=== PATIENT | female | born 1945 | race Caucasian/White ===

== ENCOUNTER 2018-08-27 18:05 | Inpatient (IN) | payer MEDICARE, BC ==
[2018-08-27 18:57] LABS: Basophils % (A) 0 %; Eosinophils # (A) 0.1 k/uL (0-0.7); Eosinophils % (A) 1 %; HCT 43.2 % (34.0-46.0); HGB 14.2 gm/dL (11.4-16.0); Lymphocytes # (A) 1.1 k/uL (1.0-4.8); Lymphocytes % (A) 10 %; MCH 30.3 pg (25.0-35.0); Mean Platelet Volume 7.6; Monocytes % (A) 10 %; Neutrophils # (A) 7.7 k/uL (1.3-7.7); Neutrophils % (A) 75 %; Platelet Count 283 k/uL (150-450); RBC 4.69 m/uL (3.80-5.40); RDW 12.6 % (11.5-15.5); WBC 10.2 k/uL (3.8-10.6)
[2018-08-27 19:07] LABS: ALT 20 U/L (9-52); AST 33 U/L (14-36); Alkaline Phosphatase 126 U/L (38-126); Anion Gap 9 mmol/L; Blood Urea Nitrogen 9 mg/dL (7-17); Calcium 8.7 mg/dL (8.4-10.2); Carbon Dioxide 28 mmol/L (22-30); Chloride 96 mmol/L (98-107); Glucose 118 mg/dL (74-99); Potassium 3.7 mmol/L (3.5-5.1); Sodium 133 mmol/L (137-145); Total Bilirubin 0.9 mg/dL (0.2-1.3); Total Protein 5.9 g/dL (6.3-8.2)
[2018-08-27 19:11] LABS: INR 0.9 (<1.2); Partial Thromboplastin Time 26.9 sec (22.0-30.0)
[2018-08-27 19:17] LABS: Creatine Kinase 58 U/L (30-135)
[2018-08-27 19:31] LABS: Creatine Kinase MB 1.1 ng/mL (0.0-2.4); Troponin I <0.012 ng/mL (0.000-0.034)
--- NOTE | 2018-08-27 20:19 | XR ---
EXAMINATION TYPE: XR chest 2V DATE OF EXAM: 08/27/2018 COMPARISON: NONE HISTORY: Tachycardia TECHNIQUE: Frontal and lateral views of the chest are obtained. FINDINGS: There is pulmonary hyperinflation and flattening of the diaphragm. Heart size is normal. T here is patchy infiltrate in the mid and lower lung fish. There is coarsening of the interstitial m arkings. Bones are osteopenic. IMPRESSION: COPD and pulmonary fibrosis. Bilateral patchy lower lobe pneumonia. Small pleural effusi ons. No definite heart failure.
[2018-08-27] MEDS ORDERED: SODIUM CHLORIDE 0.9% 500 ML 500 ML IV STA (22:13)
[2018-08-27] MEDS ORDERED: IPRATROPIUM-ALBUTEROL 3 ML NEB INHALATION STA (22:13)
[2018-08-27] MEDS ORDERED: hydrALAZINE HCL 20 MG/ML 1 ML VIAL IVP STA (22:13)
--- NOTE | 2018-08-27 22:15 | ED ---
SOB HPI - General Chief Complaint: Recheck/Abnormal Lab/Rx Stated Complaint: HIGH BP, LOW O2 Time Seen by Provider: 08/27/18 22:13 Source: patient, family, RN notes reviewed, old records reviewed Mode of arrival: wheelchair Limitations: no limitations - History of Present Illness Initial Comments: This is a 72-year-old female the ER for evaluation. This patient presents for evaluation regards to shortness of breath cough and congestion. Also elevated blood pressure. Patient presented to urgent care was transferred ER for evaluation secondary to low oxygen levels elevated heart rate and elevated blood pressure. Patient states she has not been feeling well. Denies sick contacts denies recent hospitalizations. Patient does admit to recent diagnosis of COPD. MD Complaint: shortness of breath, cough, pain with inspiration -: days(s) Severity: mild Severity scale (1-10): 3 Quality: aching Consistency: constant Improves With: oxygen, rest, bronchodilators Worsens With: exertion Known History Of: COPD Context: recent URI Associated Symptoms: fever, cough - Related Data Home Medications Medication Instructions Recorded Confirmed Cholecalciferol [Vitamin D3] 1,000 unit PO DAILY 08/27/18 08/27/18 Levalbuterol Tartrate [Xopenex Hfa 1 - 2 puff INHALATION RT-QID PRN 08/27/1810/14 Inhaler] Naproxen Sodium [Aleve] 220 mg PO BID PRN 08/27/18 08/27/18 Vitamin B Complex 1 cap PO DAILY 08/27/18 08/27/18 Allergies Allergy/AdvReac Type Severity Reaction Status Date / Time iodine Allergy Anaphylaxis Verified 08/27/18 23:15 Penicillins Allergy Anaphylaxis Verified 08/27/18 23:15 Review of Systems ROS Statement: Those systems with pertinent positive or pertinent negative responses have been documented in the HPI. ROS Other: All systems not noted in ROS Statement are negative. Past Medical History Past Medical History: COPD, Thyroid Disorder Additional Past Medical History / Comment(s): colitis History of Any Multi-Drug Resistant Organisms: None Reported Past Surgical History: Cholecystectomy, Hysterectomy Additional Past Surgical History / Comment(s): throidectomy Smoking Status: Former smoker Past Alcohol Use History: None Reported Past Drug Use History: None Reported - Past Family History Father Family Medical History: No Reported History Mother Family Medical History: Hypertension General Exam Limitations: no limitations General appearance: alert, anxious, cachectic Head exam: Present: atraumatic, normocephalic, normal inspection Eye exam: Present: normal appearance, PERRL, EOMI. Absent: scleral icterus, conjunctival injection, periorbital swelling ENT exam: Present: normal exam, mucous membranes moist Neck exam: Present: normal inspection. Absent: tenderness, meningismus, lymphadenopathy Respiratory exam: Present: normal lung sounds bilaterally. Absent: respiratory distress, wheezes, rales, rhonchi, stridor Cardiovascular Exam: Present: normal rhythm, tachycardia, normal heart sounds. Absent: systolic murmur, diastolic murmur, rubs, gallop, clicks GI/Abdominal exam: Present: soft, normal bowel sounds. Absent: distended, tenderness, guarding, rebound, rigid Extremities exam: Present: normal inspection, full ROM, normal capillary refill. Absent: tenderness, pedal edema, joint swelling, calf tenderness Back exam: Present: normal inspection Neurological exam: Present: alert, oriented X3, CN II-XII intact Psychiatric exam: Present: normal affect, normal mood Skin exam: Present: warm, dry, intact, normal color. Absent: rash Course Vital Signs 08/27/18 08/27/18 08/27/18 18:24 23:00 23:07 Temperature 98.6 F Pulse Rate 121 H 120 H Respiratory 18 20 Rate Blood Pressure 184/104 O2 Sat by Pulse 95 Oximetry 08/27/18 08/27/18 08/27/18 23:20 23:28 23:30 Temperature Pulse Rate 124 H 126 H 130 H Respiratory 23 16 Rate Blood Pressure 177/99 177/99 O2 Sat by Pulse 100 98 Oximetry 08/27/18 08/27/18 08/27/18 23:40 23:50 23:59 Temperature Pulse Rate 133 H 135 H 132 H Respiratory 30 H 22 30 H Rate Blood Pressure 177/99 177/99 O2 Sat by Pulse 95 99 100 Oximetry 08/28/18 08/28/18 08/28/18 00:00 00:10 00:20 Temperature Pulse Rate 135 H 135 H 135 H Respiratory 24 19 18 Rate Blood Pressure 166/92 166/92 166/92 O2 Sat by Pulse 92 L 94 L 96 Oximetry 08/28/18 08/28/18 08/28/18 00:30 00:37 00:40 Temperature Pulse Rate 131 H 134 H 133 H Respiratory 20 18 20 Rate Blood Pressure 172/89 172/89 172/89 O2 Sat by Pulse 97 98 98 Oximetry 08/28/18 08/28/18 08/28/18 00:50 01:00 01:10 Temperature 98.0 F Pulse Rate 133 H 133 H 131 H Respiratory 18 20 17 Rate Blood Pressure 171/93 171/93 162/83 O2 Sat by Pulse 98 99 98 Oximetry - Reevaluation(s) Reevaluation #1: 08/27/18 23:17 Medical record is reviewed Reevaluation #2: 08/27/18 23:17 Patient given breathing treatment, symptom management here in the emergency room as well as blood pressure control Medical Decision Making - Medical Decision Making 72 female the ER for evaluation of shortness of breath. New-onset of COPD, patient also has pneumonia will admit for breathing treatments and antibiotics. - Lab Data Result diagrams: 08/28/18 04:16 08/28/18 04:16 Lab Results 08/27/18 08/27/18 08/27/18 Range/Units 18:28 18:28 18:28 WBC 10.2 (3.8-10.6) k/uL RBC 4.69 (3.80-5.40) m/uL Hgb 14.2 (11.4-16.0) gm/dL Hct 43.2 (34.0-46.0) % MCV 92.0 (80.0-100.0) fL MCH 30.3 (25.0-35.0) pg MCHC 33.0 (31.0-37.0) g/dL RDW 12.6 (11.5-15.5) % Plt Count 283 (150-450) k/uL Neutrophils % 75 % Lymphocytes % 10 % Monocytes % 10 % Eosinophils % 1 % Basophils % 0 % Neutrophils # 7.7 (1.3-7.7) k/uL Lymphocytes # 1.1 (1.0-4.8) k/uL Monocytes # 1.0 (0-1.0) k/uL Eosinophils # 0.1 (0-0.7) k/uL Basophils # 0.0 (0-0.2) k/uL PT (9.0-12.0) sec INR (<1.2) APTT (22.0-30.0) sec Sodium 133 L (137-145) mmol/L Potassium 3.7 (3.5-5.1) mmol/L Chloride 96 L (98-107) mmol/L Carbon Dioxide 28 (22-30) mmol/L Anion Gap 9 mmol/L BUN 9 (7-17) mg/dL Creatinine 0.41 L (0.52-1.04) mg/dL Est GFR (CKD-EPI)AfAm >90 (>60 ml/min/1.73 sqM) Est GFR (CKD-EPI)NonAf >90 (>60 ml/min/1.73 sqM) Glucose 118 H (74-99) mg/dL Calcium 8.7 (8.4-10.2) mg/dL Total Bilirubin 0.9 (0.2-1.3) mg/dL AST 33 (14-36) U/L ALT 20 (9-52) U/L Alkaline Phosphatase 126 (38-126) U/L Total Creatine Kinase 58 (30-135) U/L CK-MB (CK-2) 1.1 (0.0-2.4) ng/mL CK-MB (CK-2) Rel Index 1.9 Troponin I <0.012 (0.000-0.034) ng/mL Total Protein 5.9 L (6.3-8.2) g/dL Albumin 3.0 L (3.5-5.0) g/dL 08/27/18 Range/Units 18:28 WBC (3.8-10.6) k/uL RBC (3.80-5.40) m/uL Hgb (11.4-16.0) gm/dL Hct (34.0-46.0) % MCV (80.0-100.0) fL MCH (25.0-35.0) pg MCHC (31.0-37.0) g/dL RDW (11.5-15.5) % Plt Count (150-450) k/uL Neutrophils % % Lymphocytes % % Monocytes % % Eosinophils % % Basophils % % Neutrophils # (1.3-7.7) k/uL Lymphocytes # (1.0-4.8) k/uL Monocytes # (0-1.0) k/uL Eosinophils # (0-0.7) k/uL Basophils # (0-0.2) k/uL PT 10.0 (9.0-12.0) sec INR 0.9 (<1.2) APTT 26.9 (22.0-30.0) sec Sodium (137-145) mmol/L Potassium (3.5-5.1) mmol/L Chloride (98-107) mmol/L Carbon Dioxide (22-30) mmol/L Anion Gap mmol/L BUN (7-17) mg/dL Creatinine (0.52-1.04) mg/dL Est GFR (CKD-EPI)AfAm (>60 ml/min/1.73 sqM) Est GFR (CKD-EPI)NonAf (>60 ml/min/1.73 sqM) Glucose (74-99) mg/dL Calcium (8.4-10.2) mg/dL Total Bilirubin (0.2-1.3) mg/dL AST (14-36) U/L ALT (9-52) U/L Alkaline Phosphatase (38-126) U/L Total Creatine Kinase (30-135) U/L CK-MB (CK-2) (0.0-2.4) ng/mL CK-MB (CK-2) Rel Index Troponin I (0.000-0.034) ng/mL Total Protein (6.3-8.2) g/dL Albumin (3.5-5.0) g/dL - Radiology Data Radiology results: report reviewed (CXR positive for bilateral pneumonia), image reviewed Disposition Clinical Impression: Community acquired bacterial pneumonia, COPD (chronic obstructive pulmonary disease), Hypertension Disposition: ADMITTED IP TO THIS HOSP Condition: Fair Is patient prescribed a controlled substance at d/c from ED?: No
[2018-08-27] MEDS ORDERED: methylPREDNISolone SOD SUCCI 125 MG/2 ML VIAL IV STA (22:42)
[2018-08-27] MEDS ORDERED: PNEUMONIA PROTOCOL UTILIZED 1 EACH MISC PO PRN (23:26)
[2018-08-27] MEDS ORDERED: AZITHROMYCIN 500 MG in SODIUM CHLORIDE 0.9% 250 ML IVPB STA (23:26)
[2018-08-28] MEDS: LORazepam 2 MG/ML INJ IV PRN ×3 (00:13→21:15)
[2018-08-28] MEDS: SODIUM CHLORIDE 0.9% 1,000 ML IV SCH ×4 (00:17→23:05)
[2018-08-28] MEDS ORDERED: HYDROcodone/APAP 5-325MG 1 EACH TAB PO PRN (01:00)
[2018-08-28 01:37] VITALS: BMI 17.2
[2018-08-28 04:35] LABS: Basophils % (A) 0 %; Eosinophils % (A) 0 %; HCT 42.3 % (34.0-46.0); HGB 13.3 gm/dL (11.4-16.0); Lymphocytes # (A) 0.4 k/uL (1.0-4.8); Lymphocytes % (A) 4 %; MCH 29.2 pg (25.0-35.0); MCHC 31.4 g/dL (31.0-37.0); MCV 93.1 fL (80.0-100.0); Mean Platelet Volume 7.4; Monocytes # (A) 0.2 k/uL (0-1.0); Monocytes % (A) 2 %; Neutrophils # (A) 8.2 k/uL (1.3-7.7); Neutrophils % (A) 93 %; Platelet Count 262 k/uL (150-450); RBC 4.54 m/uL (3.80-5.40); RDW 12.5 % (11.5-15.5); WBC 8.8 k/uL (3.8-10.6)
[2018-08-28 04:48] LABS: Anion Gap 9 mmol/L; Blood Urea Nitrogen 9 mg/dL (7-17); Calcium 8.1 mg/dL (8.4-10.2); Carbon Dioxide 25 mmol/L (22-30); Chloride 100 mmol/L (98-107); Glucose 151 mg/dL (74-99); Potassium 3.5 mmol/L (3.5-5.1); Sodium 134 mmol/L (137-145)
[2018-08-28] MEDS: methylPREDNISolone SOD SUCCI 125 MG/2 ML VIAL IV SCH ×4 (05:24→23:04)
--- NOTE | 2018-08-28 07:52 | HP ---
HISTORY AND PHYSICAL CHIEF COMPLAINT: Shortness of breath. HISTORY OF PRESENT ILLNESS: This is a 72-year-old woman with a past medical history of multiple medical problems including COPD, history of hypertension, colitis, history of cholecystectomy, thyroidectomy being followed by Dr. Andres in the outpatient setting, had not been feeling well for the past several days. Patient has shortness of breath with cough and congestion. Patient presented to Urgent Care, subsequently transferred to the ER. Patient was found to have low oxygen. Patient also had bilateral pneumonia on the base area. The patient is also found to have severe tachycardia as well as anxiety attacks also. The patient admitted for further evaluation and treatment. There is no history of fever, rigors or chills. No history of headache, loss of consciousness or seizures. PAST MEDICAL: COPD, hypothyroidism, history of colitis, cholecystectomy, hysterectomy. MEDICATIONS: Prior to admission; 1. Vitamin B complex 1 p.o. daily. 2. Naprosyn 20 mcg p.o. daily. 3. Xopenex 1 to 2 puffs q.i.d. p.r.n. 4. Vitamin D3 one thousand daily. ALLERGIES: ntd FAMILY HISTORY: No history of heart disease or strokes in the family. SOCIAL HISTORY: Previous history of smoking. No history of current smoking or alcohol. REVIEW OF SYSTEMS: ENT: No diminished hearing or vision. CARDIOVASCULAR: As mentioned earlier. RESPIRATORY: As mentioned earlier. GI: No nausea. : No dysuria. NERVOUS SYSTEM: No numbness or weakness. ALLERGY/IMMUNOLOGY: No asthma or hayfever. MUSCULOSKELETAL: As mentioned earlier. RHEUMATOLOGY: As mentioned earlier. ENDOCRINE: No history of diabetes or hypothyroidism. CONSTITUTIONAL: Negative. DERMATOLOGY: Negative. PSYCHIATRY: As mentioned earlier. PHYSICAL EXAM: Patient is alert and oriented x3. The pulse is 135, blood pressure 160/92, respiration 24, temperature normal, pulse ox 98% on 2 L. HEENT: Conjunctivae normal. NECK: No jugular venous distension. CARDIOVASCULAR SYSTEM: S1, S2, muffled. RESPIRATORY: Breath sounds diminished in the bases, bilateral scattered rhonchi , no crackles. ABDOMEN: Soft, nontender. LEGS: No edema, no swelling. NERVOUS SYSTEM: No focal deficits. LABS: CBC within normal limits. Sodium 133. Albumin is 3, influenza negative. ASSESSMENT: 1. Chronic obstructive pulmonary disease acute exacerbation with acute bilateral pneumonia possibly gram-negative. 2. Tachycardia sinus. 3. Anxiety. 4. Hyponatremia. 5. History of hypothyroidism. 6. Colitis. 7. Cholecystis. 8. History of hysterectomy. RECOMMENDATION: In this 72-year-old woman who presented with multiple complex medical issues, will monitor the patient closely. Continue with the current management and symptomatic treatment. Will initiate broad-spectrum IV antibiotics and also consult Dr. Andres. I would also consult Cardiology for tachycardia, otherwise steroids, DVT prophylaxis. Prognosis guarded because of multiple complex medical issues. Resume the home medications. Guarded prognosis because of multiple complex medical issues. Further recommendations to follow. Also recommend a TSH evaluation also because of tachycardia. See orders for further details. MMODL / IJN: [id number] / MTDD
[2018-08-28] MEDS ORDERED: NON-FORMULARY DRUG (Vitamin B Complex [Vitamin B Complex] 1 CAP) PO SCH (09:00)
[2018-08-28] MEDS: BUDESONIDE 1 MG/2 ML NEBU INHALATION SCH ×2 (09:59→20:23)
[2018-08-28] MEDS: IPRATROPIUM-ALBUTEROL 3 ML NEB INHALATION SCH ×4 (09:59→20:23)
[2018-08-28] MEDS: ENOXAPARIN 40 MG/0.4 ML SYRINGE SQ SCH (10:15)
[2018-08-28] MEDS: PANTOPRAZOLE 40 MG TABLET PO SCH (10:16)
--- NOTE | 2018-08-28 13:49 | XR ---
EXAMINATION TYPE: XR chest 2V DATE OF EXAM: 08/28/2018 COMPARISON: 08/27/2018 TECHNIQUE: PA and lateral views submitted. HISTORY: Cough, pneumonia FINDINGS: Bilateral lower lobe consolidation and small effusion with more localized consolidation along the rig ht lung base. Prominent interstitium. Diffuse severe emphysematous changes. No pneumothorax. Apical p leural thickening. Heart size normal. Atherosclerotic change aorta. IMPRESSION: 1. Bilateral lower lobe infiltrate and small effusion. Diffuse COPD seen. Correlate to exclude underl lia vascular congestion superimposed on a background of COPD.
--- NOTE | 2018-08-28 14:10 | P.CRDCN ---
History of Present Illness History of present illness: This is a pleasant 72-year-old female past medical history COPD and hypothyroidism. She has also former smoker. She denies history of coronary artery disease, hypertension, diabetes mellitus or dyslipidemia. She has never followed with a technologist development for any reason. We have been asked to see her in consultation for tachycardia. She presented to the urgent care yesterday secondary to shortness of breath, cough and congestion. Upon arrival she was noted to have hypoxia and elevated blood pressure. She was transferred here for further evaluation. Upon arrival blood pressure was 184/104 heart rate percent on room air and afebrile. She has remained tachycardic in the 120-130 range. Her blood pressure has remained elevated since admission. She has been diagnosed with bilateral pneumonia and started on antibiotics. She continues to complain of shortness of breath, generalized weakness and fatigue, diaphoresis and palpitations. She denies chest pain, dizziness, nausea or vomiting. Currently maintained on Zithromax IV, Rocephin IV, Solu-Medrol every 6 hours. She is seen and examined laying flat in bed sleeping. She is in no acute distress. Her skin feels clammy to touch. EKG reveals sinus tachycardia with no acute ST or T wave abnormalities noted. Telemetry tracings reveal sinus tachycardia. Chest x-ray on admission reveals COPD and pulmonary fibrosis bilateral patchy lower lobe pneumonia and a small pleural effusion. Repeat this morning reveals bilateral lower lobe infiltrate and small effusion, diffuse COPD and possibility of underlying vascular congestion superimposed on COPD considered. Laboratory data reviewed, WBC 8.8, hemoglobin 13.3, platelets 262, sodium 134, potassium 3.5, creatinine 0.34, lactic acid 2. 9 repeat 1.0, troponin negative 1, TSH 3.29. She has influenza A and B-. Most recent echocardiogram obtained in 2014 reveals preserved left ventricular systolic function with ejection fraction 60-65% with mild tricuspid regurgitation. At the time of my exam: CONSTITUTIONAL: Denies fever. Denies chills. EYES: Denies blurred vision. Denies vision changes. Denies eye pain. EARS, NOSE, MOUTH & THROAT: Denies headache. Denies sore throat. Denies ear pain. CARDIOVASCULAR: Denies chest pain. Complains of shortness of breath. Denies orthopnea. Denies PND. Denies palpitations. RESPIRATORY: Complains of cough. GASTROINTESTINAL: Denies abdominal pain. Denies diarrhea. Denies constipation. Denies nausea. Denies vomiting. MUSCULOSKELETAL: Denies myalgias. INTEGUMENTARY: Denies pruitis. Denies rash. NEUROLOGIC: Denies numbness. Denies tingling. Denies weakness. PSYCHIATRIC: Denies anxiety. Denies depression. ENDOCRINE: Denies fatigue. Denies weight change. Denies polydipsia. Denies polyurina. GENITOURINARY: Denies burning, hematuria or urgency with micturation. HEMATOLOGIC: Denies history of anemia. Denies bleeding. Blood pressure 162/99 heart rate 127 afebrile maintaining oxygen saturation cannula GENERAL: This is a 72-year-old female in no apparent distress at the time of my examination. Mildly diaphoretic. HEENT: Head is atraumatic, normocephalic. Pupils are equal, round. Sclerae anicteric. Conjunctivae are clear. Mucous membranes of the mouth are moist. Neck is supple. There is no jugular venous distention. No carotid bruit is heard. LUNGS: C course rhonchi noted no rales or wheezes. No chest wall tenderness is noted on palpation or with deep breathing. HEART: Regular rate and rhythm with faint systolic ejection murmur at the base, no rubs or gallops. S1 and S2 heard. ABDOMEN: Soft, nontender. Bowel sounds are heard. No organomegaly noted. EXTREMITIES: No evidence of peripheral edema and no calf tenderness noted. VASCULAR: Radial and dorsalis pedis pulses palpated, no evidence of clubbing. NEUROLOGIC: Patient is awake, alert and oriented x3. ASSESSMENT Bilateral pneumonia Sinus tachycardia Lactic acidosis COPD Hypertension Hyponatremia PLAN Obtain 2-D echocardiogram and Doppler study to assess cardiac structure and function. Initiate the patient on losartan 25 mg daily. Tachycardia is sinus, related to an underlying cause most likely secondary to pneumonia. We will continue to follow and make recommendations accordingly. Thank you kindly for this consultation. Nurse Practitioner note has been reviewed, I agree with a documented findings and plan of care. Patient was seen and examined. Past Medical History Past Medical History: COPD, Thyroid Disorder Additional Past Medical History / Comment(s): colitis History of Any Multi-Drug Resistant Organisms: None Reported Past Surgical History: Cholecystectomy, Hysterectomy Additional Past Surgical History / Comment(s): thyroidectomy Smoking Status: Former smoker Past Alcohol Use History: None Reported Past Drug Use History: None Reported - Past Family History Father Family Medical History: No Reported History Mother Family Medical History: Hypertension Medications and Allergies Home Medications Medication Instructions Recorded Confirmed Type Cholecalciferol [Vitamin D3] 1,000 unit PO DAILY 08/27/18 08/27/18 History Levalbuterol Tartrate [Xopenex Hfa 1 - 2 puff INHALATION RT-QID PRN 08/27/1810/14 History Inhaler] Naproxen Sodium [Aleve] 220 mg PO BID PRN 08/27/18 08/27/18 History Vitamin B Complex 1 cap PO DAILY 08/27/18 08/27/18 History Allergies Allergy/AdvReac Type Severity Reaction Status Date / Time iodine Allergy Anaphylaxis Verified 08/27/18 23:15 Penicillins Allergy Anaphylaxis Verified 08/27/18 23:15 Physical Exam Vitals: Vital Signs Temp Pulse Pulse Resp BP BP Pulse Ox 08/28/18 10:15 127 H 18 08/28/18 10:10 120 H 08/28/18 09:59 116 H 08/28/18 07:00 98.5 F 127 H 18 162/99 96 08/28/18 02:03 98.6 F 132 H 15 160/85 94 L 08/28/18 01:10 98.0 F 131 H 17 162/83 98 08/28/18 01:00 133 H 20 171/93 99 08/28/18 00:50 133 H 18 171/93 98 08/28/18 00:40 133 H 20 172/89 98 08/28/18 00:37 134 H 18 172/89 98 08/28/18 00:30 131 H 20 172/89 97 08/28/18 00:20 135 H 18 166/92 96 08/28/18 00:10 135 H 19 166/92 94 L 08/28/18 00:00 135 H 24 166/92 92 L 08/27/18 23:59 132 H 30 H 100 08/27/18 23:50 135 H 22 177/99 99 08/27/18 23:40 133 H 30 H 177/99 95 08/27/18 23:30 130 H 16 177/99 98 08/27/18 23:28 126 H 08/27/18 23:20 124 H 23 177/99 100 08/27/18 23:07 120 H 08/27/18 23:00 20 08/27/18 18:24 98.6 F 121 H 18 184/104 95 Intake and Output 08/27/18 08/28/18 08/28/18 22:59 06:59 14:59 Other: Weight 45.359 kg 45.359 kg Results 08/28/18 04:16 08/28/18 04:16 Cardiac Enzymes 08/27/18 08/27/18 Range/Units 18:28 18:28 AST 33 (14-36) U/L CK-MB (CK-2) 1.1 (0.0-2.4) ng/mL Troponin I <0.012 (0.000-0.034) ng/mL Coagulation 08/27/18 Range/Units 18:28 PT 10.0 (9.0-12.0) sec APTT 26.9 (22.0-30.0) sec CBC 08/27/18 08/28/18 Range/Units 18:28 04:16 WBC 10.2 8.8 (3.8-10.6) k/uL RBC 4.69 4.54 (3.80-5.40) m/uL Hgb 14.2 13.3 (11.4-16.0) gm/dL Hct 43.2 42.3 (34.0-46.0) % Plt Count 283 262 (150-450) k/uL Comprehensive Metabolic Panel 08/27/18 08/28/18 Range/Units 18:28 04:16 Sodium 133 L 134 L (137-145) mmol/L Potassium 3.7 3.5 (3.5-5.1) mmol/L Chloride 96 L 100 (98-107) mmol/L Carbon Dioxide 28 25 (22-30) mmol/L BUN 9 9 (7-17) mg/dL Creatinine 0.41 L 0.34 L (0.52-1.04) mg/dL Glucose 118 H 151 H (74-99) mg/dL Calcium 8.7 8.1 L (8.4-10.2) mg/dL AST 33 (14-36) U/L ALT 20 (9-52) U/L Alkaline Phosphatase 126 (38-126) U/L Total Protein 5.9 L (6.3-8.2) g/dL Albumin 3.0 L (3.5-5.0) g/dL Current Medications Generic Name Dose Route Start Last Admin Trade Name Freq PRN Reason Stop Dose Admin Hydrocodone Bitart/Acetaminophen 1 each 08/28/18 01:00 [place] 5-325 PO Q6HR PRN Pain Albuterol/Ipratropium 3 ml 08/28/18 08:00 08/28/18 13:21 Duoneb 0.5 Mg-3 Mg/3 Ml Soln INHALATION Not Given RT-QID PRISCILLA Azithromycin 500 mg 08/28/18 23:28 Zithromax PO Q24H PRISCILLA Budesonide 1 mg 08/28/18 08:00 08/28/18 09:59 Pulmicort INHALATION 1 mg RT-BID PRISCILLA Administration Enoxaparin Sodium 40 mg 08/28/18 09:00 08/28/18 10:15 Lovenox SQ 40 mg DAILY PRISCILLA Administration Ceftriaxone Sodium 1,000 mg/ 50 mls @ 100 mls/hr 08/28/18 23:28 Sodium Chloride IVPB Q24H PRISCILLA Sodium Chloride 1,000 mls @ 100 mls/hr 08/27/18 23:30 08/28/18 10:16 Saline 0.9% IV 100 mls/hr .Q10H PRISCILLA Administration Lorazepam 0.5 mg 08/28/18 00:00 08/28/18 00:13 Ativan IV 08/30/18 13:00 0.5 mg Q8HR PRN Administration Anxiety Methylprednisolone Sodium Succinate 60 mg 08/28/18 06:00 08/28/18 12:20 Solu-Medrol IV 60 mg Q6HR PRISCILLA Administration Miscellaneous Information 1 each 08/27/18 23:26 Pneumonia Protocol Utilized PO ONCE PRN Per Protocol Naproxen 250 mg 08/28/18 00:59 Naprosyn PO BID PRN Pain Pantoprazole Sodium 40 mg 08/28/18 07:30 08/28/18 10:16 Protonix PO Not Given AC-[id number] PRISCILLA Intake and Output 08/27/18 08/28/18 08/28/18 22:59 06:59 14:59 Other: Weight 45.359 kg 45.359 kg 08/28/18 04:16 08/28/18 04:16
--- NOTE | 2018-08-28 14:30 | P.CNPUL ---
History of Present Illness Consult date: 08/28/18 Requesting physician: Po Monroy Reason for consult: dyspnea, cough, COPD, pneumonia, pleural effusion, abnormal CXR/CT Chief complaint: Cough, congestion, shortness of breath, weakness History of present illness: This is a 72-year-old white female patient recently diagnosed with COPD, presented to the emergency department on 08/27/2018 at 1800 for evaluation of worsening shortness of breath, cough, chest congestion, elevated blood pressure. Patient presented to the urgent care and transferred to the emergency department in view of hypoxemia, tachycardia and hypertension. Patient had a recent upper respiratory infection. Chest x-ray showed COPD, coarsening of the interstitial markings, bilateral patchy lower lobe pneumonia, small pleural effusions. Lab work was negative for any leukocytosis, WBC was 10.2, hemoglobin is 14.2, sodium was 133, potassium is 3.7, chloride was 96, bun was 9, creatinine was 0.41, asthma lactic acid was 2.9, improved with fluid boluses, down to 1, troponin was negative 1, influenza was negative. Follow- up chest x-ray today shows bilateral lower lobe infiltrate and small effusion, prominent interstitium, suggesting fluid overload. Patient has been afebrile, but diaphoretic, she is tachycardic, with a heart rate up to 120 BPM, pressure is 162/99, pulse ox on 3 L per nasal cannula is 96%, she is lethargic, easily arousable, fatigued and weak. She was started on a combination of Rocephin and Zithromax, belies bronchodilators, IV steroids. Echo with Doppler has been ordered, cardiology is following. Of note patient's FEV1 on 01/14/2018 was 0.45 L, or 22% of predicted, and low DLCO of 25% predicted, consistent with stage IV COPD, emphysema. Patient did have a 6 minute walk test in the office, noted to be hypoxemic, with a pulse ox of 86% at ambulation, she qualified for home oxygen, but has been reluctant to use it. She was also reluctant to use since inhalers and nebulized treatments, currently just on Xopenex HFA 45 mcg 2 puffs every 6 hours as needed. Does not have a primary care provider, was actually referred to Dr. Andres by the urgent care clinic where she would go with symptoms of recurrent cough, shortness of breath and wheezing. Review of Systems All systems: negative Constitutional: Denies chills, Denies fever Eyes: denies blurred vision, denies pain Ears, nose, mouth and throat: Denies headache, Denies sore throat Cardiovascular: Denies chest pain, Denies shortness of breath Respiratory: Reports cough, Reports cough with sputum, Reports dyspnea, Reports respiratory infections, Reports wheezing Gastrointestinal: Denies abdominal pain, Denies diarrhea, Denies nausea, Denies vomiting Genitourinary: Denies dysuria, Denies hematuria Musculoskeletal: Denies myalgias Integumentary: Denies pruritus, Denies rash Neurological: Denies numbness, Denies weakness Psychiatric: Denies anxiety, Denies depression Endocrine: Denies fatigue, Denies weight change Past Medical History Past Medical History: COPD, Thyroid Disorder Additional Past Medical History / Comment(s): colitis History of Any Multi-Drug Resistant Organisms: None Reported Past Surgical History: Cholecystectomy, Hysterectomy Additional Past Surgical History / Comment(s): thyroidectomy Smoking Status: Former smoker Past Alcohol Use History: None Reported Past Drug Use History: None Reported - Past Family History Father Family Medical History: No Reported History Mother Family Medical History: Hypertension Medications and Allergies Home Medications Medication Instructions Recorded Confirmed Type Cholecalciferol [Vitamin D3] 1,000 unit PO DAILY 08/27/18 08/27/18 History Levalbuterol Tartrate [Xopenex Hfa 1 - 2 puff INHALATION RT-QID PRN 08/27/1810/14 History Inhaler] Naproxen Sodium [Aleve] 220 mg PO BID PRN 08/27/18 08/27/18 History Vitamin B Complex 1 cap PO DAILY 08/27/18 08/27/18 History Allergies Allergy/AdvReac Type Severity Reaction Status Date / Time iodine Allergy Anaphylaxis Verified 08/27/18 23:15 Penicillins Allergy Anaphylaxis Verified 08/27/18 23:15 Physical Exam Vitals: Vital Signs Temp Pulse Pulse Resp BP BP Pulse Ox 08/28/18 10:15 127 H 18 08/28/18 10:10 120 H 08/28/18 09:59 116 H 08/28/18 07:00 98.5 F 127 H 18 162/99 96 08/28/18 02:03 98.6 F 132 H 15 160/85 94 L 08/28/18 01:10 98.0 F 131 H 17 162/83 98 08/28/18 01:00 133 H 20 171/93 99 08/28/18 00:50 133 H 18 171/93 98 08/28/18 00:40 133 H 20 172/89 98 08/28/18 00:37 134 H 18 172/89 98 08/28/18 00:30 131 H 20 172/89 97 08/28/18 00:20 135 H 18 166/92 96 08/28/18 00:10 135 H 19 166/92 94 L 08/28/18 00:00 135 H 24 166/92 92 L 08/27/18 23:59 132 H 30 H 100 08/27/18 23:50 135 H 22 177/99 99 08/27/18 23:40 133 H 30 H 177/99 95 08/27/18 23:30 130 H 16 177/99 98 08/27/18 23:28 126 H 08/27/18 23:20 124 H 23 177/99 100 08/27/18 23:07 120 H 08/27/18 23:00 20 08/27/18 18:24 98.6 F 121 H 18 184/104 95 Intake and Output 08/27/18 08/28/18 08/28/18 22:59 06:59 14:59 Other: Weight 45.359 kg 45.359 kg GENERAL EXAM: Somnolent, but easily arousable, 72-year-old frail looking elderly female, 2 L per nasal cannula, mildly short of breath, has a congested nonproductive cough, diaphoretic HEAD: Normocephalic/atraumatic. EYES: Normal reaction of pupils, equal size. Conjunctiva pink, sclera white. NOSE: Clear with pink turbinates. THROAT: No erythema or exudates. NECK: No masses, no JVD, no thyroid enlargement, no adenopathy. CHEST: No chest wall deformity. Symmetrical expansion. LUNGS: Diffuse rhonchi, rales, wheezes CVS: Regular rate and rhythm, normal S1 and S2, no gallops, no murmurs, no rubs. Tachycardic, with a rate up to 127 BPM ABDOMEN: Soft, nontender. No hepatosplenomegaly, normal bowel sounds, no guarding or rigidity. EXTREMITIES: No clubbing, no edema, no cyanosis, 2+ pulses and upper and lower extremities. MUSCULOSKELETAL: Muscle strength and tone normal. SPINE: No scoliosis or deformity SKIN: No rashes CENTRAL NERVOUS SYSTEM: Somnolent and oriented -3. No focal deficits, tone is normal in all 4 extremities. Results - Laboratory Findings CBC and BMP: 08/28/18 04:16 08/28/18 04:16 PT/INR, D-dimer PT 10.0 sec (9.0-12.0) 08/27/18 18:28 INR 0.9 (<1.2) 08/27/18 18:28 Abnormal lab findings: Abnormal Labs 08/27/18 08/28/18 08/28/18 18:28 00:20 04:16 Neutrophils # 8.2 H Lymphocytes # 0.4 L Sodium 133 L Chloride 96 L Creatinine 0.41 L Glucose 118 H Plasma Lactic Acid Krishan 2.9 H* Calcium Total Protein 5.9 L Albumin 3.0 L 08/28/18 04:16 Neutrophils # Lymphocytes # Sodium 134 L Chloride Creatinine 0.34 L Glucose 151 H Plasma Lactic Acid Krishan Calcium 8.1 L Total Protein Albumin - Diagnostic Findings Chest x-ray: report reviewed, image reviewed Assessment and Plan Plan: Assessment: #1. Acute on chronic respiratory failure secondary to bibasilar infiltrates small effusions, likely related to community-acquired pneumonia #2. Lactic acidosis, improved with IV boluses #3. Mild hyponatremia, improving #4. Acute exacerbation of COPD #5. Stage IV COPD,pulmonary emphysema, chronic hypoxemic respiratory failure, underlying FEV1 of 0.45 L or 22% of predicted, with diffusion capacity of 25% of predicted. Patient is reluctant to wear home O2, although she qualifies for it. ALso reluctant to use any inhalers or nebulized treatments #6. Hypothyroidism #7. Former smoker #8. History of peripheral arterial occlusive disease #9. Chronic exertional dyspnea, and cough #10. Tachycardia Plan: Continue antibiotic coverage, send a sputum culture, continue with IV Solu- Medrol, nebulized bronchodilators, Pulmicort. Chest x-rays have been reviewed with Dr. Ferro, and showed bibasilar infiltrates and small effusions, interstitial prominence suggesting fluid overload, and bibasilar pneumonia. GI and DVT prophylaxis. Colace pending, cardiology consult is pending. Obtain to closely follow I performed a history & physical examination of the patient and discussed their management with my nurse practitioner, Daisy Sadler. I reviewed the nurse practitioner's note and agree with the documented findings and plan of care. Lung sounds are positive for diffuse rhonchi and rales. The findings and the impression was discussed with the patient. I attest to the documentation by the nurse practitioner. Time with Patient: Greater than 30
[2018-08-28] MEDS: LOSARTAN 25 MG TAB PO SCH (16:47)
[2018-08-28 17:13] LABS: Glucose,Whole Blood 143 mg/dL (75-99)
[2018-08-28] MEDS: INSULIN ASPART 100 UNIT/ML 1 ML 10 ML VIAL SQ SCH ×2 (17:39→21:12)
[2018-08-28 20:13] LABS: Glucose,Whole Blood 178 mg/dL (75-99)
[2018-08-28] MEDS: AZITHROMYCIN 500 MG TAB PO SCH (23:04)
--- NOTE | 2018-08-29 00:16 | PN ---
PROGRESS NOTE DATE OF SERVICE: 09/24/2018. HISTORY: This 72-year-old woman was admitted with significant shortness of breath and COPD exacerbation also had cardiac arrhythmia, sinus tachycardia as well. The patient is being closely monitored. Lactic acid is elevated to 2.9. Influenza is negative. Cardiology saw the patient and is monitoring closely. Recent echocardiogram showed preserved ejection fraction. Bilateral pneumonia was suspected. Dr. Andres is following the patient closely and closely monitoring at this time. REVIEW OF SYSTEM: CARDIOVASCULAR: As mentioned. GI: As mentioned. : As mentioned. CURRENT MEDICATIONS: Reviewed, include: 1. [place] 5 mg daily. 2. DuoNeb q.i.d. 3. Zithromax 5 mg daily. 4. Pulmicort. 5. Rocephin 1 g daily. 6. Lovenox. 8. Ativan. 9. Cozaar. 10.Solu-Medrol. 11.Naprosyn. 12.Protonix. EXAM: Patient is alert, oriented x3. Pulse is 116, blood pressure 136/73, respirations 18, temperature 98.1, pulse ox 97% on room air. HEENT: Conjunctivae normal. NECK: No JVD. CARDIOVASCULAR: S1 and S2 muffled. LUNGS: Breath sounds diminished at the bases. Scattered rhonchi and crackles. ABDOMEN: Soft, nontender. EXTREMITIES: No edema, no swelling. NERVOUS SYSTEM: No focal deficits. LABS: CBC within normal. Sodium 134, glucose 134. ASSESSMENT: 1. Chronic obstructive pulmonary disease acute exacerbation with acute bibasilar pneumonia, possibly gram-negative, possibly community-acquired with early sepsis present on admission. 2. Elevated lactic acid. 3. Sinus tachycardia. 4. Anxiety. 5. Hyponatremia. 6. History hypothyroidism. 7. History of colitis. 8. History cholecystitis. 9. History of hysterectomy. RECOMMENDATIONS: Continue current management and symptomatic treatment. Cultures are negative so far. I would recommend continue the broad-spectrum IV antibiotics. Closely follow with Dr. Andres. Continue with steroids. Continue the rest of the medications. Guarded prognosis because of multiple complex medical issues. Further recommendations to follow. Continue Ativan for anxiety. MMODL / IJN: [id number] / MTDD
[2018-08-29 04:30] LABS: Hemoglobin A1C 5.4 % (4.0-6.0)
[2018-08-29] MEDS: methylPREDNISolone SOD SUCCI 125 MG/2 ML VIAL IV SCH ×3 (05:40→17:37)
[2018-08-29 07:11] LABS: Glucose,Whole Blood 157 mg/dL (75-99)
[2018-08-29] MEDS: INSULIN ASPART 100 UNIT/ML 1 ML 10 ML VIAL SQ SCH ×4 (07:42→20:43)
[2018-08-29] MEDS: PANTOPRAZOLE 40 MG TABLET PO SCH (07:42)
[2018-08-29] MEDS: LOSARTAN 25 MG TAB PO SCH (07:42)
[2018-08-29] MEDS: ENOXAPARIN 40 MG/0.4 ML SYRINGE SQ SCH (07:43)
[2018-08-29 08:22] LABS: Basophils # (A) 0.1 k/uL (0-0.2); Basophils % (A) 0 %; Eosinophils # (A) 0.1 k/uL (0-0.7); Eosinophils % (A) 0 %; HCT 38.1 % (34.0-46.0); HGB 12.4 gm/dL (11.4-16.0); Lymphocytes # (A) 0.7 k/uL (1.0-4.8); Lymphocytes % (A) 4 %; MCH 30.8 pg (25.0-35.0); MCHC 32.5 g/dL (31.0-37.0); MCV 94.7 fL (80.0-100.0); Mean Platelet Volume 8.6; Monocytes # (A) 0.5 k/uL (0-1.0); Monocytes % (A) 3 %; Neutrophils # (A) 17.5 k/uL (1.3-7.7); Neutrophils % (A) 92 %; Platelet Count 306 k/uL (150-450); RBC 4.03 m/uL (3.80-5.40)
[2018-08-29] MEDS: BUDESONIDE 1 MG/2 ML NEBU INHALATION SCH ×2 (08:34→20:18)
[2018-08-29] MEDS: IPRATROPIUM-ALBUTEROL 3 ML NEB INHALATION SCH ×4 (08:34→20:18)
[2018-08-29 08:37] LABS: Anion Gap 6 mmol/L; Blood Urea Nitrogen 13 mg/dL (7-17); Calcium 8.7 mg/dL (8.4-10.2); Carbon Dioxide 26 mmol/L (22-30); Chloride 106 mmol/L (98-107); Glucose 146 mg/dL (74-99); Potassium 3.9 mmol/L (3.5-5.1); Sodium 138 mmol/L (137-145)
--- NOTE | 2018-08-29 11:51 | ECHOF ---
Referral Reason:sob MEASUREMENTS -------- HEIGHT: 162.6 cm WEIGHT: 45.4 kg BP: RVIDd: 2.3 cm (< 3.3) IVSd: 0.7 cm (0.6 - 1.1) LVIDd: 3.7 cm (3.9 - 5.3) LVPWd: 0.8 cm (0.6 - 1.1) IVSs: 1.0 cm LVIDs: 2.3 cm LVPWs: 1.1 cm LAESV Index (A-L): 8.32 ml/m MV E [place]: 0.82 m/s MV DecT: 257 ms MV A [place]: 1.41 m/s MV E/A Ratio: 0.58 RAP: 15.00 mmHg RVSP: 48.25 mmHg FINDINGS -------- Resting tachycardia (HR>100bpm). This was a technically adequate study. The left ventricular size is normal. Left ventricular wall thickness is normal. Overall left vent ricular systolic function is normal with, an EF between 55 - 60 %. The right ventricle is normal in size and function. Normal LA size by volume 22+/-6 ml/m2. The right atrium is normal in size. There is mild aortic valve sclerosis. There is no evidence of aortic regurgitation. There is no e vidence of aortic stenosis. The mitral valve leaflets are mildly thickened. Moderate mitral annular calcification present. Th ere is trace to mild mitral regurgitation. Trace tricuspid regurgitation present. There is borderline pulmonary hypertension. The right vent ricular systolic pressure, as measured by Doppler, is 48.25mmHg. The pulmonic valve was not well visualized. The aortic root size is normal. The inferior vena cava is dilated with poor inspiratory collapse which is consistent with estimated r ight atrial pressure of 20 mmHg. There is no pericardial effusion. CONCLUSIONS -------- 1. Resting tachycardia (HR>100bpm). 2. This was a technically adequate study. 3. The left ventricular size is normal. 4. Left ventricular wall thickness is normal. 5. Overall left ventricular systolic function is normal with, an EF between 55 - 60 %. 6. Normal LA size by volume 22+/-6 ml/m2. 7. There is mild aortic valve sclerosis. 8. The mitral valve leaflets are mildly thickened. 9. Moderate mitral annular calcification present. 10. There is trace to mild mitral regurgitation. 11. Trace tricuspid regurgitation present. 12. There is borderline pulmonary hypertension. 13. The right ventricular systolic pressure, as measured by Doppler, is 48.25mmHg. 14. The pulmonic valve was not well visualized. 15. The aortic root size is normal. 16. The inferior vena cava is dilated with poor inspiratory collapse which is consistent with estimat ed right atrial pressure of 20 mmHg. 17. There is no pericardial effusion. PROBATION SUPERVISOR: Jaylan Solares RDCS
[2018-08-29 12:00] LABS: Glucose,Whole Blood 132 mg/dL (75-99)
--- NOTE | 2018-08-29 16:42 | P.PN ---
Subjective Progress Note Date: 08/29/18 Principal diagnosis: Acute on chronic respiratory failure secondary to basilar infiltrate small effusions, suspect mainly acquired pneumonia. This is a 72-year-old white female patient recently diagnosed with COPD, presented to the emergency department on 08/27/2018 at 1800 for evaluation of worsening shortness of breath, cough, chest congestion, elevated blood pressure. Patient presented to the urgent care and transferred to the emergency department in view of hypoxemia, tachycardia and hypertension. Patient had a recent upper respiratory infection. Chest x-ray showed COPD, coarsening of the interstitial markings, bilateral patchy lower lobe pneumonia, small pleural effusions. Lab work was negative for any leukocytosis, WBC was 10.2, hemoglobin is 14.2, sodium was 133, potassium is 3.7, chloride was 96, bun was 9, creatinine was 0.41, asthma lactic acid was 2.9, improved with fluid boluses, down to 1, troponin was negative 1, influenza was negative. Follow- up chest x-ray today shows bilateral lower lobe infiltrate and small effusion, prominent interstitium, suggesting fluid overload. Patient has been afebrile, but diaphoretic, she is tachycardic, with a heart rate up to 120 BPM, pressure is 162/99, pulse ox on 3 L per nasal cannula is 96%, she is lethargic, easily arousable, fatigued and weak. She was started on a combination of Rocephin and Zithromax, belies bronchodilators, IV steroids. Echo with Doppler has been ordered, cardiology is following. Of note patient's FEV1 on 01/14/2018 was 0.45 L, or 22% of predicted, and low DLCO of 25% predicted, consistent with stage IV COPD, emphysema. Patient did have a 6 minute walk test in the office, noted to be hypoxemic, with a pulse ox of 86% at ambulation, she qualified for home oxygen, but has been reluctant to use it. She was also reluctant to use since inhalers and nebulized treatments, currently just on Xopenex HFA 45 mcg 2 puffs every 6 hours as needed. Does not have a primary care provider, was actually referred to Dr. Andres by the urgent care clinic where she would go with symptoms of recurrent cough, shortness of breath and wheezing. The patient is seen again today 08/29/2017 in follow-up on the regular medical floor. She is awake and alert in no acute distress. She is breathing better today as compared to yesterday. Not quite back to her baseline. She is maintaining O2 saturations in the 90s on 2 L/m per nasal cannula. She's been afebrile. Slightly tachycardic. Blood culture reveals no growth to date. Urine culture pending. White count 19.0. Hemoglobin 12.4. Creatinine 0.40. She remains on ceftriaxone and azithromycin. Objective - Vital Signs Vital signs: Vital Signs Temp 97.9 F 08/29/18 15:00 Pulse 121 H 08/29/18 15:00 Resp 16 08/29/18 15:00 BP 127/76 08/29/18 15:00 Pulse Ox 96 08/29/18 15:00 Intake & Output 08/28/18 08/29/18 08/29/18 18:59 06:59 18:59 Intake Total 700 1850 Balance 700 1850 Weight 45.359 kg Intake: Intake, IV Titration 700 1350 Amount Sodium Chloride 0.9% 1, 700 1250 000 ml @ 100 mls/hr IV . Q10H [facility] Rx#:[id number] cefTRIAXone 1,000 mg In 100 Sodium Chloride 0.9% 50 ml @ 100 mls/hr IVPB Q24H [facility] Rx#:[id number] Oral 500 Other: Voiding Method Toilet # Voids 1 2 3 - Exam GENERAL EXAM: Awake, alert, 72-year-old frail looking elderly female, 2 L per nasal cannula, mildly short of breath, has a congested nonproductive cough, diaphoretic HEAD: Normocephalic/atraumatic. EYES: Normal reaction of pupils, equal size. Conjunctiva pink, sclera white. NOSE: Clear with pink turbinates. THROAT: No erythema or exudates. NECK: No masses, no JVD, no thyroid enlargement, no adenopathy. CHEST: No chest wall deformity. Symmetrical expansion. LUNGS: Diffuse rhonchi, rales, wheezes CVS: Regular rate and rhythm, normal S1 and S2, no gallops, no murmurs, no rubs. Tachycardic, with a rate up to 127 BPM ABDOMEN: Soft, nontender. No hepatosplenomegaly, normal bowel sounds, no guarding or rigidity. EXTREMITIES: No clubbing, no edema, no cyanosis, 2+ pulses and upper and lower extremities. MUSCULOSKELETAL: Muscle strength and tone normal. SPINE: No scoliosis or deformity SKIN: No rashes CENTRAL NERVOUS SYSTEM: Somnolent and oriented -3. No focal deficits, tone is normal in all 4 extremities. - Labs CBC & Chem 7: 08/29/18 07:09 08/29/18 07:09 Labs: Abnormal Lab Results - Last 24 Hours (Table) 08/28/18 08/28/18 08/29/18 Range/Units 17:01 20:02 06:53 WBC (3.8-10.6) k/uL Neutrophils # (1.3-7.7) k/uL Lymphocytes # (1.0-4.8) k/uL Creatinine (0.52-1.04) mg/dL Glucose (74-99) mg/dL POC Glucose (mg/dL) 143 H 178 H 157 H (75-99) mg/dL 08/29/18 08/29/18 08/29/18 Range/Units 07:09 07:09 11:41 WBC 19.0 H (3.8-10.6) k/uL Neutrophils # 17.5 H (1.3-7.7) k/uL Lymphocytes # 0.7 L (1.0-4.8) k/uL Creatinine 0.40 L (0.52-1.04) mg/dL Glucose 146 H (74-99) mg/dL POC Glucose (mg/dL) 132 H (75-99) mg/dL Microbiology - Last 24 Hours (Table) 08/28/18 16:07 Urine Culture - Preliminary Urine,Voided 08/28/18 00:20 Blood Culture - Preliminary Blood No Growth after 24 hours Assessment and Plan Assessment: Assessment: #1. Acute on chronic respiratory failure secondary to bibasilar infiltrates small effusions, likely related to community-acquired pneumonia #2. Lactic acidosis, improved with IV boluses #3. Mild hyponatremia, improving #4. Acute exacerbation of COPD #5. Stage IV COPD,pulmonary emphysema, chronic hypoxemic respiratory failure, underlying FEV1 of 0.45 L or 22% of predicted, with diffusion capacity of 25% of predicted. Patient is reluctant to wear home O2, although she qualifies for it. ALso reluctant to use any inhalers or nebulized treatments #6. Hypothyroidism #7. Former smoker #8. History of peripheral arterial occlusive disease #9. Chronic exertional dyspnea, and cough #10. Tachycardia Plan: The patient was seen and evaluated by Dr. Andres. She is improved today as compared to yesterday. Not quite back to her baseline. We'll continue with current treatment plan. Increase her activity as tolerated. We'll continue to follow. I, the cosigning physician, performed a history & physical examination of the patient. Lungs sounds with crackles in the bilateral posterior bases. Maintaining good O2 saturations in the 90s on 2 L/m per nasal cannula. I discussed the assessment and plan of care with my nurse practitioner, Lyndsay Yi. I attest to the above note as dictated by her.
[2018-08-29] MEDS: LORazepam 2 MG/ML INJ IV PRN (16:44)
[2018-08-29 17:08] LABS: Glucose,Whole Blood 142 mg/dL (75-99)
[2018-08-29] MEDS: NAPROXEN 250 MG TAB PO PRN (18:53)
[2018-08-29] MEDS: SODIUM CHLORIDE 0.9% 1,000 ML IV SCH (20:29)
[2018-08-29 20:37] LABS: Glucose,Whole Blood 143 mg/dL (75-99)
--- NOTE | 2018-08-29 22:08 | PN ---
PROGRESS NOTE DATE OF SERVICE: 08/29/2018 This 72-year-old woman was admitted with COPD, acute exacerbation, as well as bibasilar pneumonia with early sepsis. She is being closely monitored. Patient had elevated lactic acid, present on admission. Patient had significant anxiety, also. A 2D echo with Doppler was done today which showed an ejection fraction around 55% to 60%; otherwise moderate mitral annular calcification and minimal valvular abnormalities. Dr. Andres is following the patient closely. Patient is on broad-spectrum IV antibiotics. Past medical history reviewed. REVIEW OF SYSTEMS: CARDIOVASCULAR SYSTEM: No angina, palpitations. RESPIRATORY SYSTEM: As mentioned earlier. GI: No nausea, vomiting. : No dysuria or retention. NERVOUS SYSTEM: No numbness, weakness. CURRENT MEDICATIONS: Reviewed. They include: 1. [place] 5 mg q.6 p.r.n. 2. DuoNeb q.i.d. and p.r.n. 3. Zithromax 500 mg daily. 4. Pulmicort 1 mg b.i.d. 5. Rocephin 1 gram daily. 6. Lovenox 40 mg subcutaneously daily. 7. Ativan 0.5 mg q.8. 8. Cozaar 25 mg p.o. daily. 9. Solu-Medrol 60 IV q.6. 10.Naprosyn 250 mg p.o. b.i.d. 11.Protonix 40 mg daily. PHYSICAL EXAMINATION: Patient is alert, oriented x3. Pulse 123, blood pressure 143/80, respiration 15, temperature 97.4, pulse ox 98% on 2 L. HEENT: Conjunctivae normal. NECK: No jugular venous distention. CARDIOVASCULAR SYSTEM: S1, S2 muffled. RESPIRATORY SYSTEM: Breath sounds diminished at the bases. A few scattered rhonchi and crackles. Expiratory wheezing also present. ABDOMEN: Soft, non-tender. LEGS: No edema. No swelling. NERVOUS SYSTEM: No focal deficit. LABS: WBC 19. Accu-Cheks noted. Cultures are pending at this time. Two-D echo noted. ASSESSMENT: 1. Chronic obstructive pulmonary disease, acute exacerbation, with acute bibasilar pneumonia, possibly gram-negative, possibly community-acquired, with early sepsis, present on admission. 2. Elevated lactic acid. 3. Sinus tachycardia. 4. Anxiety. 5. Hyponatremia. 6. History of hypothyroidism. 7. History of colitis. 8. History of cholecystectomy. 9. History of hysterectomy. RECOMMENDATIONS AND DISCUSSION: I recommend to continue current medication, continue symptomatic treatment. Continue with the bronchodilators. Continue with steroids. Continue with antibiotics. Continue with Ativan. TSH is normal. NT proBNP is elevated at 800. We will continue to monitor. The prognosis is guarded because of multiple complex medical issues. Further recommendations to follow. A repeat chest x-ray done yesterday which was personally reviewed by me showed evidence of pleural effusion and some increased bronchovascular congestion. I would recommend stopping the IV fluids and administer a small dose of Lasix. Further recommendations to follow. MMODL / IJN: [id number] /
[2018-08-30] MEDS: methylPREDNISolone SOD SUCCI 125 MG/2 ML VIAL IV SCH ×5 (00:35→23:58)
[2018-08-30] MEDS: AZITHROMYCIN 500 MG TAB PO SCH ×2 (00:35→23:58)
[2018-08-30 07:43] LABS: Glucose,Whole Blood 120 mg/dL (75-99)
[2018-08-30] MEDS ORDERED: FUROSEMIDE 10 MG/ML 2 ML VIAL IV ONE (08:00)
[2018-08-30] MEDS: IPRATROPIUM-ALBUTEROL 3 ML NEB INHALATION SCH ×4 (09:08→21:11)
[2018-08-30] MEDS: BUDESONIDE 1 MG/2 ML NEBU INHALATION SCH ×2 (09:08→21:10)
[2018-08-30 09:29] LABS: Basophils % (A) 0 %; Eosinophils # (A) 0.1 k/uL (0-0.7); Eosinophils % (A) 0 %; HCT 41.8 % (34.0-46.0); HGB 13.4 gm/dL (11.4-16.0); Lymphocytes # (A) 0.6 k/uL (1.0-4.8); Lymphocytes % (A) 2 %; MCH 30.4 pg (25.0-35.0); MCV 94.9 fL (80.0-100.0); Mean Platelet Volume 8.1; Monocytes # (A) 0.5 k/uL (0-1.0); Monocytes % (A) 2 %; Neutrophils % (A) 95 %; Platelet Count 366 k/uL (150-450); WBC 27.3 k/uL (3.8-10.6)
[2018-08-30 09:48] LABS: Anion Gap 9 mmol/L; Blood Urea Nitrogen 19 mg/dL (7-17); Calcium 9.2 mg/dL (8.4-10.2); Carbon Dioxide 25 mmol/L (22-30); Chloride 105 mmol/L (98-107); Glucose 178 mg/dL (74-99); Potassium 4.4 mmol/L (3.5-5.1); Sodium 139 mmol/L (137-145)
[2018-08-30] MEDS: INSULIN ASPART 100 UNIT/ML 1 ML 10 ML VIAL SQ SCH ×4 (10:32→20:55)
[2018-08-30] MEDS: PANTOPRAZOLE 40 MG TABLET PO SCH (10:41)
[2018-08-30] MEDS: NAPROXEN 250 MG TAB PO PRN ×2 (10:41→20:54)
[2018-08-30] MEDS: LOSARTAN 25 MG TAB PO SCH (10:42)
[2018-08-30] MEDS: ENOXAPARIN 40 MG/0.4 ML SYRINGE SQ SCH (10:42)
[2018-08-30 12:09] LABS: Glucose,Whole Blood 154 mg/dL (75-99)
--- NOTE | 2018-08-30 13:54 | P.PN ---
Subjective Progress Note Date: 08/30/18 Principal diagnosis: Acute on chronic respiratory failure secondary to basilar infiltrate small effusions, suspect mainly acquired pneumonia. This is a 72-year-old white female patient recently diagnosed with COPD, presented to the emergency department on 08/27/2018 at 1800 for evaluation of worsening shortness of breath, cough, chest congestion, elevated blood pressure. Patient presented to the urgent care and transferred to the emergency department in view of hypoxemia, tachycardia and hypertension. Patient had a recent upper respiratory infection. Chest x-ray showed COPD, coarsening of the interstitial markings, bilateral patchy lower lobe pneumonia, small pleural effusions. Lab work was negative for any leukocytosis, WBC was 10.2, hemoglobin is 14.2, sodium was 133, potassium is 3.7, chloride was 96, bun was 9, creatinine was 0.41, asthma lactic acid was 2.9, improved with fluid boluses, down to 1, troponin was negative 1, influenza was negative. Follow- up chest x-ray today shows bilateral lower lobe infiltrate and small effusion, prominent interstitium, suggesting fluid overload. Patient has been afebrile, but diaphoretic, she is tachycardic, with a heart rate up to 120 BPM, pressure is 162/99, pulse ox on 3 L per nasal cannula is 96%, she is lethargic, easily arousable, fatigued and weak. She was started on a combination of Rocephin and Zithromax, belies bronchodilators, IV steroids. Echo with Doppler has been ordered, cardiology is following. Of note patient's FEV1 on 01/14/2018 was 0.45 L, or 22% of predicted, and low DLCO of 25% predicted, consistent with stage IV COPD, emphysema. Patient did have a 6 minute walk test in the office, noted to be hypoxemic, with a pulse ox of 86% at ambulation, she qualified for home oxygen, but has been reluctant to use it. She was also reluctant to use since inhalers and nebulized treatments, currently just on Xopenex HFA 45 mcg 2 puffs every 6 hours as needed. Does not have a primary care provider, was actually referred to Dr. Andres by the urgent care clinic where she would go with symptoms of recurrent cough, shortness of breath and wheezing. The patient is seen again today 08/29/2018 in follow-up on the regular medical floor. She is awake and alert in no acute distress. She is breathing better today as compared to yesterday. Not quite back to her baseline. She is maintaining O2 saturations in the 90s on 2 L/m per nasal cannula. She's been afebrile. Slightly tachycardic. Blood culture reveals no growth to date. Urine culture pending. White count 19.0. Hemoglobin 12.4. Creatinine 0.40. She remains on ceftriaxone and azithromycin. Patient is seen today 08/30/2018 in follow-up on the regular medical floor. She is currently resting comfortably in bed. She remains quite weak and fatigued. Still dyspneic on minimal exertion. Maintaining O2 saturations in the mid 90s on 2 L/m per nasal cannula. She remains afebrile. Tachycardic. Blood and urine cultures reveal no growth. White count 27.3. Hemoglobin 13.4. Creatinine 0.47. Objective - Vital Signs Vital signs: Vital Signs Temp 97.7 F 08/30/18 10:44 Pulse 118 H 08/30/18 12:08 Resp 16 08/30/18 10:44 BP 157/82 08/30/18 10:44 Pulse Ox 95 08/30/18 10:44 Intake & Output 08/29/18 08/30/18 08/30/18 18:59 06:59 18:59 Intake Total 1000 Balance 1000 Weight 45.359 kg Intake: Intake, IV Titration 300 Amount Sodium Chloride 0.9% 1, 300 000 ml @ 100 mls/hr IV . Q10H [facility] Rx#:[id number] Oral 700 Other: Voiding Method Toilet Diaper # Voids 3 1 - Exam GENERAL EXAM: Awake, alert, 72-year-old frail looking elderly female, 2 L per nasal cannula. HEAD: Normocephalic/atraumatic. EYES: Normal reaction of pupils, equal size. Conjunctiva pink, sclera white. NOSE: Clear with pink turbinates. THROAT: No erythema or exudates. NECK: No masses, no JVD, no thyroid enlargement, no adenopathy. CHEST: No chest wall deformity. Symmetrical expansion. LUNGS: Diffuse rhonchi, rales, wheezes CVS: Regular rate and rhythm, normal S1 and S2, no gallops, no murmurs, no rubs. Tachycardic, with a rate up to 127 BPM ABDOMEN: Soft, nontender. No hepatosplenomegaly, normal bowel sounds, no guarding or rigidity. EXTREMITIES: No clubbing, no edema, no cyanosis, 2+ pulses and upper and lower extremities. MUSCULOSKELETAL: Muscle strength and tone normal. SPINE: No scoliosis or deformity SKIN: No rashes CENTRAL NERVOUS SYSTEM: Somnolent and oriented -3. No focal deficits, tone is normal in all 4 extremities. - Labs CBC & Chem 7: 08/30/18 08:37 08/30/18 08:37 Labs: Abnormal Lab Results - Last 24 Hours (Table) 08/29/18 08/29/18 08/30/18 Range/Units 16:56 20:24 07:16 WBC (3.8-10.6) k/uL Neutrophils # (1.3-7.7) k/uL Lymphocytes # (1.0-4.8) k/uL BUN (7-17) mg/dL Creatinine (0.52-1.04) mg/dL Glucose (74-99) mg/dL POC Glucose (mg/dL) 142 H 143 H 120 H (75-99) mg/dL 08/30/18 08/30/18 08/30/18 Range/Units 08:37 08:37 11:46 WBC 27.3 H (3.8-10.6) k/uL Neutrophils # 26.0 H (1.3-7.7) k/uL Lymphocytes # 0.6 L (1.0-4.8) k/uL BUN 19 H (7-17) mg/dL Creatinine 0.47 L (0.52-1.04) mg/dL Glucose 178 H (74-99) mg/dL POC Glucose (mg/dL) 154 H (75-99) mg/dL Microbiology - Last 24 Hours (Table) 08/28/18 16:07 Urine Culture - Final Urine,Voided 08/28/18 00:20 Blood Culture - Preliminary Blood No Growth after 48 hours Assessment and Plan Assessment: Assessment: #1. Acute on chronic respiratory failure secondary to bibasilar infiltrates small effusions, likely related to community-acquired pneumonia #2. Lactic acidosis, improved with IV boluses #3. Mild hyponatremia, improving #4. Acute exacerbation of COPD #5. Stage IV COPD,pulmonary emphysema, chronic hypoxemic respiratory failure, underlying FEV1 of 0.45 L or 22% of predicted, with diffusion capacity of 25% of predicted. Patient is reluctant to wear home O2, although she qualifies for it. ALso reluctant to use any inhalers or nebulized treatments #6. Hypothyroidism #7. Former smoker #8. History of peripheral arterial occlusive disease #9. Chronic exertional dyspnea, and cough #10. Tachycardia Plan: The patient was seen and evaluated by Dr. Andres. Not quite back to her baseline. We'll continue with current treatment plan. Repeat a chest x-ray in the a.m. Increase her activity as tolerated. We'll continue to follow. I, the cosigning physician, performed a history & physical examination of the patient. Lungs sounds with crackles in the bilateral posterior bases. Maintaining good O2 saturations in the 90s on 2 L/m per nasal cannula. I discussed the assessment and plan of care with my nurse practitioner, Lyndsay Yi. I attest to the above note as dictated by her.
[2018-08-30 17:16] LABS: Glucose,Whole Blood 125 mg/dL (75-99)
[2018-08-30 19:43] LABS: Glucose,Whole Blood 167 mg/dL (75-99)
[2018-08-31] MEDS: methylPREDNISolone SOD SUCCI 125 MG/2 ML VIAL IV SCH ×3 (05:31→18:26)
[2018-08-31 07:13] LABS: Glucose,Whole Blood 116 mg/dL (75-99)
--- NOTE | 2018-08-31 07:21 | XR ---
EXAMINATION TYPE: XR chest 1V portable DATE OF EXAM: 08/31/2018 HISTORY: Pneumonia. REFERENCE: Previous study dated 08/28/2018. FINDINGS: The lungs are overinflated. The heart is not enlarged. There is bibasilar infiltrates. Ther e are small, bilateral effusions. IMPRESSION: 1. COPD. 2. WORSENING BIBASILAR INFILTRATES. 3. SMALL, BILATERAL EFFUSIONS.
--- NOTE | 2018-08-31 08:19 | PN ---
PROGRESS NOTE DATE OF SERVICE: 08/30/2018 This 72-year-old woman who was admitted with COPD exacerbation as well as bibasilar pneumonia is being closely monitored. No chest pain. No palpitations. No fever. The patient is complaining of weakness. EXAM: Alert and oriented x3, pulse 123, blood pressure 133/70, respiration 16, temperature 98 degrees, pulse ox 97% on 2 L. HEENT: Conjunctivae normal. Oral mucosa moist. NECK: No jugular venous distention. No lymph node enlargement. CARDIOVASCULAR: S1, S2. RESPIRATORY: Diminished breath sounds muffled at the bases. A few scattered rhonchi and crackles. ABDOMEN: Soft, nontender. LEGS: No swelling. NERVOUS SYSTEM: No focal deficits. LABS: WBC is 7.3, sodium 139, potassium 4.4. ASSESSMENT: 1. Chronic obstructive pulmonary disease exacerbation with acute bibasilar pneumonia possibly gram-negative, possibly community-acquired with early sepsis present on admission. 2. Elevated lactic acid. 3. Sinus tachycardia. 4. Anxiety. 5. Hyponatremia. 6. Weakness and gait dysfunction. 7. Hypothyroidism. 8. History of colitis. 9. History of cholecystectomy. 10.History of hysterectomy. 11.Mild to moderate protein calorie malnutrition with BMI of 17.2. RECOMMENDATIONS AND DISCUSSION: Recommend to continue current medical management. Continue bronchodilators. Closely follow with Pulmonary. Otherwise, I will taper the steroids. Further recommendations to follow. MMODL / IJN: [id number] /
[2018-08-31] MEDS: BUDESONIDE 1 MG/2 ML NEBU INHALATION SCH ×2 (08:55→21:28)
[2018-08-31] MEDS: IPRATROPIUM-ALBUTEROL 3 ML NEB INHALATION SCH ×4 (08:55→21:28)
[2018-08-31] MEDS: INSULIN ASPART 100 UNIT/ML 1 ML 10 ML VIAL SQ SCH ×4 (10:20→22:31)
[2018-08-31] MEDS: ENOXAPARIN 40 MG/0.4 ML SYRINGE SQ SCH (10:25)
[2018-08-31] MEDS: PANTOPRAZOLE 40 MG TABLET PO SCH (10:26)
[2018-08-31] MEDS: MULTIVITAMINS, THERA 1 EACH TAB PO SCH (10:27)
[2018-08-31] MEDS: THIAMINE 100 MG TAB PO SCH (10:27)
[2018-08-31] MEDS: LOSARTAN 25 MG TAB PO SCH (10:27)
[2018-08-31] MEDS: FOLIC ACID 1 MG TAB PO SCH (10:27)
[2018-08-31 11:04] LABS: Basophils % (A) 0 %; Eosinophils # (A) 0.1 k/uL (0-0.7); Eosinophils % (A) 0 %; HCT 42.5 % (34.0-46.0); HGB 13.9 gm/dL (11.4-16.0); Lymphocytes # (A) 0.5 k/uL (1.0-4.8); Lymphocytes % (A) 2 %; MCH 30.7 pg (25.0-35.0); MCHC 32.7 g/dL (31.0-37.0); Mean Platelet Volume 7.9; Monocytes # (A) 0.5 k/uL (0-1.0); Monocytes % (A) 2 %; Neutrophils # (A) 20.7 k/uL (1.3-7.7); Neutrophils % (A) 95 %; Platelet Count 378 k/uL (150-450); RBC 4.52 m/uL (3.80-5.40); WBC 21.9 k/uL (3.8-10.6)
[2018-08-31 11:13] LABS: Anion Gap 7 mmol/L; Blood Urea Nitrogen 16 mg/dL (7-17); Carbon Dioxide 28 mmol/L (22-30); Chloride 101 mmol/L (98-107); Glucose 166 mg/dL (74-99); Potassium 3.9 mmol/L (3.5-5.1); Sodium 136 mmol/L (137-145)
[2018-08-31 11:39] LABS: Glucose,Whole Blood 143 mg/dL (75-99)
--- NOTE | 2018-08-31 16:45 | P.PN ---
Subjective Progress Note Date: 08/31/18 Principal diagnosis: Acute on chronic hypoxic respiratory failure secondary to COPD, exacerbation and community-acquired pneumonia. This is a 72-year-old white female patient recently diagnosed with COPD, presented to the emergency department on 08/27/2018 at 1800 for evaluation of worsening shortness of breath, cough, chest congestion, elevated blood pressure. Patient presented to the urgent care and transferred to the emergency department in view of hypoxemia, tachycardia and hypertension. Patient had a recent upper respiratory infection. Chest x-ray showed COPD, coarsening of the interstitial markings, bilateral patchy lower lobe pneumonia, small pleural effusions. Lab work was negative for any leukocytosis, WBC was 10.2, hemoglobin is 14.2, sodium was 133, potassium is 3.7, chloride was 96, bun was 9, creatinine was 0.41, asthma lactic acid was 2.9, improved with fluid boluses, down to 1, troponin was negative 1, influenza was negative. Follow- up chest x-ray today shows bilateral lower lobe infiltrate and small effusion, prominent interstitium, suggesting fluid overload. Patient has been afebrile, but diaphoretic, she is tachycardic, with a heart rate up to 120 BPM, pressure is 162/99, pulse ox on 3 L per nasal cannula is 96%, she is lethargic, easily arousable, fatigued and weak. She was started on a combination of Rocephin and Zithromax, belies bronchodilators, IV steroids. Echo with Doppler has been ordered, cardiology is following. Of note patient's FEV1 on 01/14/2018 was 0.45 L, or 22% of predicted, and low DLCO of 25% predicted, consistent with stage IV COPD, emphysema. Patient did have a 6 minute walk test in the office, noted to be hypoxemic, with a pulse ox of 86% at ambulation, she qualified for home oxygen, but has been reluctant to use it. She was also reluctant to use since inhalers and nebulized treatments, currently just on Xopenex HFA 45 mcg 2 puffs every 6 hours as needed. Does not have a primary care provider, was actually referred to Dr. Andres by the urgent care clinic where she would go with symptoms of recurrent cough, shortness of breath and wheezing. The patient is seen again today 08/29/2018 in follow-up on the regular medical floor. She is awake and alert in no acute distress. She is breathing better today as compared to yesterday. Not quite back to her baseline. She is maintaining O2 saturations in the 90s on 2 L/m per nasal cannula. She's been afebrile. Slightly tachycardic. Blood culture reveals no growth to date. Urine culture pending. White count 19.0. Hemoglobin 12.4. Creatinine 0.40. She remains on ceftriaxone and azithromycin. Patient is seen today 08/30/2018 in follow-up on the regular medical floor. She is currently resting comfortably in bed. She remains quite weak and fatigued. Still dyspneic on minimal exertion. Maintaining O2 saturations in the mid 90s on 2 L/m per nasal cannula. She remains afebrile. Tachycardic. Blood and urine cultures reveal no growth. White count 27.3. Hemoglobin 13.4. Creatinine 0.47. Reevaluated today on 08/31/2018, remains on the medical floor, patient remains short of breath, continues to cough and wheeze, remained generally weak, and fatigued. Chest x-ray is showing probably slight worsening of her infiltrates bilaterally, and now I am noticing small bilateral pleural effusions. Hence I recommended a trial of diuresis, and a follow-up chest x-ray in a.m. Clearly the patient is not quite ready for discharge planning at this point. She may even eventually require bronchoscopy. Her WBC count is showing right is 21.9, it was 10.2 on admission, again chest x-ray is worse. Electrolytes and renal profile are normal. And I will broaden the spectrum of antibiotics today. Objective - Vital Signs Vital signs: Vital Signs Temp 98.5 F 08/31/18 14:14 Pulse 92 08/31/18 16:35 Resp 18 08/31/18 07:00 BP 157/84 08/31/18 14:14 Pulse Ox 95 08/31/18 14:14 Intake & Output 08/30/18 08/31/18 08/31/18 18:59 06:59 18:59 Intake Total 240 740 480 Balance 240 740 480 Intake: Intake, IV Titration 50 Amount cefTRIAXone 1,000 mg In 50 Sodium Chloride 0.9% 50 ml @ 100 mls/hr IVPB Q24H [facility] Rx#:[id number] Oral 240 690 480 Other: Voiding Method Toilet Diaper # Voids 2 1 # Bowel Movements 1 - Exam GENERAL EXAM: Awake, alert, 72-year-old frail looking elderly female, 2 L per nasal cannula. HEAD: Normocephalic/atraumatic. EYES: Normal reaction of pupils, equal size. Conjunctiva pink, sclera white. NOSE: Clear with pink turbinates. THROAT: No erythema or exudates. NECK: No masses, no JVD, no thyroid enlargement, no adenopathy. CHEST: No chest wall deformity. Symmetrical expansion. LUNGS: Diffuse rhonchi, rales, wheezes CVS: Regular rate and rhythm, normal S1 and S2, no gallops, no murmurs, no rubs. Tachycardic, with a rate up to 127 BPM ABDOMEN: Soft, nontender. No hepatosplenomegaly, normal bowel sounds, no guarding or rigidity. EXTREMITIES: No clubbing, no edema, no cyanosis, 2+ pulses and upper and lower extremities. MUSCULOSKELETAL: Muscle strength and tone normal. SPINE: No scoliosis or deformity SKIN: No rashes CENTRAL NERVOUS SYSTEM: Somnolent and oriented -3. No focal deficits, tone is normal in all 4 extremities. - Labs CBC & Chem 7: 08/31/18 10:13 08/31/18 10:13 Labs: Abnormal Lab Results - Last 24 Hours (Table) 08/30/18 08/30/18 08/31/18 Range/Units 17:05 19:38 07:11 WBC (3.8-10.6) k/uL Neutrophils # (1.3-7.7) k/uL Lymphocytes # (1.0-4.8) k/uL Sodium (137-145) mmol/L Glucose (74-99) mg/dL POC Glucose (mg/dL) 125 H 167 H 116 H (75-99) mg/dL 08/31/18 08/31/18 08/31/18 Range/Units 10:13 10:13 11:28 WBC 21.9 H (3.8-10.6) k/uL Neutrophils # 20.7 H (1.3-7.7) k/uL Lymphocytes # 0.5 L (1.0-4.8) k/uL Sodium 136 L (137-145) mmol/L Glucose 166 H (74-99) mg/dL POC Glucose (mg/dL) 143 H (75-99) mg/dL Microbiology - Last 24 Hours (Table) 08/28/18 00:20 Blood Culture - Preliminary Blood No Growth after 72 hours Assessment and Plan Assessment: #1. Acute on chronic respiratory failure secondary to bibasilar infiltrates small effusions, likely related to community-acquired pneumonia #2. Lactic acidosis, improved with IV boluses #3. Mild hyponatremia, improving #4. Acute exacerbation of COPD #5. Stage IV COPD,pulmonary emphysema, chronic hypoxemic respiratory failure, underlying FEV1 of 0.45 L or 22% of predicted, with diffusion capacity of 25% of predicted. Patient is reluctant to wear home O2, although she qualifies for it. ALso reluctant to use any inhalers or nebulized treatments #6. Hypothyroidism #7. Former smoker #8. History of peripheral arterial occlusive disease #9. Chronic exertional dyspnea, and cough #10. Tachycardia Recommendation: Still concerned that the patient is not showing much improvement , hence I will recommend a trial of diuresis, repeat chest x-ray in a.m., and considering her leukocytosis, patient may have to be bronchoscoped if she doesn' t improve much in the next couple of days. Patient remains on Rocephin and Zithromax, I have requested sputum to be sent for cultures, Patient is ALLERGIC to penicillin. I will go ahead and switch Zithromax to Levaquin. Continue Rocephin and again may have to consider bronchoscopy on this patient depending on the follow-up chest x-ray in a.m., and depending on the sputum cultures which I have requested. Time with Patient: Less than 30
[2018-08-31] MEDS: FUROSEMIDE 20 MG TAB PO SCH (16:58)
[2018-08-31 17:03] LABS: Glucose,Whole Blood 117 mg/dL (75-99)
[2018-08-31] MEDS: CEFEPIME 2 GM in SODIUM CHLORIDE 0.9% 50 ML IVPB SCH (18:22)
[2018-08-31] MEDS: LEVOFLOXACIN 750MG-D5W PMX 750 MG in DEXTROSE/WATER 1 150ML.BAG IVPB SCH (19:04)
[2018-08-31 19:53] LABS: Glucose,Whole Blood 159 mg/dL (75-99)
--- NOTE | 2018-08-31 20:28 | CONS ---
CONSULTATION DATE OF SERVICE: 08/31/2018. REASON FOR CONSULTATION: Pneumonia, no improvement. HISTORY OF PRESENT ILLNESS: The patient is a 72-year-old female who presented to the [facility] ER on 08/27/2018 with chief complaints of increasing shortness of breath and cough along with congestion. Her symptoms had been going on for a few days before she presented to the hospital. The patient denies having any URI symptoms. The patient cough is moderate in intensity and is productive of some haro sputum initially, which she did mention is getting more clear now with no hemoptysis. Denies any chest pain. No nausea, vomiting. No choking on food. No abdominal pain or any diarrhea. The patient was evaluated by the ER physician. On arrival to the ER, the patient did not have any high-grade fever. The patient did have a normal white count of 10.2, however, her white count now showing upward trend, was up to 19,000 on 08/29, 27,000 yesterday and is 21.9 1000 today. The patient has been treated with Rocephin with Levaquin added today. The patient has been on IV Solu-Medrol as well. The patient did have blood culture that has been negative. No sputum collected infection. Infectious Disease was consulted today for worsening leukocytosis and concern for possible worsening pneumonia and a chest x-ray done this morning shows worsening bibasilar infiltrate. REVIEW OF SYSTEMS: Positive for weakness. Denies high-grade fever. EYES: No complaint. ENT: No complaint. Respiratory as per HPI. Cardiovascular: No complaint. GENITOURINARY: No complaint. GASTROINTESTINAL: No complaint. MUSCULOSKELETAL: No complaint. INTEGUMENTARY: No complaint. PSYCHOLOGICAL: No complaint. ENDOCRINE: No complaint. NEUROLOGIC no complaint. PAST MEDICAL HISTORY: COPD, hypothyroidism, history of colitis. PAST SURGICAL HISTORY: Cholecystectomy, hysterectomy, partial thyroidectomy. SOCIAL HISTORY: Remote history of smoking. No drinking or drug use. FAMILY HISTORY: Mother with history of hypertension. ALLERGIES: PENICILLIN. However, tolerated cephalosporins without any problem. ALSO ALLERGIC TO IODINE AND PEANUTS. MEDICATIONS: The patient is currently on: 1. Lasix. 2. NovoLog. 3. Levaquin. 4. Cozaar. 5. Solu-Medrol. 6. Theragran. 7. Naproxen. 8. Protonix. PHYSICAL EXAMINATION: Blood pressure 157/84 with a pulse of 79, temperature 98.5. She is 95% on 2 L nasal cannula. General description is an elderly female up in the bed in no distress. No tachypnea or accessory muscles of respiration use. HEENT: Shows no pallor or scleral icterus. Oral mucous membranes dry. No pharyngeal erythema or thrush. NECK: Trachea central. No thyromegaly. LUNGS: Unlabored breathing. Some coarse crackles at bases bilaterally. No wheeze. CARDIOVASCULAR: Heart S1, S2. Regular rate and rhythm. ABDOMEN: Soft, no tenderness. No guarding. EXTREMITIES: No edema of the feet. SKIN EXAMINATION: No rash or mass palpable. NEUROLOGICAL: Patient is awake, alert, oriented x3. Mood and affect normal. LABS: Hemoglobin 13.1, hematocrit 1.9, BUN of 16 and creatinine 0.5. Electrolytes have been normal. Blood culture negative. Sputum collected today. DIAGNOSTIC IMPRESSION AND PLAN: 1. Patient admitted to the hospital with increasing shortness of breath. She also has a cough productive of some haro sputum, likely representing a component of pneumonia with question of possible community acquired. However, the patient also seemed to have responded very well to the antibiotic regime of Rocephin and Zithromax with Levaquin added yesterday. Some of the component could be related to the fluid overload for which the patient was started on Lasix. 2. The patient did have a history of PENICILLIN allergy with anaphylaxis, however, had tolerated Rocephin without any problem. PLAN: 1. Discontinue Rocephin. 2. We will add cefepime 2 g q.12h. Continue Levaquin. 3. Sputum for Gram stain culture and sensitivity. 4. We will follow up on clinical condition and culture to further adjust medication if needed. Thank you for this consultation. We will follow this patient with you. MMODL / IJN: [id number] /
[2018-08-31] MEDS: NAPROXEN 250 MG TAB PO PRN (21:11)
[2018-09-01] MEDS: methylPREDNISolone SOD SUCCI 125 MG/2 ML VIAL IV SCH ×5 (00:01→23:14)
[2018-09-01] MEDS: CEFEPIME 2 GM in SODIUM CHLORIDE 0.9% 50 ML IVPB SCH ×3 (05:23→18:30)
--- NOTE | 2018-09-01 05:25 | PN ---
PROGRESS NOTE DATE OF SERVICE: 08/31/2018 This 72-year-old woman was admitted with COPD exacerbation acute exacerbation, bibasilar pneumonia, is being closely monitored. No chest pain. No palpitations. No fever. The chest x-ray showed significant pneumonia as well. Infectious Disease has been consulted. The patient has got multiple drug allergies. PHYSICAL EXAMINATION: On exam, alert and oriented x3. Pulse is 121, blood pressure 144/80, respiration 18, temperature 98.1, pulse ox 96% on room air. HEENT: Conjunctivae normal. NECK: No jugular venous distention. CARDIOVASCULAR: S1, S2 muffled. RESPIRATORY: Breath sounds diminished at the bases. A few scattered rhonchi and crackles. ABDOMEN: Soft, nontender. LEGS: No edema, no swelling. NERVOUS SYSTEM: No focal deficits. LABS: WBC 21.9. Accu-Cheks noted. ASSESSMENT: 1. Chronic obstructive pulmonary disease acute exacerbation, acute bibasilar pneumonia possibly gram-negative, possible community-acquired with early sepsis present on admission with slow improvement. 2. Elevated lactic acid. 3. Sinus tachycardia. 4. Anxiety. 5. Hyponatremia. 6. Weakness and gait dysfunction. 7. Hypothyroidism. 8. History of colitis. 9. History of cholecystectomy. 10.History of hysterectomy. 11.Mild to moderate protein calorie malnutrition with BMI of 17.2. RECOMMENDATIONS AND DISCUSSION: Continue to continue the current medications. Continue symptomatic treatment. Chest x- ray showed some worsening. Recommend ID to evaluate the patient. Will follow the patient closely with Pulmonology. Change antibiotic to cefepime per ID. Guarded prognosis because of multiple complex medical issues. Further recommendations to follow. MMODL / IJN: [id number] /
[2018-09-01 07:31] LABS: Glucose,Whole Blood 104 mg/dL (75-99)
[2018-09-01] MEDS: INSULIN ASPART 100 UNIT/ML 1 ML 10 ML VIAL SQ SCH ×4 (07:35→22:35)
[2018-09-01 07:57] LABS: Basophils % (A) 0 %; Eosinophils % (A) 0 %; HCT 43.4 % (34.0-46.0); HGB 13.2 gm/dL (11.4-16.0); Lymphocytes # (A) 0.5 k/uL (1.0-4.8); Lymphocytes % (A) 3 %; MCH 28.7 pg (25.0-35.0); MCHC 30.4 g/dL (31.0-37.0); MCV 94.4 fL (80.0-100.0); Mean Platelet Volume 6.9; Monocytes # (A) 0.4 k/uL (0-1.0); Monocytes % (A) 2 %; Neutrophils # (A) 17.1 k/uL (1.3-7.7); Neutrophils % (A) 94 %; Platelet Count 402 k/uL (150-450); WBC 18.1 k/uL (3.8-10.6)
[2018-09-01 08:15] LABS: Anion Gap 5 mmol/L; Blood Urea Nitrogen 14 mg/dL (7-17); Calcium 8.7 mg/dL (8.4-10.2); Carbon Dioxide 30 mmol/L (22-30); Chloride 102 mmol/L (98-107); Glucose 105 mg/dL (74-99); Potassium 3.9 mmol/L (3.5-5.1); Sodium 137 mmol/L (137-145)
--- NOTE | 2018-09-01 08:15 | XR ---
EXAMINATION TYPE: XR chest 1V portable DATE OF EXAM: 09/01/2018 COMPARISON: Prior chest x-ray 08/31/2018 HISTORY: Pneumonia TECHNIQUE: Single frontal view of the chest is obtained. FINDINGS: Findings are similar to prior exam. No evident pneumothorax. There are prominent lung volu mes. Heart is small. There is blunting of the costophrenic angles, hemidiaphragm is obscured on the l eft. Pulmonary vascularity and azul not significantly changed. Patient is rotated. There are overlyin g cardiac leads. Aorta is dense. IMPRESSION: Findings are similar to prior exam. Correlate to exclude congestive heart failure in a p atient with pre-existing COPD. Pneumonia not excluded.
[2018-09-01] MEDS: IPRATROPIUM-ALBUTEROL 3 ML NEB INHALATION SCH ×4 (08:24→21:08)
[2018-09-01] MEDS: BUDESONIDE 1 MG/2 ML NEBU INHALATION SCH ×2 (08:24→21:08)
[2018-09-01] MEDS: ENOXAPARIN 40 MG/0.4 ML SYRINGE SQ SCH (09:10)
[2018-09-01] MEDS: LOSARTAN 25 MG TAB PO SCH (09:11)
[2018-09-01] MEDS: FUROSEMIDE 20 MG TAB PO SCH ×2 (09:11→16:37)
[2018-09-01] MEDS: PANTOPRAZOLE 40 MG TABLET PO SCH (09:11)
[2018-09-01 12:05] LABS: Glucose,Whole Blood 128 mg/dL (75-99)
[2018-09-01] MEDS: MULTIVITAMINS, THERA 1 EACH TAB PO SCH (12:30)
[2018-09-01] MEDS: THIAMINE 100 MG TAB PO SCH (12:30)
[2018-09-01] MEDS: FOLIC ACID 1 MG TAB PO SCH (12:30)
--- NOTE | 2018-09-01 16:13 | PN ---
PROGRESS NOTE This is a 72-year-old female with a history of acute on chronic respiratory failure secondary to community-acquired pneumonia. She has lactic acidemia, improved with IV fluid administration, mild hyponatremia, COPD exacerbation, severe stage IV COPD with an FEV1 that is 22% predicted, hypothyroidism, previous heavy tobacco use, peripheral artery occlusive disease, and tachycardia. The patient is improved. She is sitting up in bed. She is eating her lunch. The patient is much less short of breath. She still has a cough, chest congestion. Producing some phlegm. Not quite ready for discharge yet. Current vital signs are reviewed. Her temperature is 98.3. Heart rate is 90, respiratory rate 15, blood pressure 160/91, mean 114. Room air saturation 90%, 2 L saturation 93%. Appears in no acute distress. Sitting up bedside. Eating her lunch. HEENT examination is grossly unremarkable. Mucous membranes are moist. Neck is supple. Full range of motion. No adenopathy or thyromegaly. Neck veins are flat. Cardiovascular examination reveals distant heart sounds. S1, S2 normal. No distinct murmur. Lungs reveal coarse inspiratory and expiratory rhonchi and wheezes. Breath sounds are diminished. There is prolongation on forced maneuver. The patient wheezes and coughs on forced maneuver. Abdomen is soft. Bowel sounds are heard. Extremities are intact. No cyanosis, clubbing, or edema. Skin without rash. Neurologic examination is brief but nonfocal. The patient's chest x-ray today shows prominent lung volumes. Heart size is small. There is blunting of the costophrenic angles. The diaphragms bilaterally obscured. LAB DATA: Reviewed. White count 18.1, hemoglobin 13.2, hematocrit 43.4, platelet count is 402,000. Sodium, potassium chloride CO2 all normal. Anion gap 5, BUN and creatinine were 14 and 0.43. Microbiologic studies including blood, urine and sputum are all negative. MEDICATIONS ARE: Reviewed. She is on appropriate medications including Pulmicort, cefepime, Lovenox, folic acid, Lasix, Lopeno, insulin, DuoNeb, Levaquin, losartan, Solu-Medrol, multivitamins, Naprosyn, Protonix, and thiamine. ASSESSMENT: 1. Acute on chronic acute on chronic hypoxemic respiratory failure secondary to bilateral community-acquired pneumonia. 2. Chronic obstructive pulmonary disease exacerbation. 3. Lactic acidosis, improved with IV hydration. 4. Mild hyponatremia. 5. Chronic obstructive pulmonary disease exacerbation in a patient with stage IV chronic obstructive pulmonary disease, with an FEV1 that is 22% predicted. 6. Hypothyroidism. 7. Previous heavy tobacco use. 8. Peripheral artery disease. 9. Chronic tachycardia. PLAN: The patient is doing a bit better. Chest x-ray still shows some abnormalities. We will continue to follow. Microbiology is negative. Labs, x-rays and medications are all reviewed. Prognosis is guarded. We will continue to follow. MMODL / IJN: [id number] /
[2018-09-01 16:33] LABS: Glucose,Whole Blood 137 mg/dL (75-99)
[2018-09-01] MEDS: LEVOFLOXACIN 750MG-D5W PMX 750 MG in DEXTROSE/WATER 1 150ML.BAG IVPB SCH (16:37)
--- NOTE | 2018-09-01 18:55 | PN ---
PROGRESS NOTE for voice. DATE OF SERVICE: 09/01/2018 This 72 -year-old woman was admitted with COPD exacerbation as well as bibasilar pneumonia is being closely monitored. No chest pain. No palpitations. No fever. EXAM: Alert and oriented x3. Pulse is 131, blood pressure 140/58, respiration 17, temperature 97.2, pulse ox 98% on room air. HEENT: Conjunctivae normal. Neck is no jugular venous distention. CARDIOVASCULAR: S1, S2 muffled. RESPIRATION: Breath sounds diminished in the bases. Bilateral scattered rhonchi and crackles. Abdomen is soft, nontender. LEGS: Are no edema, no swelling. Central nervous system: No focal deficits. LABS: WBC 18.1, hemoglobin 13.2. ASSESSMENT: 1. Chronic obstructive pulmonary disease acute exacerbation with acute bibasilar pneumonia possibly gram-negative, possibly community-acquired with early sepsis present on admission with slow improvement. 2. Elevated lactic acid. 3. Sinus tachycardia. 4. Anxiety. 5. Hyponatremia. 6. Weakness and gait dysfunction. 7. Hypothyroidism. 8. History of colitis. 9. History of cholecystectomy. 10.History of hysterectomy. 11.Mild to moderate protein calorie malnutrition, BMI of 17.2. RECOMMENDATIONS AND DISCUSSION: I recommend to continue current medications, management and symptomatic treatment. Continue with broad-spectrum IV antibiotics. Closely follow. Continue with steroids. The patient is on Cefepime as well. Further recommendations to follow. MMODL / IJN: [id number] /
[2018-09-01 20:05] LABS: Glucose,Whole Blood 112 mg/dL (75-99)
[2018-09-01] MEDS: NAPROXEN 250 MG TAB PO PRN (23:14)
--- NOTE | 2018-09-01 23:32 | PN ---
PROGRESS NOTE DATE OF SERVICE: 09/01/2018 REASON FOR FOLLOWUP: Pneumonia. INTERVAL HISTORY: The patient is currently afebrile. She is breathing more comfortably. She continues to have a cough and is bringing up more sputum. No hemoptysis. No chest pain. No abdominal pain. No diarrhea. PHYSICAL EXAMINATION: Blood pressure 165/89 with a pulse of 90, temperature 97.9. She is 93% on room air. General description is an elderly female up in the bed in no distress. RESPIRATORY SYSTEM: Unlabored breathing with coarse breath sounds in the bases. No wheeze. HEART: S1, S2. Regular rate and rhythm. ABDOMEN: Soft. No tenderness. LABS: White count down to 18.1 with a BUN of 14, creatinine 0.43. Sputum culture is currently pending. DIAGNOSTIC IMPRESSION AND PLAN: Patient with bilateral pneumonia. Patient apparently did not have a good response to initial antibiotics Rocephin and Zithromax. Antibiotic has been switched over to cefepime and Levaquin; to continue while waiting for the sputum culture to finalize. White count has shown a downward trend. Continue with supportive care. MMODL / IJN: [id number] /
[2018-09-02] MEDS: CEFEPIME 2 GM in SODIUM CHLORIDE 0.9% 50 ML IVPB SCH ×2 (05:12→18:54)
[2018-09-02] MEDS: methylPREDNISolone SOD SUCCI 125 MG/2 ML VIAL IV SCH ×3 (05:12→18:10)
[2018-09-02 06:59] LABS: Glucose,Whole Blood 125 mg/dL (75-99)
[2018-09-02] MEDS: INSULIN ASPART 100 UNIT/ML 1 ML 10 ML VIAL SQ SCH ×4 (07:50→21:00)
[2018-09-02] MEDS: ENOXAPARIN 40 MG/0.4 ML SYRINGE SQ SCH (09:12)
[2018-09-02] MEDS: FUROSEMIDE 20 MG TAB PO SCH ×2 (09:12→16:45)
[2018-09-02] MEDS: PANTOPRAZOLE 40 MG TABLET PO SCH (09:12)
[2018-09-02] MEDS: LOSARTAN 25 MG TAB PO SCH (09:12)
[2018-09-02 09:27] LABS: Basophils % (A) 0 %; Eosinophils # (A) 0.1 k/uL (0-0.7); Eosinophils % (A) 1 %; HCT 41.2 % (34.0-46.0); HGB 13.6 gm/dL (11.4-16.0); Lymphocytes # (A) 0.5 k/uL (1.0-4.8); Lymphocytes % (A) 3 %; MCH 30.7 pg (25.0-35.0); MCV 92.9 fL (80.0-100.0); Mean Platelet Volume 7.2; Monocytes # (A) 0.4 k/uL (0-1.0); Monocytes % (A) 2 %; Neutrophils # (A) 14.8 k/uL (1.3-7.7); Neutrophils % (A) 94 %; Platelet Count 392 k/uL (150-450); RBC 4.43 m/uL (3.80-5.40); WBC 15.8 k/uL (3.8-10.6)
[2018-09-02 09:39] LABS: Anion Gap 5 mmol/L; Blood Urea Nitrogen 17 mg/dL (7-17); Calcium 8.8 mg/dL (8.4-10.2); Carbon Dioxide 32 mmol/L (22-30); Chloride 99 mmol/L (98-107); Glucose 140 mg/dL (74-99); Potassium 3.5 mmol/L (3.5-5.1); Sodium 136 mmol/L (137-145)
[2018-09-02] MEDS: IPRATROPIUM-ALBUTEROL 3 ML NEB INHALATION SCH ×4 (09:41→20:08)
[2018-09-02] MEDS: BUDESONIDE 1 MG/2 ML NEBU INHALATION SCH ×2 (09:41→20:08)
[2018-09-02 11:53] LABS: Glucose,Whole Blood 137 mg/dL (75-99)
[2018-09-02] MEDS ORDERED: METOPROLOL TARTRATE 25 MG TAB PO SCH (12:00)
[2018-09-02] MEDS: THIAMINE 100 MG TAB PO SCH (12:33)
[2018-09-02] MEDS: FOLIC ACID 1 MG TAB PO SCH (12:33)
[2018-09-02] MEDS: MULTIVITAMINS, THERA 1 EACH TAB PO SCH (12:33)
--- NOTE | 2018-09-02 16:31 | P.PN ---
Subjective Progress Note Date: 09/02/18 Principal diagnosis: Acute on chronic respiratory failure secondary to basilar infiltrate small effusions, suspect mainly acquired pneumonia. This is a 72-year-old white female patient recently diagnosed with COPD, presented to the emergency department on 08/27/2018 at 1800 for evaluation of worsening shortness of breath, cough, chest congestion, elevated blood pressure. Patient presented to the urgent care and transferred to the emergency department in view of hypoxemia, tachycardia and hypertension. Patient had a recent upper respiratory infection. Chest x-ray showed COPD, coarsening of the interstitial markings, bilateral patchy lower lobe pneumonia, small pleural effusions. Lab work was negative for any leukocytosis, WBC was 10.2, hemoglobin is 14.2, sodium was 133, potassium is 3.7, chloride was 96, bun was 9, creatinine was 0.41, asthma lactic acid was 2.9, improved with fluid boluses, down to 1, troponin was negative 1, influenza was negative. Follow- up chest x-ray today shows bilateral lower lobe infiltrate and small effusion, prominent interstitium, suggesting fluid overload. Patient has been afebrile, but diaphoretic, she is tachycardic, with a heart rate up to 120 BPM, pressure is 162/99, pulse ox on 3 L per nasal cannula is 96%, she is lethargic, easily arousable, fatigued and weak. She was started on a combination of Rocephin and Zithromax, belies bronchodilators, IV steroids. Echo with Doppler has been ordered, cardiology is following. Of note patient's FEV1 on 01/14/2018 was 0.45 L, or 22% of predicted, and low DLCO of 25% predicted, consistent with stage IV COPD, emphysema. Patient did have a 6 minute walk test in the office, noted to be hypoxemic, with a pulse ox of 86% at ambulation, she qualified for home oxygen, but has been reluctant to use it. She was also reluctant to use since inhalers and nebulized treatments, currently just on Xopenex HFA 45 mcg 2 puffs every 6 hours as needed. Does not have a primary care provider, was actually referred to Dr. Andres by the urgent care clinic where she would go with symptoms of recurrent cough, shortness of breath and wheezing. The patient is seen today 09/02/2018 in follow-up on the regular medical floor. She is awake and alert in no acute distress. She is currently resting quite comfortably in bed. She is improved today as compared to yesterday but still not back to her baseline. She is currently afebrile. Hemodynamically stable. Maintaining O2 saturations in the 90s on room air. White count 15.8. Hemoglobin 13.6. Creatinine 0.47. She is continued on DuoNeb inhalations, Pulmicort inhalations, IV Solu-Medrol. She was having some issues with increased anxiety and tremors secondary to performance which had been discontinued. She remains on cefepime and Levaquin. Objective - Vital Signs Vital signs: Vital Signs Temp 98.4 F 09/02/18 14:38 Pulse 92 09/02/18 15:46 Resp 16 09/02/18 15:46 BP 139/77 09/02/18 14:38 Pulse Ox 93 L 09/02/18 14:38 Intake & Output 09/01/18 09/02/18 09/02/18 18:59 06:59 18:59 Intake Total 50 Balance 50 Weight 45.359 kg Intake: Intake, IV Titration 50 Amount Cefepime 2 gm In Sodium 50 Chloride 0.9% 50 ml @ 100 mls/hr IVPB Q12H ON LICENSE OF [facility] Rx# :[id number] Other: Voiding Method Toilet # Voids 2 2 3 - Exam GENERAL EXAM: Awake, alert, 72-year-old frail looking elderly female, currently on room air. HEAD: Normocephalic/atraumatic. EYES: Normal reaction of pupils, equal size. Conjunctiva pink, sclera white. NOSE: Clear with pink turbinates. THROAT: No erythema or exudates. NECK: No masses, no JVD, no thyroid enlargement, no adenopathy. CHEST: No chest wall deformity. Symmetrical expansion. LUNGS: Diffuse rhonchi, rales, wheezes CVS: Regular rate and rhythm, normal S1 and S2, no gallops, no murmurs, no rubs. ABDOMEN: Soft, nontender. No hepatosplenomegaly, normal bowel sounds, no guarding or rigidity. EXTREMITIES: No clubbing, no edema, no cyanosis, 2+ pulses and upper and lower extremities. MUSCULOSKELETAL: Muscle strength and tone normal. SPINE: No scoliosis or deformity SKIN: No rashes CENTRAL NERVOUS SYSTEM: Somnolent and oriented -3. No focal deficits, tone is normal in all 4 extremities. - Labs CBC & Chem 7: 09/02/18 08:53 09/02/18 08:53 Labs: Abnormal Lab Results - Last 24 Hours (Table) 09/01/18 09/01/18 09/02/18 Range/Units 16:31 20:04 06:58 WBC (3.8-10.6) k/uL Neutrophils # (1.3-7.7) k/uL Lymphocytes # (1.0-4.8) k/uL Sodium (137-145) mmol/L Carbon Dioxide (22-30) mmol/L Creatinine (0.52-1.04) mg/dL Glucose (74-99) mg/dL POC Glucose (mg/dL) 137 H 112 H 125 H (75-99) mg/dL 09/02/18 09/02/18 09/02/18 Range/Units 08:53 08:53 11:51 WBC 15.8 H (3.8-10.6) k/uL Neutrophils # 14.8 H (1.3-7.7) k/uL Lymphocytes # 0.5 L (1.0-4.8) k/uL Sodium 136 L (137-145) mmol/L Carbon Dioxide 32 H (22-30) mmol/L Creatinine 0.47 L (0.52-1.04) mg/dL Glucose 140 H (74-99) mg/dL POC Glucose (mg/dL) 137 H (75-99) mg/dL Microbiology - Last 24 Hours (Table) 08/31/18 14:00 Gram Stain - Preliminary Sputum Sputum Culture - Preliminary Deborah albicans Gram Neg Bacilli 08/28/18 00:20 Blood Culture - Preliminary Blood No Growth after 120 hours 08/31/18 19:00 Urine Culture - Final Urine,Clean Catch 08/31/18 14:07 Blood Culture - Preliminary Blood No Growth after 24 hours Assessment and Plan Assessment: Assessment: #1. Acute on chronic respiratory failure secondary to bibasilar infiltrates small effusions, likely related to community-acquired pneumonia improved and on room air. #2. Lactic acidosis, improved with IV boluses #3. Mild hyponatremia, improving #4. Acute exacerbation of COPD #5. Stage IV COPD,pulmonary emphysema, chronic hypoxemic respiratory failure, underlying FEV1 of 0.45 L or 22% of predicted, with diffusion capacity of 25% of predicted. Patient is reluctant to wear home O2, although she qualifies for it. ALso reluctant to use any inhalers or nebulized treatments #6. Hypothyroidism #7. Former smoker #8. History of peripheral arterial occlusive disease #9. Chronic exertional dyspnea, and cough #10. Tachycardia Plan: The patient was seen and evaluated by Dr. Carmen. Improved, but not quite back to her baseline. We'll continue with current treatment plan. She does improve daily, we'll hold off on any bronchoscopy for now. Increase her activity as tolerated. We'll continue to follow. I, the cosigning physician, performed a history & physical examination of the patient. Lungs sounds with crackles in the bilateral posterior bases. Maintaining good O2 saturations in the 90s on room air. I discussed the assessment and plan of care with my nurse practitioner, Lyndsay Yi. I attest to the above note as dictated by her.
[2018-09-02] MEDS: LEVOFLOXACIN 750MG-D5W PMX 750 MG in DEXTROSE/WATER 1 150ML.BAG IVPB SCH (16:45)
--- NOTE | 2018-09-02 16:54 | P.PN ---
Subjective Progress Note Date: 09/02/18 Progress note being dictated for Dr. Olvera. Interval history: This a 72-year-old female admitted with bilateral pneumonia and multiple other medical issues. Maintained on cefepime and Levaquin as per infectious disease. Final sputum culture pending. Heart rate with minimal exertion just up into the 130s, sinus tachycardia. Afebrile. Continues on nebulized bronchodilators, IV steroids. Maintaining O2 sats in the low 90s on room air Objective - Vital Signs Vital signs: Vital Signs Temp 98.4 F 09/02/18 14:38 Pulse 92 09/02/18 15:46 Resp 16 09/02/18 15:46 BP 139/77 09/02/18 14:38 Pulse Ox 93 L 09/02/18 14:38 Intake & Output 09/01/18 09/02/18 09/02/18 18:59 06:59 18:59 Intake Total 50 Balance 50 Weight 45.359 kg Intake: Intake, IV Titration 50 Amount Cefepime 2 gm In Sodium 50 Chloride 0.9% 50 ml @ 100 mls/hr IVPB Q12H [facility] Rx# :[id number] Other: Voiding Method Toilet # Voids 2 2 3 - Exam PHYSICAL EXAM: VITAL SIGNS: As above GENERAL: Sitting up in bed, no acute distress HEENT: Conjunctivae normal. eyes normal. Oral mucosa moist NECK: No JVD. No thyroid enlargement. No LNs CARDIOVASCULAR: S1, S2 muffled. Tachycardic at times, No murmur RESPIRATION: Respiratory effort mildly increased Breath sounds coarse, diminished in the bases. Scattered rhonchi,crackles, fine expiratory wheezes. ABDOMEN: Soft, nontender . No guarding. no masses palpable. Bowel sounds heard. LEGS: No edema. no swelling PSYCHIATRY: Alert and oriented -3, mood and affect normal. NERVOUS SYSTEM: Cranial N 2-12 grossly normal. Moves all 4 limbs. Diffuse weakness No focal deficits. Skin: no rash Microbiology 08/31/18 14:07 Blood Blood Culture - Preliminary No Growth after 48 hours 08/31/18 14:00 Sputum Gram Stain - Preliminary 08/31/18 14:00 Sputum Sputum Culture - Preliminary Deborah albicans Gram Neg Bacilli 08/28/18 00:20 Blood Blood Culture - Preliminary No Growth after 120 hours 08/31/18 19:00 Urine,Clean Catch Urine Culture - Final 08/28/18 16:07 Urine,Voided Urine Culture - Final - Labs CBC & Chem 7: 09/02/18 08:53 09/02/18 08:53 Labs: Abnormal Lab Results - Last 24 Hours (Table) 09/01/18 09/02/18 09/02/18 Range/Units 20:04 06:58 08:53 WBC 15.8 H (3.8-10.6) k/uL Neutrophils # 14.8 H (1.3-7.7) k/uL Lymphocytes # 0.5 L (1.0-4.8) k/uL Sodium (137-145) mmol/L Carbon Dioxide (22-30) mmol/L Creatinine (0.52-1.04) mg/dL Glucose (74-99) mg/dL POC Glucose (mg/dL) 112 H 125 H (75-99) mg/dL 09/02/18 09/02/18 Range/Units 08:53 11:51 WBC (3.8-10.6) k/uL Neutrophils # (1.3-7.7) k/uL Lymphocytes # (1.0-4.8) k/uL Sodium 136 L (137-145) mmol/L Carbon Dioxide 32 H (22-30) mmol/L Creatinine 0.47 L (0.52-1.04) mg/dL Glucose 140 H (74-99) mg/dL POC Glucose (mg/dL) 137 H (75-99) mg/dL Microbiology - Last 24 Hours (Table) 08/31/18 14:00 Gram Stain - Preliminary Sputum Sputum Culture - Preliminary Deborah albicans Gram Neg Bacilli 08/28/18 00:20 Blood Culture - Preliminary Blood No Growth after 120 hours 08/31/18 19:00 Urine Culture - Final Urine,Clean Catch 08/31/18 14:07 Blood Culture - Preliminary Blood No Growth after 24 hours Assessment and Plan Assessment: -Acute on chronic respiratory failure secondary to both acute COPD exacerbation and bilateral pneumonia. -Acute bibasilar pneumonia, possibly gram-negative, possibly community-acquired with early sepsis, present on admission with slow improvement -Lactic acidosis, improved with IV fluid hydration/boluses -Advanced COPD, stage IV, emphysema -Chronic hypoxic respiratory failure -Sinus tachycardia -Anxiety -Weakness and gait dysfunction -Matter moderate protein calorie malnutrition, BMI 17.2 -History of nicotine dependence -Hypothyroidism Plan: Continue on current medication regime ,monitoring and symptomatic treatment. Maintain nebulized bronchodilators, steroids, antibiotics. No bronchoscopy recommended at this time per pulmonary.Follow closely with both pulmonary and infectious disease. Slowly improving. The impression and plan of care has been dictated as directed. : I performed a history and examination of this patient, discussed the same with the dictator. I agree with the dictator's note ,documented as a scribe. Any additional findings or plans will be noted.
[2018-09-02 16:56] LABS: Glucose,Whole Blood 121 mg/dL (75-99)
[2018-09-02 20:47] LABS: Glucose,Whole Blood 123 mg/dL (75-99)
[2018-09-03] MEDS ORDERED: methylPREDNISolone SOD SUCCI 125 MG/2 ML VIAL ONE (00:36)
--- NOTE | 2018-09-03 03:13 | PN ---
PROGRESS NOTE DATE OF SERVICE: 09/02/2018. REASON FOR FOLLOW UP: Gram-negative pneumonia. INTERVAL HISTORY: The patient is afebrile. She is breathing more comfortably. Cough has decreased in intensity and is less productive. No chest pain. No abdominal pain. No diarrhea. PHYSICAL EXAMINATION: Blood pressure 169/84, pulse of 92, temperature 97.7. She is 95% on room air. General description is an elderly female up in the bed in no distress. Respiratory system: Unlabored breathing. Some decreased breath sounds in the bases. No wheeze. Heart S1, S2. Regular rate and rhythm. Abdomen soft, no tenderness. LABS: White count down to 15.8. Sputum showing a gram-negative bacilli. DIAGNOSTIC IMPRESSION AND PLAN: Patient with gram-negative pneumonia in a patient who did not respond to initial antibiotic therapy. Her white count responded to the cefepime and Levaquin and the sputum showed gram-negative will wait for the final ID of this gram-negative to determine discharge antibiotics. Continue supportive care. MMODL / IJN: [id number] /
[2018-09-03] MEDS: CEFEPIME 2 GM in SODIUM CHLORIDE 0.9% 50 ML IVPB SCH ×2 (06:09→17:02)
[2018-09-03] MEDS: methylPREDNISolone SOD SUCCI 125 MG/2 ML VIAL IV SCH ×4 (06:10→12:08)
[2018-09-03 07:18] LABS: Glucose,Whole Blood 144 mg/dL (75-99)
[2018-09-03] MEDS: INSULIN ASPART 100 UNIT/ML 1 ML 10 ML VIAL SQ SCH ×4 (08:09→22:40)
[2018-09-03] MEDS: IPRATROPIUM-ALBUTEROL 3 ML NEB INHALATION SCH ×4 (09:10→21:10)
[2018-09-03] MEDS: BUDESONIDE 1 MG/2 ML NEBU INHALATION SCH (09:10)
[2018-09-03] MEDS: PANTOPRAZOLE 40 MG TABLET PO SCH (09:26)
[2018-09-03] MEDS: ENOXAPARIN 40 MG/0.4 ML SYRINGE SQ SCH (09:26)
[2018-09-03] MEDS: LOSARTAN 25 MG TAB PO SCH (09:27)
[2018-09-03] MEDS: FUROSEMIDE 20 MG TAB PO SCH ×2 (09:27→17:03)
[2018-09-03 11:40] LABS: Glucose,Whole Blood 117 mg/dL (75-99)
[2018-09-03] MEDS: MULTIVITAMINS, THERA 1 EACH TAB PO SCH (12:08)
[2018-09-03] MEDS: FOLIC ACID 1 MG TAB PO SCH (12:08)
[2018-09-03] MEDS: THIAMINE 100 MG TAB PO SCH (12:08)
--- NOTE | 2018-09-03 15:13 | PN ---
PROGRESS NOTE This is a 72-year-old female with a history of multiple medical problems including acute on chronic respiratory failure secondary to bilateral pneumonia, community - acquired, lactic acidosis, hyponatremia, COPD exacerbation, stage IV COPD with an FEV1 at is 22% of predicted, hypothyroidism, previous heavy tobacco use, peripheral artery disease, and tachycardia. The patient seems to be doing better. Clinically, she has improved. She has got less chest congestion. We did order a flutter valve for her. The patient hopefully can be discharged soon. She is somewhat frail. She will follow up with her street light wirer, my partner, Dr. Andres. Her medications and labs are all reviewed. Again, she is feeling much improved. Current vital signs show temperature 98.3 heart rate 80, respiratory rate 16, blood pressure 151/86, mean 107, room-air saturation is 92-93 percent. Appears no acute distress. HEENT examination is grossly unremarkable. Mucous membranes are moist. No O2 noted. Neck is supple. Full range of motion. No adenopathy or thyromegaly. Neck veins are flat. Cardiovascular examination reveals regular rhythm and rate. Heart rate about 80 beats per minute. It is regular. S1, S2 normal. No murmur. Lungs reveal a few scattered coarse rhonchi. Breath sounds are diminished throughout. Some mild expiratory wheezes. Breath sounds are improved. No crackles. Breath sounds are equal bilaterally. Abdomen is soft. Bowel sounds are heard. Extremities are intact. No cyanosis, clubbing, or edema. Skin without rash. Neurologic examination is brief but nonfocal. LABS: Reviewed. Nothing new to report from today. Most recent chest x-ray was done on the and shows diffuse bilateral infiltrates. There is some underlying COPD changes as well. Medications are reviewed. She is on appropriate medications including Maxipime and Levaquin. She is also on updrafts. She also remains on Pulmicort and Solu- Medrol. The sputum sampling was positive for Pseudomonas fluorescens. It is sensitive to both Levaquin and the cefepime. ASSESSMENT: 1. Acute on chronic hypoxemic respiratory failure secondary to bilateral pneumonia, secondary to Pseudomonas fluorescens. 2. Lactic acidosis, likely related to underlying sepsis, improved. 3. Mild hyponatremia. 4. Chronic obstructive pulmonary disease exacerbation. 5. Stage IV/end-stage chronic obstructive pulmonary disease with an FEV1 that is 22% of predicted. 6. History of hypothyroidism. 7. Previous history of heavy tobacco use. 8. History of peripheral artery disease. 9. Chronic tachycardia. PLAN: The patient is on appropriate medications. Levaquin and cefepime is effective against Pseudomonas fluorescens. Will DC the Pulmicort and put the patient on Symbicort. The patient is currently on Solu-Medrol. That will be discontinued in favor of prednisone. She will continue on antibiotics. Additional recommendations and suggestions are forthcoming. Prognosis is guarded. She will need to follow with Dr. Andres post discharge. MMODL / IJN: [id number] / SOFIA
--- NOTE | 2018-09-03 16:55 | PN ---
PROGRESS NOTE DATE OF SERVICE: 09/03/2018. REASON FOR FOLLOWUP: Gram-negative pneumonia. INTERVAL HISTORY: The patient is currently afebrile. She is breathing more comfortably. Her cough has decreased intensity. No chest pain. No abdominal pain. No diarrhea. PHYSICAL EXAMINATION: Blood pressure 153/93 with a pulse 113, temperature 98. She is 93% on room air. General description is an elderly female up in the bed in no distress. Respiratory system: Unlabored breathing with decreased breath sounds in the base. No wheeze. Heart S1, S2. Regular rate and rhythm. Abdomen soft, no tenderness. LABS: No new labs have been obtained today. Sputum showing Pseudomonas fluorescens, which is sensitive to cefepime as well as Levaquin. DIAGNOSTIC IMPRESSION AND PLAN: Patient with gram-negative pneumonia. The patient has shown overall improvement on cefepime and Levaquin. Plan is to finish therapy with oral Levaquin 750 daily for another 5-7 days with close outpatient followup. Continue supportive care. MMODL / IJN: [id number] /
[2018-09-03] MEDS: LEVOFLOXACIN 750 MG TAB PO SCH (17:03)
[2018-09-03 17:35] LABS: Glucose,Whole Blood 129 mg/dL (75-99)
[2018-09-03 20:22] LABS: Glucose,Whole Blood 150 mg/dL (75-99)
[2018-09-03] MEDS: SYMBICORT 160-4.5 MCG INHALER INHALATION SCH (21:10)
[2018-09-03 21:35] VITALS: RESP 16
[2018-09-04] MEDS: CEFEPIME 2 GM in SODIUM CHLORIDE 0.9% 50 ML IVPB SCH (05:52)
[2018-09-04 07:17] LABS: Glucose,Whole Blood 101 mg/dL (75-99)
[2018-09-04] MEDS: INSULIN ASPART 100 UNIT/ML 1 ML 10 ML VIAL SQ SCH ×2 (07:41→14:06)
[2018-09-04] MEDS: LOSARTAN 25 MG TAB PO SCH (08:41)
[2018-09-04] MEDS: THIAMINE 100 MG TAB PO SCH (08:41)
[2018-09-04] MEDS: PANTOPRAZOLE 40 MG TABLET PO SCH (08:41)
[2018-09-04] MEDS: MULTIVITAMINS, THERA 1 EACH TAB PO SCH (08:41)
[2018-09-04] MEDS: ENOXAPARIN 40 MG/0.4 ML SYRINGE SQ SCH (08:42)
[2018-09-04] MEDS: FUROSEMIDE 20 MG TAB PO SCH (08:42)
[2018-09-04] MEDS: FOLIC ACID 1 MG TAB PO SCH (08:42)
[2018-09-04 08:55] VITALS: TEMP 98
[2018-09-04] MEDS ORDERED: predniSONE 20 MG TAB PO SCH (09:00)
[2018-09-04] MEDS: IPRATROPIUM-ALBUTEROL 3 ML NEB INHALATION SCH ×3 (09:24→16:45)
[2018-09-04] MEDS: SYMBICORT 160-4.5 MCG INHALER INHALATION SCH (09:24)
[2018-09-04 12:06] LABS: Glucose,Whole Blood 90 mg/dL (75-99)
--- NOTE | 2018-09-04 14:47 | P.PN ---
Subjective Progress Note Date: 09/04/18 Principal diagnosis: Acute on chronic respiratory failure secondary to basilar infiltrate, small effusions, suspect community-acquired pneumonia This is a 72-year-old white female patient recently diagnosed with COPD, presented to the emergency department on 08/27/2018 at 1800 for evaluation of worsening shortness of breath, cough, chest congestion, elevated blood pressure. Patient presented to the urgent care and transferred to the emergency department in view of hypoxemia, tachycardia and hypertension. Patient had a recent upper respiratory infection. Chest x-ray showed COPD, coarsening of the interstitial markings, bilateral patchy lower lobe pneumonia, small pleural effusions. Lab work was negative for any leukocytosis, WBC was 10.2, hemoglobin is 14.2, sodium was 133, potassium is 3.7, chloride was 96, bun was 9, creatinine was 0.41, asthma lactic acid was 2.9, improved with fluid boluses, down to 1, troponin was negative 1, influenza was negative. Follow- up chest x-ray today shows bilateral lower lobe infiltrate and small effusion, prominent interstitium, suggesting fluid overload. Patient has been afebrile, but diaphoretic, she is tachycardic, with a heart rate up to 120 BPM, pressure is 162/99, pulse ox on 3 L per nasal cannula is 96%, she is lethargic, easily arousable, fatigued and weak. She was started on a combination of Rocephin and Zithromax, belies bronchodilators, IV steroids. Echo with Doppler has been ordered, cardiology is following. Of note patient's FEV1 on 01/14/2018 was 0.45 L, or 22% of predicted, and low DLCO of 25% predicted, consistent with stage IV COPD, emphysema. Patient did have a 6 minute walk test in the office, noted to be hypoxemic, with a pulse ox of 86% at ambulation, she qualified for home oxygen, but has been reluctant to use it. She was also reluctant to use since inhalers and nebulized treatments, currently just on Xopenex HFA 45 mcg 2 puffs every 6 hours as needed. Does not have a primary care provider, was actually referred to Dr. Andres by the urgent care clinic where she would go with symptoms of recurrent cough, shortness of breath and wheezing. The patient is seen today 09/02/2018 in follow-up on the regular medical floor. She is awake and alert in no acute distress. She is currently resting quite comfortably in bed. She is improved today as compared to yesterday but still not back to her baseline. She is currently afebrile. Hemodynamically stable. Maintaining O2 saturations in the 90s on room air. White count 15.8. Hemoglobin 13.6. Creatinine 0.47. She is continued on DuoNeb inhalations, Pulmicort inhalations, IV Solu-Medrol. She was having some issues with increased anxiety and tremors secondary to performance which had been discontinued. She remains on cefepime and Levaquin. On 09/04/2018 patient seen again in follow-up on medical surgical floor, she continues to improve, sitting up in the bed in no acute distress, breathing easier, she has been afebrile, hemodynamically stable, room air pulse ox is 93% , patient did desat to 86 during home oxygen assessment, will likely require home oxygen. Sputum culture was positive for pseudomonas fluorescence, crit abiotic coverage includes cefepime and Levaquin, as the organism is susceptible to both of the antibiotics. Urine and blood cultures are negative, lung sounds are less congested, less wheezy, are essentially clear on today's exam. Pulmonary perspective patient is stable for discharge home today Objective - Vital Signs Vital signs: Vital Signs Temp 98.0 F 09/04/18 08:01 Pulse 100 09/04/18 12:44 Resp 16 09/04/18 08:01 BP 162/91 09/04/18 08:01 Pulse Ox 86 L 09/04/18 13:47 Intake & Output 09/03/18 09/04/18 09/04/18 18:59 06:59 18:59 Intake Total 250 865 Balance 250 865 Intake: Oral 250 865 Other: Voiding Method Toilet # Voids 4 1 3 - Exam GENERAL EXAM: Awake, alert, 72-year-old frail looking elderly female, currently on room air. HEAD: Normocephalic/atraumatic. EYES: Normal reaction of pupils, equal size. Conjunctiva pink, sclera white. NOSE: Clear with pink turbinates. THROAT: No erythema or exudates. NECK: No masses, no JVD, no thyroid enlargement, no adenopathy. CHEST: No chest wall deformity. Symmetrical expansion. LUNGS: Clear, diminished at the bases, no rhonchi no wheezing noted on today's exam CVS: Regular rate and rhythm, normal S1 and S2, no gallops, no murmurs, no rubs. ABDOMEN: Soft, nontender. No hepatosplenomegaly, normal bowel sounds, no guarding or rigidity. EXTREMITIES: No clubbing, no edema, no cyanosis, 2+ pulses and upper and lower extremities. MUSCULOSKELETAL: Muscle strength and tone normal. SPINE: No scoliosis or deformity SKIN: No rashes CENTRAL NERVOUS SYSTEM: Somnolent and oriented -3. No focal deficits, tone is normal in all 4 extremities. - Labs CBC & Chem 7: 09/02/18 08:53 09/02/18 08:53 Labs: Abnormal Lab Results - Last 24 Hours (Table) 09/03/18 09/03/18 09/04/18 Range/Units 17:09 20:11 07:01 POC Glucose (mg/dL) 129 H 150 H 101 H (75-99) mg/dL Microbiology - Last 24 Hours (Table) 08/31/18 14:07 Blood Culture - Preliminary Blood No Growth after 72 hours 08/31/18 14:00 Gram Stain - Final Sputum Sputum Culture - Final Deborah albicans Pseudomonas fluorescens/putida Assessment and Plan Plan: Assessment: #1. Acute on chronic respiratory failure secondary to bibasilar infiltrates small effusions, likely related to community-acquired pneumonia #2. Lactic acidosis, improved with IV boluses #3. Mild hyponatremia, improving #4. Acute exacerbation of COPD #5. Stage IV COPD,pulmonary emphysema, chronic hypoxemic respiratory failure, underlying FEV1 of 0.45 L or 22% of predicted, with diffusion capacity of 25% of predicted. Patient is reluctant to wear home O2, although she qualifies for it. ALso reluctant to use any inhalers or nebulized treatments #6. Hypothyroidism #7. Former smoker #8. History of peripheral arterial occlusive disease #9. Chronic exertional dyspnea, and cough #10. Tachycardia Plan: Patient is improving, she is stable. Reading easier, she will likely need home oxygen set up. No fever or chills, antibiotics per ID service recommendations, from pulmonary perspective patient is stable for discharge home today, follow up with Dr. Ferro in the office in one week. I performed a history & physical examination of the patient and discussed their management with my nurse practitioner, Daisy Sadler. I reviewed the nurse practitioner's note and agree with the documented findings and plan of care. Lung sounds are positive for diffuse rhonchi and rales. The findings and the impression was discussed with the patient. I attest to the documentation by the nurse practitioner. Time with Patient: Less than 30
[2018-09-04 15:27] VITALS: BP 160/88; PULSE 92
[2018-09-04] MEDS: LEVOFLOXACIN 750 MG TAB PO SCH (17:24)
--- NOTE | 2018-09-04 21:52 | PN ---
PROGRESS NOTE DATE OF SERVICE: 09/04/2018 REASON FOR FOLLOWUP: Gram-negative pneumonia. INTERVAL HISTORY: The patient was seen on rounds this afternoon. The patient was afebrile. She was breathing more comfortably on room air. The patient denied having any chest pain. Occasional cough. No abdominal pain and no diarrhea. PHYSICAL EXAMINATION: Blood pressure is 160/88 with a pulse of 92, temperature 98. She is 92% on room air. General description is an elderly female up in the bed in no distress. RESPIRATORY SYSTEM: Unlabored breathing. Clear to auscultation anteriorly. HEART: S1, S2. Regular rate and rhythm. ABDOMEN: Soft. No tenderness. LABS: No new labs have been obtained today. DIAGNOSTIC IMPRESSION AND PLAN: Patient with gram-negative pneumonia, overall improved with cefepime and Levaquin. To finish therapy, a short course of oral Levaquin with close outpatient followup. Continue with supportive care. MMODL / IJN: [id number] /
--- NOTE | 2018-09-05 17:44 | P.PN ---
Subjective Progress Note Date: 09/03/18 Progress note being dictated for Dr. Olvera. Interval history: This a 72-year-old female admitted with bilateral pneumonia and multiple other medical issues. Maintained on cefepime and Levaquin as per infectious disease. Final sputum culture pending. Heart rate with minimal exertion just up into the 130s, sinus tachycardia. Afebrile. Continues on nebulized bronchodilators, IV steroids. Maintaining O2 sats in the low 90s on room air 09/03/2018 maintained on cefepime, Levaquin. breathing improving, using flutter valve. Tachycardia improving with minimal exertion with heart rates up into the mid 120s. Sputum reporting Pseudomonas fluorescens with repeat sputum collection in progress. Currently nonproductive cough. Denies chest pain. No nausea vomiting or diarrhea. Afebrile. Objective - Vital Signs Vital signs: Vital Signs Temp 98 F 09/03/18 15:00 Pulse 100 09/03/18 16:57 Resp 18 09/03/18 16:57 BP 163/93 09/03/18 15:00 Pulse Ox 91 L 09/03/18 16:49 Intake & Output 09/03/18 09/03/18 09/04/18 06:59 18:59 06:59 Intake Total 1220 250 Balance 1220 250 Intake: Intake, IV Titration 50 Amount Cefepime 2 gm In Sodium 50 Chloride 0.9% 50 ml @ 100 mls/hr IVPB Q12H [facility] Rx# :[id number] Oral 1170 250 Other: Voiding Method Toilet # Voids 1 4 - Exam PHYSICAL EXAM: VITAL SIGNS: As above GENERAL: Frail appearing ,Sitting up in bed, no acute distress HEENT: Conjunctivae normal. eyes normal. Oral mucosa moist NECK: No JVD. No thyroid enlargement. No LNs CARDIOVASCULAR: S1, S2 muffled. Tachycardic, No murmur RESPIRATION: Respiratory effort mildly increased Breath sounds coarse, diminished in the bases. Scattered rhonchi,crackles, fine expiratory wheezes. ABDOMEN: Soft, nontender . No guarding. no masses palpable. Bowel sounds heard. LEGS: No edema. no swelling PSYCHIATRY: Alert and oriented -3, mood and affect normal. NERVOUS SYSTEM: Cranial N 2-12 grossly normal. Moves all 4 limbs. Diffuse weakness No focal deficits. Skin: no rash - Labs CBC & Chem 7: 09/02/18 08:53 09/02/18 08:53 Labs: Abnormal Lab Results - Last 24 Hours (Table) 09/03/18 09/03/18 09/03/18 Range/Units 07:16 11:38 17:09 POC Glucose (mg/dL) 144 H 117 H 129 H (75-99) mg/dL 09/03/18 Range/Units 20:11 POC Glucose (mg/dL) 150 H (75-99) mg/dL Microbiology - Last 24 Hours (Table) 08/31/18 14:07 Blood Culture - Preliminary Blood No Growth after 72 hours 08/31/18 14:00 Gram Stain - Final Sputum Sputum Culture - Final Deborah albicans Pseudomonas fluorescens/putida 08/28/18 00:20 Blood Culture - Final Blood No Growth after 144 hours Assessment and Plan Assessment: -Acute on chronic respiratory failure secondary to both acute COPD exacerbation and bilateral pneumonia. -Acute bibasilar pneumonia, gram-negative, possibly community-acquired with early sepsis, present on admission, slowly improving -Lactic acidosis, improved with IV fluid hydration/boluses -Advanced COPD, stage IV, emphysema -Chronic hypoxic respiratory failure -Sinus tachycardia -Anxiety -Weakness and gait dysfunction -Matter moderate protein calorie malnutrition, BMI 17.2 -History of nicotine dependence -Hypothyroidism Plan: Continue on current medication regime ,monitoring and symptomatic treatment. Tachycardia affiliated with possibly IV steroids as per pulmonary ; converted to oral prednisone. Maintain nebulized bronchodilators, oral steroids , antibiotics. Discharge planning in progress for tomorrow pending pulmonary and infectious disease clearance. The impression and plan of care has been dictated as directed. : I performed a history and examination of this patient, discussed the same with the dictator. I agree with the dictator's note ,documented as a scribe. Any additional findings or plans will be noted.
--- NOTE | 2018-09-05 17:53 | P.DS ---
Providers Date of admission: 08/27/18 23:26 Expected date of discharge: 09/05/18 Attending physician: Po Olvera Consults: 08/27/18 23:26 Consult Physician Routine Consulting Provider: Jenise Andres Consult Reason/Comments: pna Do you want consulting provider notified?: Yes 08/28/18 00:45 Consult Physician Routine Consulting Provider: Amna Gao Consult Reason/Comments: increased heart rate Do you want consulting provider notified?: Yes 08/31/18 13:31 Consult Physician Routine Consulting Provider: Michelle Valero Consult Reason/Comments: pneumonia worsening PEN allergy Do you want consulting provider notified?: Yes Primary care physician: Jenise Andres Hospital Course: Final Diagnoses: -Acute on chronic respiratory failure secondary to both acute COPD exacerbation and bilateral pneumonia. -Acute bibasilar pneumonia, gram-negative, possibly community-acquired with early sepsis, present on admission, slowly improving -Lactic acidosis, improved with IV fluid hydration/boluses -Advanced COPD, stage IV, emphysema -Chronic hypoxic respiratory failure -Sinus tachycardia -Anxiety -Weakness and gait dysfunction -Matter moderate protein calorie malnutrition, BMI 17.2 -History of nicotine dependence -Hypothyroidism Hospital course:This a 72-year-old female admitted with bilateral pneumonia and multiple other medical issues. Maintained on cefepime and Levaquin as per infectious disease. Final sputum culture pending. Heart rate with minimal exertion just up into the 130s, sinus tachycardia. Afebrile. Continues on nebulized bronchodilators, IV steroids. Maintaining O2 sats in the low 90s on room air 09/03/2018 maintained on cefepime, Levaquin. breathing improving, using flutter valve. Tachycardia improving with minimal exertion with heart rates up into the mid 120s. Sputum reporting Pseudomonas fluorescens with repeat sputum collection in progress. Currently nonproductive cough. Denies chest pain. No nausea vomiting or diarrhea. Afebrile. Significant clinical improvement. Cleared by both pulmonary and infectious disease. Patient will require home oxygen being arranged by rn case manager hospice. Patient is being discharged home in a stable condition with guarded prognosis. EXAM: GENERAL: Alert and oriented 3, no acute distress. CARDIOVASCULAR: S1, S2 muffled. Tachycardic, No murmur. RESPIRATION: Respiratory effort mildly increased Breath sounds coarse, diminished in the bases. ABDOMEN: Soft, nontender . No guarding. no masses palpable. Bowel sounds heard. NERVOUS SYSTEM: No focal deficits. Microbiology 08/31/18 14:07 Blood Blood Culture - Preliminary No Growth after 120 hours 09/04/18 09:30 Sputum Gram Stain - Preliminary 09/04/18 09:30 Sputum Sputum Culture - Preliminary Deborah albicans 08/31/18 14:00 Sputum Gram Stain - Final 08/31/18 14:00 Sputum Sputum Culture - Final Deborah albicans Pseudomonas fluorescens/putida 08/28/18 00:20 Blood Blood Culture - Final No Growth after 144 hours 08/31/18 19:00 Urine,Clean Catch Urine Culture - Final 08/28/18 16:07 Urine,Voided Urine Culture - Final The impression and plan of care has been dictated as directed. : I performed a history and examination of this patient, discussed the same with the dictator. I agree with the dictator's note ,documented as a scribe. Any additional findings or plans will be noted. Time taken: 35 minutes Patient Condition at Discharge: Stable Plan - Discharge Summary Discharge Rx Participant: No New Discharge Prescriptions: New Levofloxacin [Levaquin] 750 mg PO DAILY #6 tab Budesonide-Formot 160-4.5 Mcg [Symbicort 160-4.5 Mcg Inhaler] 2 puff INHALATION RT-BID #1 inhaler Furosemide [Lasix] 20 mg PO BID@0900,1600 #60 tab Losartan [Cozaar] 50 mg PO DAILY #30 tab predniSONE 10 mg PO DAILY #30 tab Ranitidine HCl [Zantac] 150 mg PO BID #30 tab Thiamine [Vitamin B-1] 100 mg PO DAILY@1200 #30 tab Continue Naproxen Sodium [Aleve] 220 mg PO BID PRN PRN Reason: Pain Levalbuterol Tartrate [Xopenex Hfa Inhaler] 1 - 2 puff INHALATION RT-QID PRN PRN Reason: Shortness Of Breath Cholecalciferol [Vitamin D3] 1,000 unit PO DAILY Vitamin B Complex 1 cap PO DAILY Discharge Medication List Cholecalciferol [Vitamin D3] 1,000 unit PO DAILY 08/27/18 [History] Levalbuterol Tartrate [Xopenex Hfa Inhaler] 1 - 2 puff INHALATION RT-QID PRN 10/14 [History] Naproxen Sodium [Aleve] 220 mg PO BID PRN 08/27/18 [History] Vitamin B Complex 1 cap PO DAILY 08/27/18 [History] Budesonide-Formot 160-4.5 Mcg [Symbicort 160-4.5 Mcg Inhaler] 2 puff INHALATION RT-BID #1 inhaler 09/04/18 [Rx] Furosemide [Lasix] 20 mg PO BID@0900,1600 #60 tab 09/04/18 [Rx] Levofloxacin [Levaquin] 750 mg PO DAILY #6 tab 09/04/18 [Rx] Losartan [Cozaar] 50 mg PO DAILY #30 tab 09/04/18 [Rx] Ranitidine HCl [Zantac] 150 mg PO BID #30 tab 09/04/18 [Rx] Thiamine [Vitamin B-1] 100 mg PO DAILY@1200 #30 tab 09/04/18 [Rx] predniSONE 10 mg PO DAILY #30 tab 09/04/18 [Rx] Follow up Appointment(s)/Referral(s): Jenise Andres MD [Primary Care Provider] - 1-2 days (Office closed, please call and make appointment) [facility] [NON-STAFF] - As Needed (oxygen ) [facility], [NON-STAFF] - As Needed Michelle Valero MD [STAFF PHYSICIAN] - 09/15/18 10:45 am Patient Instructions/Handouts: COPD (Chronic Obstructive Pulmonary Disease) (DC ), Bacterial Pneumonia (DC) Activity/Diet/Wound Care/Special Instructions: Call [facility] to arrange housekeeping: #[phone] Discharge Disposition: HOME WITH HOME HEALTH SERVICES
== END 2018-09-04 18:03 | disposition home health service (06) | DRG 871 ==
LOC: EC 18:05 → 4SSUR 23:26
PROVIDERS: ADMIT Hospitalist; ATTEND Hospitalist
DX: A41.9 Sepsis, unspecified organism (principal); J15.6 Pneumonia due to other Gram-negative bacteria; J96.21 Acute and chronic respiratory failure with hypoxia; R64 Cachexia; Z68.1 Body mass index [BMI] 19.9 or less, adult; E44.0 Moderate protein-calorie malnutrition; J44.0 Chronic obstructive pulmonary disease with (acute) lower respiratory infection; J44.1 Chronic obstructive pulmonary disease with (acute) exacerbation; E87.1 Hypo-osmolality and hyponatremia; E87.2 Acidosis; J90 Pleural effusion, not elsewhere classified; J84.10 Pulmonary fibrosis, unspecified; I10 Essential (primary) hypertension; R00.0 Tachycardia, unspecified; E89.0 Postprocedural hypothyroidism; F41.1 Generalized anxiety disorder; R26.9 Unspecified abnormalities of gait and mobility; R25.1 Tremor, unspecified; R54 Age-related physical debility; Z79.899 Other long term (current) drug therapy; Z90.710 Acquired absence of both cervix and uterus; Z90.49 Acquired absence of other specified parts of digestive tract; Z87.891 Personal history of nicotine dependence; Z86.79 Personal history of other diseases of the circulatory system; Z87.19 Personal history of other diseases of the digestive system; Z82.49 Family history of ischemic heart disease and other diseases of the circulatory system; Z88.0 Allergy status to penicillin; Z88.8 Allergy status to other drugs, medicaments and biological substances
CPT/HCPCS: 36415; 71045; 71046; 80048; 80053; 82550; 82553; 83036; 83605; 83880; 84443; 84484; 85025; 85610; 85730; 87040; 87070; 87077; 87086; 87186; 87205; 87502; 93005; 93306; 94640; 94667; 96361; 96365; 96375; 99285

== ENCOUNTER 2018-10-24 11:35 | Inpatient (IN) | payer MEDICARE, BC ==
[2018-10-24] MEDS ORDERED: MORPHINE SULFATE 4 MG/ML SYRINGE IV STA (12:13)
[2018-10-24] MEDS ORDERED: SODIUM CHLORIDE 0.9% 1,000 ML IV STA (12:13)
--- NOTE | 2018-10-24 12:19 | ED ---
General Adult HPI <Paramjit Mera - Last Filed: 10/24/18 14:05> - General Source: patient, EMS, RN notes reviewed, old records reviewed Mode of arrival: EMS Limitations: no limitations <Alec Beard - Last Filed: 10/24/18 14:26> - General Chief complaint: Back Pain/Injury Stated complaint: Back pain Time Seen by Provider: 10/24/18 12:00 - History of Present Illness Initial comments: 72-year-old female patient past medical history of hypertension, COPD, colitis, thoracic and lumbar back pain presents to ED with approximately a one-month exacerbation of her thoracic back pain. Patient was recently hospitalized for pneumonia from -09/04. During this time. She exacerbated her back pain while getting out of bed. Patient states that this exacerbation improved, however approximately one week ago while getting out of the bathtub she again strained her thoracic back region. Patient reports that this pain has progressively gotten worse, yesterday and today. Patient describes as a dull pain which is left parathoracic. Patient did not take anything for this pain. Patient denies any other complaints including chest pain, shortness of breath, abdominal pain, loss of bowel or bladder control, paresthesias, lower extremity weakness. Systemic: Pt denies fatigue, fever/chills, rash. Pt denies weakness, night sweats, weight loss. Neuro: Pt denies headache, visual disturbances, syncope or pre-syncope. HEENT: Pt denies ocular discharge or irritation, otalgia, rhinorrhea, pharyngitis or notable lymphadenopathy. Cardiopulmonary: Pt denies chest pain, SOB, heart palpitations, dyspnea on exertion. Abdominal/GI: Pt denies abdominal pain, n/v/d. : Pt denies dysuria, burning w/ urination, frequency/urgency. Denies new onset urinary or bowel incontinence. MSK: Pt denies loss of strength or function in extremities. Neuro: Pt denies new onset weakness, paresthesias. (Alec Beard) - Related Data Home Medications Medication Instructions Recorded Confirmed Losartan Potassium 50 mg PO DAILY 10/24/18 10/24/18 Allergies Allergy/AdvReac Type Severity Reaction Status Date / Time iodine Allergy Anaphylaxis Verified 10/24/18 14:00 peanut Allergy Anaphylaxis Verified 10/24/18 14:00 Penicillins Allergy Anaphylaxis Verified 10/24/18 14:00 lactose AdvReac Nausea & Verified 10/24/18 14:00 Vomiting & Diarrhea Review of Systems ROS Other: All systems not noted in ROS Statement are negative. <Paramjit Mera - Last Filed: 10/24/18 14:05> ROS Other: All systems not noted in ROS Statement are negative. <Alec Beard - Last Filed: 10/24/18 14:26> ROS Statement: Those systems with pertinent positive or pertinent negative responses have been documented in the HPI. Past Medical History Past Medical History: COPD, Hypertension, Thyroid Disorder Additional Past Medical History / Comment(s): colitis, OP History of Any Multi-Drug Resistant Organisms: None Reported Past Surgical History: Cholecystectomy, Hysterectomy Additional Past Surgical History / Comment(s): throidectomy Past Psychological History: No Psychological Hx Reported Smoking Status: Former smoker Past Alcohol Use History: None Reported Past Drug Use History: None Reported - Past Family History Father Family Medical History: No Reported History Mother Family Medical History: Hypertension <Alec Beard - Last Filed: 10/24/18 14:26> General Exam <Paramjit Mera - Last Filed: 10/24/18 14:05> Limitations: no limitations <Alec Beard - Last Filed: 10/24/18 14:26> - General Exam Comments Initial Comments: Constitutional: NAD, AOX3, Pt has pleasant affect. HEENT: NC/AT, trachea midline, neck supple, no lymphadenopathy. Posterior pharynx non erythematous, without exudates. External ears appear normal, without discharge. Mucous membranes moist. Eyes PERRLA, EOM intact. There is no scleral icterus. No pallor noted. Cardiopulmonary: RRR, no murmurs, rubs or gallops, no JVD noted. Lungs CTAB in anterior and posterior fish. No peripheral edema. Abdominal exam: Abdomen soft and non-distended. Abdomen non-tender to palpation in all 4 quadrants. Bowel sounds active in LLQ. No hepatosplenomegaly. No ecchymosis Neuro: CN II-XII grossly intact. No nuchal rigidity. MSK: Thoracic and lumbar region mildly tender to palpation. No posterior calf tenderness bilaterally, homans sign negative bilaterally. Posterior tibialis and radial pulse +2 bilaterally. Sensation intact in upper and lower extremities. Full active ROM in upper and lower extremities, 5/5 stregnth. (Alec Beard) Course <Paramjit Mera - Last Filed: 10/24/18 14:05> <Alec Beard - Last Filed: 10/24/18 14:26> Vital Signs 10/24/18 10/24/18 10/24/18 11:49 12:35 13:35 Temperature 99.2 F Pulse Rate 96 85 Respiratory 20 19 Rate Blood Pressure 200/121 196/120 122/70 O2 Sat by Pulse 98 98 Oximetry - Reevaluation(s) Reevaluation #1: 10/24/18 14:06 Patient reevaluated and reexamined by myself, Dr. Mera. Patient is resting comfortably in bed. Patient complains of continued back discomfort. Patient updated on results and plan. Case was discussed in detail with Dr. Olvera, covering for hospital call, who will admit. Orthopedics will be placed on consult. (Paramjit Mera) Medical Decision Making - Lab Data Result diagrams: 10/24/18 12:55 10/24/18 12:55 <Paramjit Mera - Last Filed: 10/24/18 14:05> - Lab Data Result diagrams: 10/24/18 12:55 10/24/18 12:55 <Alec Beard - Last Filed: 10/24/18 14:26> - Medical Decision Making 72-year-old female patient past medical history of hypertension, COPD, colitis, thoracic and lumbar back pain presents to ED with approximately a one-month exacerbation of her thoracic back pain. Patient was recently hospitalized for pneumonia from -09/04. During this time. She exacerbated her back pain while getting out of bed. Patient states that this exacerbation improved, however approximately one week ago while getting out of the bathtub she again strained her thoracic back region. Patient reports that this pain has progressively gotten worse, yesterday and today. Patient describes as a dull pain which is left parathoracic. Patient did not take anything for this pain. Patient denies any other complaints including chest pain, shortness of breath, abdominal pain, loss of bowel or bladder control, paresthesias, lower extremity weakness. Pt VS initially displayed hypertension, VSS after antihypertensive administration. Physical exam revealed thoracic and lumbar spine moderately tender to palpation. Laboratory [id number] male impressive CBC, CMP , coagulation studies, troponin negative. CT of thoracic and lumbar spine without contrast revealed compression fracture L2, compression/and T12 and T11, degenerative disc disease, pulmonary nodule, cystic lesion and left adnexa. These findings were explained to patient at length. Patient to be admitted to the hospital for pain control and for orthopedic consult. After antihypertensive administration patient did develop some transient chest pain which resolved - this is likely due to transient hypotension. EKG was normal sinus rhythm, no concern for acute ischemia. Troponin was negative. Patient will have troponins trended during admission. (Alec Beard) - Lab Data Lab Results 10/24/18 10/24/18 10/24/18 Range/Units 12:20 12:55 12:55 WBC 9.5 (3.8-10.6) k/uL RBC 4.72 (3.80-5.40) m/uL Hgb 14.3 (11.4-16.0) gm/dL Hct 44.1 (34.0-46.0) % MCV 93.3 (80.0-100.0) fL MCH 30.3 (25.0-35.0) pg MCHC 32.5 (31.0-37.0) g/dL RDW 13.7 (11.5-15.5) % Plt Count 219 (150-450) k/uL Neutrophils % 65 % Lymphocytes % 24 % Monocytes % 5 % Eosinophils % 4 % Basophils % 0 % Neutrophils # 6.2 (1.3-7.7) k/uL Lymphocytes # 2.2 (1.0-4.8) k/uL Monocytes # 0.5 (0-1.0) k/uL Eosinophils # 0.4 (0-0.7) k/uL Basophils # 0.0 (0-0.2) k/uL PT (9.0-12.0) sec INR (<1.2) APTT (22.0-30.0) sec Sodium 141 (137-145) mmol/L Potassium 4.0 (3.5-5.1) mmol/L Chloride 112 H (98-107) mmol/L Carbon Dioxide 24 (22-30) mmol/L Anion Gap 5 mmol/L BUN 13 (7-17) mg/dL Creatinine 0.48 L (0.52-1.04) mg/dL Est GFR (CKD-EPI)AfAm >90 (>60 ml/min/1.73 sqM) Est GFR (CKD-EPI)NonAf >90 (>60 ml/min/1.73 sqM) Glucose 89 (74-99) mg/dL Calcium 8.7 (8.4-10.2) mg/dL Total Bilirubin 0.6 (0.2-1.3) mg/dL AST 22 (14-36) U/L ALT 24 (9-52) U/L Alkaline Phosphatase 113 (38-126) U/L Troponin I (0.000-0.034) ng/mL Total Protein 5.5 L (6.3-8.2) g/dL Albumin 3.2 L (3.5-5.0) g/dL Urine Color Colorless Urine Appearance Clear (Clear) Urine pH 7.5 (5.0-8.0) Ur Specific [place] 1.005 (1.001-1.035) Urine Protein Negative (Negative) Urine Glucose (UA) Negative (Negative) Urine Ketones Negative (Negative) Urine Blood Negative (Negative) Urine Nitrite Negative (Negative) Urine Bilirubin Negative (Negative) Urine Urobilinogen <2.0 (<2.0) mg/dL Ur Leukocyte Esterase Negative (Negative) 10/24/18 10/24/18 Range/Units 12:55 12:55 WBC (3.8-10.6) k/uL RBC (3.80-5.40) m/uL Hgb (11.4-16.0) gm/dL Hct (34.0-46.0) % MCV (80.0-100.0) fL MCH (25.0-35.0) pg MCHC (31.0-37.0) g/dL RDW (11.5-15.5) % Plt Count (150-450) k/uL Neutrophils % % Lymphocytes % % Monocytes % % Eosinophils % % Basophils % % Neutrophils # (1.3-7.7) k/uL Lymphocytes # (1.0-4.8) k/uL Monocytes # (0-1.0) k/uL Eosinophils # (0-0.7) k/uL Basophils # (0-0.2) k/uL PT 10.6 (9.0-12.0) sec INR 1.0 (<1.2) APTT 22.7 (22.0-30.0) sec Sodium (137-145) mmol/L Potassium (3.5-5.1) mmol/L Chloride (98-107) mmol/L Carbon Dioxide (22-30) mmol/L Anion Gap mmol/L BUN (7-17) mg/dL Creatinine (0.52-1.04) mg/dL Est GFR (CKD-EPI)AfAm (>60 ml/min/1.73 sqM) Est GFR (CKD-EPI)NonAf (>60 ml/min/1.73 sqM) Glucose (74-99) mg/dL Calcium (8.4-10.2) mg/dL Total Bilirubin (0.2-1.3) mg/dL AST (14-36) U/L ALT (9-52) U/L Alkaline Phosphatase (38-126) U/L Troponin I <0.012 (0.000-0.034) ng/mL Total Protein (6.3-8.2) g/dL Albumin (3.5-5.0) g/dL Urine Color Urine Appearance (Clear) Urine pH (5.0-8.0) Ur Specific [place] (1.001-1.035) Urine Protein (Negative) Urine Glucose (UA) (Negative) Urine Ketones (Negative) Urine Blood (Negative) Urine Nitrite (Negative) Urine Bilirubin (Negative) Urine Urobilinogen (<2.0) mg/dL Ur Leukocyte Esterase (Negative) Disposition <Paramjit Mera - Last Filed: 10/24/18 14:05> Is patient prescribed a controlled substance at d/c from ED?: No <Alec Beard - Last Filed: 10/24/18 14:26> Clinical Impression: Compression fracture Disposition: ADMITTED IP TO THIS [facility] Condition: Serious
[2018-10-24] MEDS ORDERED: hydrALAZINE HCL 20 MG/ML 1 ML VIAL IVP STA (12:37)
[2018-10-24] MEDS ORDERED: LABETALOL SYRINGE 5 MG/ML IVP STA (12:40)
[2018-10-24 12:43] LABS: Appearance,Urine Clear (Clear); Bilirubin,Urine Negative (Negative); Blood,Urine Negative (Negative); Color,Urine Colorless; Glucose,Urine (UA) Negative (Negative); Ketones,Urine Negative (Negative); Leukocyte Esterase,Urine Negative (Negative); Nitrite,Urine Negative (Negative); PH, Urine 7.5 (5.0-8.0); Protein,Urine Negative (Negative); Specific Gravity,Urine 1.005 (1.001-1.035); Urobilinogen,Urine <2.0 mg/dL (<2.0)
[2018-10-24 13:10] LABS: Basophils % (A) 0 %; Eosinophils # (A) 0.4 k/uL (0-0.7); Eosinophils % (A) 4 %; HCT 44.1 % (34.0-46.0); HGB 14.3 gm/dL (11.4-16.0); Lymphocytes # (A) 2.2 k/uL (1.0-4.8); Lymphocytes % (A) 24 %; MCH 30.3 pg (25.0-35.0); MCHC 32.5 g/dL (31.0-37.0); MCV 93.3 fL (80.0-100.0); Mean Platelet Volume 6.8; Monocytes # (A) 0.5 k/uL (0-1.0); Monocytes % (A) 5 %; Neutrophils # (A) 6.2 k/uL (1.3-7.7); Neutrophils % (A) 65 %; Platelet Count 219 k/uL (150-450); RBC 4.72 m/uL (3.80-5.40); RDW 13.7 % (11.5-15.5); WBC 9.5 k/uL (3.8-10.6)
[2018-10-24 13:18] LABS: ALT 24 U/L (9-52); AST 22 U/L (14-36); Albumin 3.2 g/dL (3.5-5.0); Alkaline Phosphatase 113 U/L (38-126); Anion Gap 5 mmol/L; Blood Urea Nitrogen 13 mg/dL (7-17); Calcium 8.7 mg/dL (8.4-10.2); Carbon Dioxide 24 mmol/L (22-30); Chloride 112 mmol/L (98-107); Glucose 89 mg/dL (74-99); Sodium 141 mmol/L (137-145); Total Bilirubin 0.6 mg/dL (0.2-1.3); Total Protein 5.5 g/dL (6.3-8.2)
[2018-10-24 13:22] LABS: Partial Thromboplastin Time 22.7 sec (22.0-30.0); Prothrombin Time 10.6 sec (9.0-12.0)
--- NOTE | 2018-10-24 13:25 | CT ---
EXAMINATION TYPE: CT thor lumbar spine wo con DATE OF EXAM: 10/24/2018 COMPARISON: None HISTORY: Low back pain CT DLP: 574.2 mGycm Automated exposure control for dose reduction was used. FINDINGS: Exam is markedly limited. Assessment spinal canal nondiagnostic due to artifact and resolution. There is diffuse osteopenia. There is degenerative disc disease at all levels. At L2 there is a moderate to severe compression fracture. Mild posterior retropulsion of about 5%. Mi ld effacement of thecal sac. Finding appears acute. There is a superior endplate compression fracture of T11 and T12. T11 mild compression fracture with approximate 5% retropulsion appears recent. Multilevel vertebral body hemangiomas are seen. There is multilevel facet arthropathy in a scoliotic curvature of the spine. Biapical pleural thicken ing is seen and there is emphysematous changes involving the lungs. There is a nodule within the righ t lower lobe measuring 6 mm. Calcified granuloma right upper lobe medial aspect near the lung apex. At L4-L5 there is facet arthropathy and disc protrusion with facet arthropathy result in bilateral fo raminal encroachment and canal stenosis. Paracentral disc extrusion not excluded correlate with MRI. Disc bulging and hypertrophic change of facet ligament flavum L3-L4 and L2-L3 results and suspected c anal stenosis and bilateral foraminal encroachment. Aorta of normal caliber. Previous gallbladder surgery noted. There is dense coronary artery calcifica tion. 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 IMPRESSION: 1. Moderate to severe compression fracture L2 appears acute with retropulsion measuring approximately 5%. 2. Superior endplate compression fracture T12 and T11 which appears acute at the T11 level. Retropuls ion as discussed above. 3. Multilevel degenerative disc disease with hypertrophic changes and disc bulging result in multilev el canal stenosis. MRI is recommended. #4 there is a 6 mm right lower lobe pulmonary nodule. Short-te rm follow-up CT of the chest is recommended. 4. COPD 5. Coronary artery calcification. 6. there is a cystic lesion within the left adnexal region which may be related to the ovary but othe r etiologies not excluded measures 2.1 cm. Recommend pelvic ultrasound.
[2018-10-24] MEDS ORDERED: IBUPROFEN 400 MG TAB PO PRN (14:11)
[2018-10-24] MEDS ORDERED: MORPHINE SULFATE 2 MG/ML SYRINGE IV PRN (14:11)
[2018-10-24] MEDS ORDERED: NALOXONE 0.4 MG/ML 1 ML VIAL IV PRN (14:11)
[2018-10-24] MEDS ORDERED: HYDROcodone/APAP 5-325MG 1 EACH TAB PO PRN (14:11)
[2018-10-24] MEDS: SODIUM CHLORIDE 0.9% 1,000 ML IV SCH (14:59)
--- NOTE | 2018-10-24 15:07 | ED ---
Medical Decision Making - Lab Data Result diagrams: 10/24/18 12:55 10/24/18 12:55 Lab Results 10/24/18 10/24/18 10/24/18 Range/Units 12:20 12:55 12:55 WBC 9.5 (3.8-10.6) k/uL RBC 4.72 (3.80-5.40) m/uL Hgb 14.3 (11.4-16.0) gm/dL Hct 44.1 (34.0-46.0) % MCV 93.3 (80.0-100.0) fL MCH 30.3 (25.0-35.0) pg MCHC 32.5 (31.0-37.0) g/dL RDW 13.7 (11.5-15.5) % Plt Count 219 (150-450) k/uL Neutrophils % 65 % Lymphocytes % 24 % Monocytes % 5 % Eosinophils % 4 % Basophils % 0 % Neutrophils # 6.2 (1.3-7.7) k/uL Lymphocytes # 2.2 (1.0-4.8) k/uL Monocytes # 0.5 (0-1.0) k/uL Eosinophils # 0.4 (0-0.7) k/uL Basophils # 0.0 (0-0.2) k/uL PT (9.0-12.0) sec INR (<1.2) APTT (22.0-30.0) sec Sodium 141 (137-145) mmol/L Potassium 4.0 (3.5-5.1) mmol/L Chloride 112 H (98-107) mmol/L Carbon Dioxide 24 (22-30) mmol/L Anion Gap 5 mmol/L BUN 13 (7-17) mg/dL Creatinine 0.48 L (0.52-1.04) mg/dL Est GFR (CKD-EPI)AfAm >90 (>60 ml/min/1.73 sqM) Est GFR (CKD-EPI)NonAf >90 (>60 ml/min/1.73 sqM) Glucose 89 (74-99) mg/dL Calcium 8.7 (8.4-10.2) mg/dL Total Bilirubin 0.6 (0.2-1.3) mg/dL AST 22 (14-36) U/L ALT 24 (9-52) U/L Alkaline Phosphatase 113 (38-126) U/L Troponin I (0.000-0.034) ng/mL Total Protein 5.5 L (6.3-8.2) g/dL Albumin 3.2 L (3.5-5.0) g/dL Urine Color Colorless Urine Appearance Clear (Clear) Urine pH 7.5 (5.0-8.0) Ur Specific [place] 1.005 (1.001-1.035) Urine Protein Negative (Negative) Urine Glucose (UA) Negative (Negative) Urine Ketones Negative (Negative) Urine Blood Negative (Negative) Urine Nitrite Negative (Negative) Urine Bilirubin Negative (Negative) Urine Urobilinogen <2.0 (<2.0) mg/dL Ur Leukocyte Esterase Negative (Negative) 10/24/18 10/24/18 Range/Units 12:55 12:55 WBC (3.8-10.6) k/uL RBC (3.80-5.40) m/uL Hgb (11.4-16.0) gm/dL Hct (34.0-46.0) % MCV (80.0-100.0) fL MCH (25.0-35.0) pg MCHC (31.0-37.0) g/dL RDW (11.5-15.5) % Plt Count (150-450) k/uL Neutrophils % % Lymphocytes % % Monocytes % % Eosinophils % % Basophils % % Neutrophils # (1.3-7.7) k/uL Lymphocytes # (1.0-4.8) k/uL Monocytes # (0-1.0) k/uL Eosinophils # (0-0.7) k/uL Basophils # (0-0.2) k/uL PT 10.6 (9.0-12.0) sec INR 1.0 (<1.2) APTT 22.7 (22.0-30.0) sec Sodium (137-145) mmol/L Potassium (3.5-5.1) mmol/L Chloride (98-107) mmol/L Carbon Dioxide (22-30) mmol/L Anion Gap mmol/L BUN (7-17) mg/dL Creatinine (0.52-1.04) mg/dL Est GFR (CKD-EPI)AfAm (>60 ml/min/1.73 sqM) Est GFR (CKD-EPI)NonAf (>60 ml/min/1.73 sqM) Glucose (74-99) mg/dL Calcium (8.4-10.2) mg/dL Total Bilirubin (0.2-1.3) mg/dL AST (14-36) U/L ALT (9-52) U/L Alkaline Phosphatase (38-126) U/L Troponin I <0.012 (0.000-0.034) ng/mL Total Protein (6.3-8.2) g/dL Albumin (3.5-5.0) g/dL Urine Color Urine Appearance (Clear) Urine pH (5.0-8.0) Ur Specific [place] (1.001-1.035) Urine Protein (Negative) Urine Glucose (UA) (Negative) Urine Ketones (Negative) Urine Blood (Negative) Urine Nitrite (Negative) Urine Bilirubin (Negative) Urine Urobilinogen (<2.0) mg/dL Ur Leukocyte Esterase (Negative) - EKG Data -: EKG Interpreted by Me (and dr wilcox) EKG Comments: 1) ventricular rate 88, CA interval 154, QRS 78, QT/QTc 400/44. Normal sinus rhythm, normal EKG, no concerns for acute ischemia. 2) ventricular rate 89 CA interval 164, QRS 76, QT/QTC 392/476. Normal sinus rhythm, no concerns for acute ischemia. Disposition Clinical Impression: Compression fracture Disposition: ADMITTED IP TO THIS [facility] Condition: Serious Is patient prescribed a controlled substance at d/c from ED?: No
[2018-10-24] MEDS: ONDANSETRON 4 MG/2 ML VIAL IVP PRN (15:58)
[2018-10-24] MEDS: KETOROLAC 30 MG/ML 1 ML VIAL IVP PRN ×2 (15:59→23:27)
[2018-10-24 16:17] VITALS: BMI 17.6
[2018-10-24] MEDS: PANTOPRAZOLE 40 MG TABLET PO SCH (17:31)
--- NOTE | 2018-10-24 18:16 | P.HPIM ---
History of Present Illness 72-year-old female the came in with complains of back pain and patient is unable to take care of herself at home has problems getting out of the bathtub. Patient denied any weakness in both legs patient does have some dull pain going behind the legs. Denied any paresthesias. She had a compression fracture at the L2 and T12 and T11. Patient is admitted for placement patient will definitely require placement as patient cannot take care of herself. We will order TL CO brace pain management with nonsteroidal anti-inflammatory medication patient does have history of COPD did use steroids in the past. Patient does not have any red flag signs or weakness in both legs or loss of bladder or bowel incontinence doesn't have any pneumonia at this time. Review of Systems REVIEW OF SYSTEMS: CONSTITUTIONAL: No fever, no malaise, no fatigue. HEENT: No recent visual problems or hearing problems. Denied any sore throat. CARDIOVASCULAR: No chest pain, orthopnea, PND, no palpitations, no syncope. PULMONARY: No shortness of breath, no cough, no hemoptysis. GASTROINTESTINAL: No diarrhea, no nausea, no vomiting, no abdominal pain. NEUROLOGICAL: No headaches, no weakness, no numbness. HEMATOLOGICAL: Denies any bleeding or petechiae. GENITOURINARY: Denies any burning micturition, frequency, or urgency. MUSCULOSKELETAL/RHEUMATOLOGICAL: As mentioned in HPI ENDOCRINE: Denies any polyuria or polydipsia. The rest of the 14-point review of systems is negative. Past Medical History Past Medical History: COPD, Hypertension, Thyroid Disorder Additional Past Medical History / Comment(s): colitis, OP History of Any Multi-Drug Resistant Organisms: None Reported Past Surgical History: Cholecystectomy, Hysterectomy Additional Past Surgical History / Comment(s): throidectomy Past Anesthesia/Blood Transfusion Reactions: No Reported Reaction Past Psychological History: No Psychological Hx Reported Smoking Status: Former smoker Past Alcohol Use History: None Reported Past Drug Use History: None Reported - Past Family History Father Family Medical History: No Reported History Mother Family Medical History: Hypertension Medications and Allergies Home Medications Medication Instructions Recorded Confirmed Type Losartan Potassium 50 mg PO DAILY 10/24/18 10/24/18 History Allergies Allergy/AdvReac Type Severity Reaction Status Date / Time iodine Allergy Anaphylaxis Verified 10/24/18 14:00 peanut Allergy Anaphylaxis Verified 10/24/18 14:00 Penicillins Allergy Anaphylaxis Verified 10/24/18 14:00 lactose AdvReac Nausea & Verified 10/24/18 14:00 Vomiting & Diarrhea Physical Exam Vitals: Vital Signs Temp Pulse Pulse Resp BP BP Pulse Ox 10/24/18 15:43 98 F 95 18 160/91 97 10/24/18 14:27 90 19 154/89 98 10/24/18 13:35 85 19 122/70 98 10/24/18 12:35 196/120 10/24/18 11:49 99.2 F 96 20 200/121 98 Intake and Output 10/24/18 10/24/18 10/24/18 06:59 14:59 22:59 Other: # Voids 1 Weight 45.359 kg PHYSICAL EXAMINATION: GENERAL: The patient is alert and oriented x3, not in any acute distress. Well developed, well nourished. HEENT: Pupils are round and equally reacting to light. EOMI. No scleral icterus. No conjunctival pallor. Normocephalic, atraumatic. No pharyngeal erythema. No thyromegaly. CARDIOVASCULAR: S1 and S2 present. No murmurs, rubs, or gallops. PULMONARY: Chest is clear to auscultation, no wheezing or crackles. ABDOMEN: Soft, nontender, nondistended, normoactive bowel sounds. No palpable organomegaly. MUSCULOSKELETAL: Lazo the thoracal lumbar spine area and patient the is having severe pain with moving her legs. EXTREMITIES: No cyanosis, clubbing, or pedal edema. NEUROLOGICAL: Gross neurological examination did not reveal any focal deficits. SKIN: No rashes. Results CBC & Chem 7: 10/24/18 12:55 10/24/18 12:55 Labs: Abnormal Lab Results - Last 24 Hours (Table) 10/24/18 Range/Units 12:55 Chloride 112 H (98-107) mmol/L Creatinine 0.48 L (0.52-1.04) mg/dL Total Protein 5.5 L (6.3-8.2) g/dL Albumin 3.2 L (3.5-5.0) g/dL Thrombosis Risk Factor Assmnt - Choose All That Apply Any of the Below Risk Factors Present?: Yes Each Factor Represents 1 point: Abnormal pulmonary function (COPD) Other Risk Factors: Yes Each Risk Factor Represents 2 Points: Age 61-74 years Other congenital or acquired thrombophilia - If yes, enter type in comment: No Thrombosis Risk Factor Assessment Total Risk Factor Score: 3 Thrombosis Risk Factor Assessment Level: Moderate Risk Assessment and Plan Plan: -Compression fracture at the 11, T12 and L2: Probably because of her steroid use in the past COPD TLSO brace, anti-inflammatory medications with GI prophylaxis PT and OT consultation placement to subacute rehabilitation most probably tomorrow or Saturday -COPD without any acute exacerbation -Hypertension and patient will be resumed on losartan -Patient will need pharmacologic due to prophylaxis as well as GI prophylaxis
[2018-10-24] MEDS: HEPARIN SODIUM,PORCINE 5,000 UNIT/ML 1 ML VIAL SQ SCH (20:37)
[2018-10-24] MEDS: FAMOTIDINE 20 MG TAB PO SCH (20:37)
[2018-10-24] MEDS: SYMBICORT 80-4.5 MCG INHALER INHALATION SCH (20:37)
[2018-10-25] MEDS: ACETAMINOPHEN TAB 500 MG TAB PO PRN ×2 (03:19→16:43)
[2018-10-25] MEDS: IPRATROPIUM-ALBUTEROL 3 ML NEB INHALATION PRN ×2 (08:39→12:29)
[2018-10-25] MEDS: SYMBICORT 80-4.5 MCG INHALER INHALATION SCH ×3 (08:39→20:01)
[2018-10-25] MEDS: KETOROLAC 30 MG/ML 1 ML VIAL IVP PRN ×3 (08:41→21:32)
[2018-10-25] MEDS: PANTOPRAZOLE 40 MG TABLET PO SCH ×2 (08:42→16:45)
[2018-10-25] MEDS: LOSARTAN 50 MG TAB PO SCH (08:42)
[2018-10-25] MEDS: HEPARIN SODIUM,PORCINE 5,000 UNIT/ML 1 ML VIAL SQ SCH ×2 (08:42→21:32)
[2018-10-25] MEDS: FAMOTIDINE 20 MG TAB PO SCH ×2 (08:42→21:32)
--- NOTE | 2018-10-25 13:03 | P.CNOR ---
History of Present Illness - [facility] Consult date: 10/25/18 Requesting physician: Alec Beard Consult reason: fracture (Compression fracture deformities at T11, T12, and L2) , low back pain, back pain (Thoracic) History of present illness: Patient is a very pleasant 72-year-old female who is seen and examined at bedside with her family present for further evaluation of her thoracolumbar spine. Patient was admitted to the hospital previously on 08/27/2018 and treated for pneumonia. At that time she began to experience some increased thoracic and lumbar pain while getting out of bed which was not severe. She was discharged on 09/04/2018. Since that time she feels her pain has been worsening. She presented to the emergency department yesterday, 10/24/2018 as her pain became uncontrollable. She denies any specific injuries. She has not sustained any falls. She does admit to osteoporosis. CT of the thoracic and lumbar spine was taking during her presentation is emergency department showed evidence of multiple compression fracture deformities at T11, T12, and L2. Patient denies any lower extremity weakness or radiculopathy bilaterally. She states her thoracolumbar pain is severe. She has pain with any movements of the thoracolumbar spine. Her pain is exacerbated with coughing and sneezing. Medicine is planning for the patient to remain in the hospital at least for the weekend with plans for discharge to a rehabilitation facility as patient is having difficulty getting care of herself at home. Past Medical History Past Medical History: COPD, Hypertension, Thyroid Disorder Additional Past Medical History / Comment(s): colitis, OP History of Any Multi-Drug Resistant Organisms: None Reported Past Surgical History: Cholecystectomy, Hysterectomy Additional Past Surgical History / Comment(s): throidectomy Past Anesthesia/Blood Transfusion Reactions: No Reported Reaction Past Psychological History: No Psychological Hx Reported Smoking Status: Former smoker Past Alcohol Use History: None Reported Past Drug Use History: None Reported - Past Family History Father Family Medical History: No Reported History Mother Family Medical History: Hypertension Medications and Allergies Home Medications Medication Instructions Recorded Confirmed Type Losartan Potassium 50 mg PO DAILY 10/24/18 10/24/18 History Allergies Allergy/AdvReac Type Severity Reaction Status Date / Time iodine Allergy Anaphylaxis Verified 10/24/18 14:00 peanut Allergy Anaphylaxis Verified 10/24/18 14:00 Penicillins Allergy Anaphylaxis Verified 10/24/18 14:00 lactose AdvReac Nausea & Verified 10/24/18 14:00 Vomiting & Diarrhea Physical Examination Physical exam: Patient is awake, alert, and oriented 3 Vital signs stable Good chest excursion with deep inspiration and expiration Examination of lumbar spine reveals skin is intact with no abrasions, lacerations, or bruises; no erythema, purulence or signs of infection Significant pain with palpation along the midline of the lower thoracic spine and upper lumbar spine Increased thoracolumbar pain with rolling over in bed Dorsiflexion, plantarflexion, and extensor hallucis longus positive sustained bilaterally Lower extremity strength 5/5 bilaterally except for some difficulty with hip flexion bilaterally Patellar reflex 2+ bilaterally No lower extremity hyperreflexia bilaterally Straight leg test negative bilateral lower extremities No signs or symptoms of DVT; no calf pain No pain with internal and external rotation of the hips bilaterally Neurovascularly intact Results Pertinent studies: CT of the thoracic and lumbar spine taken on 10/24/2018: T11 superior endplate compression fracture deformity with approximately 5% to 10% height loss; T12 compression fracture deformity with approximately 10% to 15% height loss; L2 significant compression fracture deformity with approximately 50% height loss; multilevel facet arthropathy; scoliotic curvature; lumbar degenerative scoliosis ; L4-5 disc protrusion and facet arthropathy resulting in bilateral neural foraminal encroachment and central canal stenosis; L2-3 and L3-4 facet hypertrophy and disc bulging with suspected central canal stenosis and bilateral foraminal encroachment; multilevel degenerative disc disease; COPD; right lower lobe pulmonary nodule recommended short-term follow-up CT of the chest - Labs Labs: Abnormal Lab Results - Last 24 Hours (Table) 10/24/18 Range/Units 12:55 Chloride 112 H (98-107) mmol/L Creatinine 0.48 L (0.52-1.04) mg/dL Total Protein 5.5 L (6.3-8.2) g/dL Albumin 3.2 L (3.5-5.0) g/dL H & H 10/24/18 Range/Units 12:55 Hgb 14.3 (11.4-16.0) gm/dL Hct 44.1 (34.0-46.0) % Coagulation 10/24/18 Range/Units 12:55 INR 1.0 (<1.2) Result Diagrams: 10/24/18 12:55 10/24/18 12:55 Assessment and Plan Assessment: Assessment: L2 acute compression fracture deformity T12 acute compression fracture deformity T11 acute compression fracture deformity Thoracic and lumbar back pain Osteoporosis Lumbar degenerative disc disease Lumbar facet arthropathy Lumbar central canal stenosis Lumbar degenerative disc disease COPD Right lower lobe pulmonary nodule Hypertension (1) Nontraumatic compression fracture of T12 vertebra Current Visit: Yes Status: Acute Code(s): M48.54XA - COLLAPSED VERTEBRA, NEC , THORACIC REGION, INIT SNOMED Code(s): 042666002 (2) Nontraumatic compression fracture of T11 vertebra Current Visit: Yes Status: Acute Code(s): M48.54XA - COLLAPSED VERTEBRA, NEC , THORACIC REGION, INIT SNOMED Code(s): 145176870 (3) Nontraumatic compression fracture of L2 vertebra Current Visit: Yes Status: Acute Code(s): M48.56XA - COLLAPSED VERTEBRA, NEC , LUMBAR REGION, INIT SNOMED Code(s): 931813712 (4) Osteoporosis Current Visit: Yes Status: Acute Code(s): M81.0 - AGE-RELATED OSTEOPOROSIS W /O CURRENT PATHOLOGICAL FRACTURE SNOMED Code(s): 00896404 (5) Thoracolumbar back pain Current Visit: Yes Status: Acute Code(s): M54.5 - LOW BACK PAIN; M54.6 - PAIN IN THORACIC SPINE SNOMED Code(s): 888026614 (6) Lumbar degenerative disc disease Current Visit: Yes Status: Acute Code(s): M51.36 - OTHER INTERVERTEBRAL DISC DEGENERATION, LUMBAR REGION SNOMED Code(s): 92674281 (7) Lumbar facet arthropathy Current Visit: Yes Status: Acute Code(s): M47.816 - SPONDYLOSIS W/O MYELOPATHY OR RADICULOPATHY, LUMBAR REGION SNOMED Code(s): 711036175 (8) Lumbar stenosis Current Visit: Yes Status: Acute Code(s): M48.061 - SPINAL STENOSIS, LUMBAR REGION WITHOUT NEUROGENIC LUDMILA SNOMED Code(s): 36846634 (9) Right lower lobe pulmonary nodule Current Visit: Yes Status: Acute Code(s): R91.1 - SOLITARY PULMONARY NODULE SNOMED Code(s): 722891076 (10) COPD (chronic obstructive pulmonary disease) Current Visit: No Status: Acute Code(s): J44.9 - CHRONIC OBSTRUCTIVE PULMONARY DISEASE, UNSPECIFIED SNOMED Code(s): 70476683 (11) Hypertension Current Visit: No Status: Acute Code(s): I10 - ESSENTIAL (PRIMARY) HYPERTENSION SNOMED Code(s): 59361334 Plan: Plan: 1. After reviewing imaging, physical examination of the patient, and further discussion with the patient, we'll currently plan to continue with conservative treatment in regards to her multiple compression fracture deformities at T11, T12, and L2. A prescription has been written, signed, and provided to case management for a Spinomed TLSO brace. This brace will plan to be delivered today by [employer]. Once this brace has been delivered and fitted appropriately, brace should be worn while sitting upright at greater than 45, during ambulation, and during increased activities. Brace does not have to worn while lying in bed or while bathing. Once this brace has been delivered and fitted appropriately, patient will be clear for discharge from orthopedic spine standpoint. Following discharge patient may follow-up with Esau Delacruz PA-C or Dr. Andrea Valero at [facility] in approximately 2-3 weeks for further evaluation. 2. Patient will continue to be seen and examined by medicine for her other medical diagnoses including COPD and right lower lobe pulmonary nodule; patient may continue with medicine as prescribed for pain control including Toradol and Tylenol Time with Patient: Greater than 30 (Including obtaining history, physical examination, reviewing of imaging, and dictation.)
--- NOTE | 2018-10-25 14:04 | XR ---
EXAMINATION TYPE: XR chest 1V portable DATE OF EXAM: 10/25/2018 CLINICAL HISTORY: Extended care facility placement. TECHNIQUE: Single AP portable semiupright view of the chest is obtained. COMPARISON: Chest x-ray from September 01, 2018 FINDINGS: There is chronic parenchymal change with interval resolution of bibasilar opacities. There is no new suspicious focal airspace opacity, pleural effusion, or pneumothorax seen bilaterally on c urrent study. Osseous structures are demineralized. Underlying scoliosis is redemonstrated. Cardiac s ilhouette size is stable and within normal limits with atherosclerotic change in the thoracic aorta. Cholecystectomy clips are noted. IMPRESSION: Chronic parenchymal changes without acute pulmonary process on current study.
[2018-10-25] MEDS: SODIUM CHLORIDE 0.9% 1,000 ML IV SCH (14:58)
--- NOTE | 2018-10-25 16:02 | P.PN ---
Subjective Patient is admitted for compression fracture. Patient will be discharged to subacute rehabilitation when the patient is still complaining of pain patient will have TLSO brace today. Can you pain management. Constitutional: Denied any fatigue denied any fever. Cardio vascular: denied any chest pain, palpitations Gastrointestinal denied any nausea vomiting Pulmonary: Denied any shortness of breath cough Neurologic denied any new focal deficits All inpatient medications were reviewed and appropriate changes in these medications as dictated in the interval history and assessment and plan. Objective - Vital Signs Vital signs: Vital Signs Temp 97.9 F 10/25/18 11:55 Pulse 81 10/25/18 12:44 Resp 16 10/25/18 11:55 BP 168/91 10/25/18 11:55 Pulse Ox 96 10/25/18 11:55 Intake & Output 10/24/18 10/25/18 10/25/18 18:59 06:59 18:59 Intake Total 1260 160 Balance 1260 160 Weight 45.359 kg 45.359 kg Intake: Intake, IV Titration 240 160 Amount Sodium Chloride 0.9% 1, 240 160 000 ml @ 20 mls/hr IV . Q24H [facility] Rx#:[id number] Oral 1020 Other: Voiding Method Bedpan # Voids 1 3 1 - Exam PHYSICAL EXAMINATION: GENERAL: The patient is alert and oriented x3, not in any acute distress. Well developed, well nourished. HEENT: Pupils are round and equally reacting to light. EOMI. No scleral icterus. No conjunctival pallor. Normocephalic, atraumatic. No pharyngeal erythema. No thyromegaly. CARDIOVASCULAR: S1 and S2 present. No murmurs, rubs, or gallops. PULMONARY: Chest is clear to auscultation, no wheezing or crackles. ABDOMEN: Soft, nontender, nondistended, normoactive bowel sounds. No palpable organomegaly. MUSCULOSKELETAL: Lazo the thoracal lumbar spine area and patient the is having severe pain with moving her legs. EXTREMITIES: No cyanosis, clubbing, or pedal edema. NEUROLOGICAL: Gross neurological examination did not reveal any focal deficits. SKIN: No rashes. - Labs CBC & Chem 7: 10/24/18 12:55 10/24/18 12:55 Assessment and Plan Plan: -Compression fracture at the 11, T12 and L2: Probably because of her steroid use in the past COPD TLSO brace, anti-inflammatory medications with GI prophylaxis PT and OT consultation placement to subacute rehabilitation most probably Saturday -COPD without any acute exacerbation -Hypertension and patient will be resumed on losartan -Patient will need pharmacologic due to prophylaxis as well as GI prophylaxis
[2018-10-26] MEDS: KETOROLAC 30 MG/ML 1 ML VIAL IVP PRN ×2 (04:19→11:38)
[2018-10-26] MEDS: ACETAMINOPHEN TAB 500 MG TAB PO PRN (05:06)
[2018-10-26] MEDS: HEPARIN SODIUM,PORCINE 5,000 UNIT/ML 1 ML VIAL SQ SCH ×2 (07:57→20:45)
[2018-10-26] MEDS: PANTOPRAZOLE 40 MG TABLET PO SCH ×2 (07:58→17:16)
[2018-10-26] MEDS: LOSARTAN 50 MG TAB PO SCH (07:58)
[2018-10-26] MEDS: FAMOTIDINE 20 MG TAB PO SCH ×2 (07:58→20:45)
[2018-10-26] MEDS: ONDANSETRON 4 MG/2 ML VIAL IVP PRN ×2 (08:06→14:17)
[2018-10-26] MEDS: IPRATROPIUM-ALBUTEROL 3 ML NEB INHALATION PRN (08:54)
[2018-10-26] MEDS: SYMBICORT 80-4.5 MCG INHALER INHALATION SCH ×3 (08:56→19:46)
[2018-10-26] MEDS ORDERED: LOSARTAN 50 MG TAB PO STA (12:31)
[2018-10-26] MEDS: HYDROcodone/APAP 5-325MG 1 EACH TAB PO PRN ×2 (12:42→20:46)
--- NOTE | 2018-10-26 13:29 | P.PN ---
Subjective Patient is admitted for compression fracture. Patient will be discharged to subacute rehabilitation when the patient is still complaining of pain patient will have TLSO brace today. Can you pain management. 10/26/2018 Patient is still complaining of significant pain in the back patient's Toradol will be increased to 30 mg every 6 hourly, we'll also start her on [place] and send him for constipation from [place] Constitutional: Denied any fatigue denied any fever. Cardio vascular: denied any chest pain, palpitations Gastrointestinal denied any nausea vomiting Pulmonary: Denied any shortness of breath cough Neurologic denied any new focal deficits All inpatient medications were reviewed and appropriate changes in these medications as dictated in the interval history and assessment and plan. Objective - Vital Signs Vital signs: Vital Signs Temp 98.2 F 10/26/18 11:32 Pulse 69 10/26/18 11:32 Resp 18 10/26/18 11:32 BP 167/101 10/26/18 11:32 Pulse Ox 98 10/26/18 11:32 Intake & Output 10/25/18 10/26/18 10/26/18 18:59 06:59 18:59 Intake Total 160 1320 Balance 160 1320 Weight 45.359 kg Intake: Intake, IV Titration 160 240 Amount Sodium Chloride 0.9% 1, 160 240 000 ml @ 20 mls/hr IV . Q24H [facility] Rx#:[id number] Oral 1080 Other: Voiding Method Bedpan # Voids 1 3 - Exam PHYSICAL EXAMINATION: GENERAL: The patient is alert and oriented x3, not in any acute distress. Well developed, well nourished. HEENT: Pupils are round and equally reacting to light. EOMI. No scleral icterus. No conjunctival pallor. Normocephalic, atraumatic. No pharyngeal erythema. No thyromegaly. CARDIOVASCULAR: S1 and S2 present. No murmurs, rubs, or gallops. PULMONARY: Chest is clear to auscultation, no wheezing or crackles. ABDOMEN: Soft, nontender, nondistended, normoactive bowel sounds. No palpable organomegaly. MUSCULOSKELETAL: Lazo the thoracal lumbar spine area and patient the is having severe pain with moving her legs. EXTREMITIES: No cyanosis, clubbing, or pedal edema. NEUROLOGICAL: Gross neurological examination did not reveal any focal deficits. SKIN: No rashes. - Labs CBC & Chem 7: 10/24/18 12:55 10/24/18 12:55 Assessment and Plan Plan: -Compression fracture at the 11, T12 and L2: Probably because of her steroid use in the past COPD TLSO brace, anti-inflammatory medications with GI prophylaxis PT and OT consultation placement to subacute rehabilitation most probably Saturday -COPD without any acute exacerbation -Hypertension and patient will be resumed on losartan, blood pressure continues to be high increase the dose of losartan. Increase in blood pressure partly from pain -Patient will need pharmacologic due to prophylaxis as well as GI prophylaxis
[2018-10-26] MEDS: SODIUM CHLORIDE 0.9% 1,000 ML IV SCH (14:18)
--- NOTE | 2018-10-26 16:25 | P.PN ---
Progress Note - Text Progress Note Date: 10/26/18 Patient is a very pleasant 72-year-old female who is seen and examined at bedside for follow-up evaluation of her thoracolumbar spine. Patient was admitted to the hospital previously on 08/27/2018 and treated for pneumonia. At that time she began to experience some increased thoracic and lumbar pain while getting out of bed which was not severe. She was discharged on 2018. Since that time she feels her pain has been worsening. She presented to the emergency department on 10/24/2018 as her pain became uncontrollable. She denies any specific injuries. She has not sustained any falls. She does admit to osteoporosis. CT of the thoracic and lumbar spine was taken during her presentation to the emergency department and showed evidence of multiple compression fracture deformities at T11, T12, and L2. Patient denies any lower extremity weakness or radiculopathy bilaterally. She has not had any improvement of her symptoms since being seen and examined yeserday. She continues to state her thoracolumbar pain is severe. She has pain with any movements of the thoracolumbar spine. Her pain is exacerbated with coughing and sneezing. Medicine is planning for the patient to remain in the hospital at least for the weekend with plans for discharge to a rehabilitation facility as patient is having difficulty getting care of herself at home. Since being seen and examined yesterday a Spinomed TLSO brace has been delivered and fitted appropriately. She was able to transfer to a bedside chair yesterday. Physical exam: Patient is awake, alert, and oriented 3 Vital signs stable Good chest excursion with deep inspiration and expiration Examination of lumbar spine reveals skin is intact with no abrasions, lacerations, or bruises; no erythema, purulence or signs of infection Significant pain with palpation along the midline of the lower thoracic spine and upper lumbar spine; Pain is more significant at the lumbar spine today Increased thoracolumbar pain with rolling over in bed Dorsiflexion, plantarflexion, and extensor hallucis longus positive sustained bilaterally Lower extremity strength 5/5 bilaterally except for some difficulty with hip flexion bilaterally Patellar reflex 2+ bilaterally No lower extremity hyperreflexia bilaterally Straight leg test negative bilateral lower extremities No signs or symptoms of DVT; no calf pain No pain with internal and external rotation of the hips bilaterally Neurovascularly intact Pertinent studies: CT of the thoracic and lumbar spine taken on 10/24/2018: T11 superior endplate compression fracture deformity with approximately 5% to 10% height loss; T12 compression fracture deformity with approximately 10% to 15% height loss; L2 significant compression fracture deformity with approximately 50% height loss; multilevel facet arthropathy; scoliotic curvature; lumbar degenerative scoliosis ; L4-5 disc protrusion and facet arthropathy resulting in bilateral neural foraminal encroachment and central canal stenosis; L2-3 and L3-4 facet hypertrophy and disc bulging with suspected central canal stenosis and bilateral foraminal encroachment; multilevel degenerative disc disease; COPD; right lower lobe pulmonary nodule recommended short-term follow-up CT of the chest Assessment: L2 acute compression fracture deformity T12 acute compression fracture deformity T11 acute compression fracture deformity Thoracic and lumbar back pain Osteoporosis Lumbar degenerative disc disease Lumbar facet arthropathy Lumbar central canal stenosis Lumbar degenerative disc disease COPD Right lower lobe pulmonary nodule Hypertension Plan: 1. After reviewing imaging, physical examination of the patient, and further discussion with the patient, we will currently plan to continue with conservative treatment as previously discussed in regards to her multiple compression fracture deformities at T11, T12, and L2. A prescription has been written, signed, and provided to case management for a Spinomed TLSO brace. This brace was delivered yesterday by [employer] and fitted appropriately. We discussed this brace should be worn while sitting upright at greater than 45, during ambulation, and during increased activities. Brace does not have to worn while lying in bed or while bathing. Patient is now clear for discharge from an orthopedic spine standpoint. Following discharge patient may follow-up with Esau Delacruz PA-C or Dr. Andrea Valero at [facility] in approximately 2-3 weeks for further evaluation. 2. Patient will continue to be seen and examined by medicine for her other medical diagnoses including COPD and right lower lobe pulmonary nodule; patient may continue with medicine as prescribed for pain control including Toradol and Tylenol
[2018-10-26] MEDS ORDERED: KETOROLAC 30 MG/ML 1 ML VIAL IVP PRN (17:07)
[2018-10-26] MEDS ORDERED: ALPRAZolam 0.25 MG TAB PO ONE (17:10)
[2018-10-26] MEDS ORDERED: hydrALAZINE HCL 20 MG/ML 1 ML VIAL IVP PRN (17:10)
[2018-10-26 20:54] VITALS: RESP 16
[2018-10-27 06:27] VITALS: BP 127/75; PULSE 86; TEMP 98.4
[2018-10-27] MEDS: HYDROcodone/APAP 5-325MG 1 EACH TAB PO PRN ×3 (07:25→16:44)
[2018-10-27] MEDS: PANTOPRAZOLE 40 MG TABLET PO SCH (07:25)
[2018-10-27] MEDS: FAMOTIDINE 20 MG TAB PO SCH (07:25)
[2018-10-27] MEDS: HEPARIN SODIUM,PORCINE 5,000 UNIT/ML 1 ML VIAL SQ SCH (07:26)
[2018-10-27] MEDS ORDERED: SENNOSIDES 8.6 MG TAB PO SCH (09:00)
[2018-10-27] MEDS ORDERED: LOSARTAN 50 MG TAB PO SCH (09:00)
[2018-10-27] MEDS: SYMBICORT 80-4.5 MCG INHALER INHALATION SCH (09:20)
[2018-10-27] MEDS: ONDANSETRON 4 MG/2 ML VIAL IVP PRN (09:38)
--- NOTE | 2018-10-27 09:46 | P.DS ---
Providers Date of admission: 10/24/18 14:07 Expected date of discharge: 10/27/18 Attending physician: Tino Olvera Consults: 10/24/18 14:11 Consult Physician Stat Consulting Provider: Leatha Valero Consult Reason/Comments: Thoracic and Lumbar Compression fracture Do you want consulting provider notified?: Yes Primary care physician: Stated None Hospital Course: Final Diagnoses: -Compression fracture at the 11, T12 and L2: Probably r/t steroid use in the past for COPD. -COPD without any acute exacerbation -Hypertension Hospital course:Patient is admitted for compression fracture. Patient will be discharged to subacute rehabilitation when the patient is still complaining of pain patient will have TLSO brace today. Can you pain management. 10/26/2018 Patient is still complaining of significant pain in the back patient's Toradol will be increased to 30 mg every 6 hourly, we'll also start her on [place] and send him for constipation from [place]. Maintained on [place] in addition to anti-inflammatory medications, GI prophylaxis , TLSO brace. Significant clinical improvement. Patient has been cleared by orthopedics to discharge. Patient is being discharged to subacute rehab in a stable condition with guarded prognosis. EXAMINATION: GENERAL: The patient is alert and oriented x3, not in any acute distress. CARDIOVASCULAR: S1 and S2 present. No murmurs, rubs, or gallops. PULMONARY: Chest is clear to auscultation, no wheezing or crackles. ABDOMEN: Soft, nontender, nondistended, normoactive bowel sounds. No palpable organomegaly. NEUROLOGICAL: Gross neurological examination did not reveal any focal deficits. The impression and plan of care has been dictated as directed. : I performed a history and examination of this patient, discussed the same with the dictator. I agree with the dictator's note ,documented as a scribe. Any additional findings or plans will be noted. Time taken: 35 minutes Patient Condition at Discharge: Stable Plan - Discharge Summary New Discharge Prescriptions: New Acetaminophen Tab [Tylenol] 1,000 mg PO Q6HR PRN tab PRN Reason: Fever and/ or mild Pain Budesonide/Formoterol Fumarate [Symbicort 80-4.5 Mcg Inhaler] 2 puff INHALATION BID #1 inhaler Famotidine [Pepcid] 20 mg PO BID tab HYDROcodone/APAP 5-325MG [[place] 5-325] 1 each PO Q4HR PRN #18 tab PRN Reason: Pain Ibuprofen [Motrin] 600 mg PO Q6HR PRN #24 tab PRN Reason: Pain Ipratropium-Albuterol Nebulize [Duoneb 0.5 mg-3 mg/3 ml Soln] 3 ml INHALATION RT-QID PRN ampul.neb PRN Reason: Shortness Of Breath Or Wheezing Losartan [Cozaar] 100 mg PO DAILY tab Pantoprazole [Protonix] 40 mg PO AC-BID tablet.dr Maier [Senokot] 8.6 mg PO DAILY tab Discontinued Losartan Potassium 50 mg PO DAILY Discharge Medication List Acetaminophen Tab [Tylenol] 1,000 mg PO Q6HR PRN tab 10/27/18 [Rx] Budesonide/Formoterol Fumarate [Symbicort 80-4.5 Mcg Inhaler] 2 puff INHALATION BID #1 inhaler 10/27/18 [Rx] Famotidine [Pepcid] 20 mg PO BID tab 10/27/18 [Rx] HYDROcodone/APAP 5-325MG [[place] 5-325] 1 each PO Q4HR PRN #18 tab 10/27/18 [Rx] Ibuprofen [Motrin] 600 mg PO Q6HR PRN #24 tab 10/27/18 [Rx] Ipratropium-Albuterol Nebulize [Duoneb 0.5 mg-3 mg/3 ml Soln] 3 ml INHALATION RT -QID PRN ampul.neb 10/27/18 [Rx] Losartan [Cozaar] 100 mg PO DAILY tab 10/27/18 [Rx] Pantoprazole [Protonix] 40 mg PO AC-BID tablet. 10/27/18 [Rx] Livier [Senokot] 8.6 mg PO DAILY tab 10/27/18 [Rx] Follow up Appointment(s)/Referral(s): Esau Delacruz PAC [PHYSICIAN TESTER REGULATOR] - 2 Weeks (Patient may follow-up with Esau Delacruz PA-C or Dr. Andrea Valero at [facility] in 2-3 weeks following discharge. ) Mikhail Dee MD [REFERRING] - 1 Week (at subacute rehab) Activity/Diet/Wound Care/Special Instructions: Farzad Stern 1. Patient may wear Spinomed TLSO brace for comfort and support while sitting upright at greater than 45, while working with therapy, and while ambulating; patient does not have to wear the brace while lying in bed or bathing 2. Patient should avoid excessive bending, twisting, and lifting; no lifting greater than 10 pounds CBC, BMP in 3 days
[2018-10-27] MEDS ORDERED: ALPRAZolam 0.25 MG TAB PO STA (16:26)
== END 2018-10-27 16:45 | DRG 543 ==
LOC: EC 11:35 → 3NMEDONC 14:07
PROVIDERS: ADMIT Internal Medicine; ATTEND Internal Medicine
DX: M48.55XA Collapsed vertebra, not elsewhere classified, thoracolumbar region, initial encounter for fracture (principal); M51.06 Intervertebral disc disorders with myelopathy, lumbar region; I10 Essential (primary) hypertension; Z87.01 Personal history of pneumonia (recurrent); J44.9 Chronic obstructive pulmonary disease, unspecified; M46.96 Unspecified inflammatory spondylopathy, lumbar region; M48.061 Spinal stenosis, lumbar region without neurogenic claudication; M81.0 Age-related osteoporosis without current pathological fracture; Z82.49 Family history of ischemic heart disease and other diseases of the circulatory system; Z87.891 Personal history of nicotine dependence; Z90.710 Acquired absence of both cervix and uterus; Z90.49 Acquired absence of other specified parts of digestive tract; R91.1 Solitary pulmonary nodule; T38.0X5S Adverse effect of glucocorticoids and synthetic analogues, sequela; Z88.0 Allergy status to penicillin; Z88.8 Allergy status to other drugs, medicaments and biological substances; Z91.011 Allergy to milk products; Z91.010 Allergy to peanuts
CPT/HCPCS: 36415; 71045; 72128; 72131; 80053; 81003; 84484; 85025; 85610; 85730; 93005; 94640; 96361; 96374; 96375; 99285

== ENCOUNTER 2020-03-21 13:23 | Inpatient (IN) | payer MEDICARE, BC ==
[2020-03-21] MEDS ORDERED: SODIUM CHLORIDE 0.9% 1,000 ML IV STA (13:41)
--- NOTE | 2020-03-21 13:47 | ED ---
General Adult HPI - General Chief complaint: Fall Stated complaint: fall Time Seen by Provider: 03/21/20 13:25 Source: patient, EMS, RN notes reviewed Mode of arrival: EMS Limitations: no limitations - History of Present Illness Initial comments: Patient is a pleasant 74-year-old female presenting to the emergency department following a fall. Incident occurred around 3 in the morning. Patient was in her kitchen bending over when she lost her balance. Patient landed on her right shoulder/upper arm and has discomfort in that area. Patient states discomfort is mild now following medication by EMS. Patient also on examination admits to having some discomfort in her left hip. Patient denies any syncope. Patient denies any head injury or loss of consciousness. No neck pain. Patient does have some chronic back pain however this is chronic and unchanged. No new or worsening of back pain. No isolated area of weakness. Patient was lying on the ground all night. - Related Data Home Medications Medication Instructions Recorded Confirmed Cholecalciferol [Vitamin D3 (25 1,000 unit PO HS 03/21/20 03/21/20 Mcg = 1000 Iu)] Escitalopram Oxalate [Lexapro] 10 mg PO HS 03/21/20 03/21/20 Furosemide [Lasix] 20 mg PO BID 03/21/20 03/21/20 L.acidoph,Paracasei, B.lactis 1 cap PO HS 03/21/20 03/21/20 [Probiotic] Losartan [Cozaar] 100 mg PO HS 03/21/20 03/21/20 Magnesium Oxide 400 mg PO HS 03/21/20 03/21/20 Allergies Allergy/AdvReac Type Severity Reaction Status Date / Time iodine Allergy Anaphylaxis Verified 03/21/20 14:15 peanut Allergy Anaphylaxis Verified 03/21/20 14:15 Penicillins Allergy Anaphylaxis Verified 03/21/20 14:15 lactose AdvReac Nausea & Verified 03/21/20 14:15 Vomiting & Diarrhea Review of Systems ROS Statement: Those systems with pertinent positive or pertinent negative responses have been documented in the HPI. ROS Other: All systems not noted in ROS Statement are negative. Constitutional: Denies: fever Eyes: Denies: eye pain ENT: Denies: ear pain Respiratory: Denies: cough Cardiovascular: Denies: chest pain Endocrine: Denies: fatigue Gastrointestinal: Denies: abdominal pain Genitourinary: Denies: dysuria Musculoskeletal: Reports: as per HPI Skin: Denies: rash Neurological: Denies: headache, confusion Past Medical History Past Medical History: COPD, Hypertension, Thyroid Disorder Additional Past Medical History / Comment(s): colitis, OP History of Any Multi-Drug Resistant Organisms: None Reported Past Surgical History: Cholecystectomy, Hysterectomy Additional Past Surgical History / Comment(s): throidectomy Past Anesthesia/Blood Transfusion Reactions: No Reported Reaction Past Psychological History: No Psychological Hx Reported Smoking Status: Never smoker Past Alcohol Use History: None Reported Past Drug Use History: None Reported - Past Family History Father Family Medical History: No Reported History Mother Family Medical History: Hypertension General Exam Limitations: no limitations General appearance: alert, in no apparent distress Head exam: Present: normocephalic Eye exam: Present: normal appearance, PERRL, EOMI ENT exam: Present: mucous membranes dry Neck exam: Present: normal inspection. Absent: tenderness Respiratory exam: Present: normal lung sounds bilaterally Cardiovascular Exam: Present: tachycardia GI/Abdominal exam: Present: soft. Absent: tenderness Extremities exam: Present: tenderness (Moderate tenderness right upper humerus and left hip.), other (Social knees are neurovascularly intact) Back exam: Absent: vertebral tenderness Neurological exam: Present: alert, CN II-XII intact. Absent: motor sensory deficit (Limited range of motion right shoulder and left hip secondary to pain) Expanded Eye Response: (4) open spontaneously Motor Response: (6) obeys commands Verbal Response: (5) oriented Psychiatric exam: Present: normal affect, normal mood Skin exam: Present: normal color Course Vital Signs 03/21/20 03/21/20 03/21/20 13:40 15:21 16:04 Temperature 98.0 F 97.9 F Pulse Rate 122 H 112 H 112 H Respiratory 17 14 14 Rate Blood Pressure 143/111 111/93 98/68 O2 Sat by Pulse 96 98 98 Oximetry EKG Findings - EKG Comments: EKG Findings:: Sinus tachycardia 122. HI 124. QRS 82. QT 338. QTC 481. Normal axis. Normal QRS. No acute ST change. Medical Decision Making - Medical Decision Making Patient reevaluated and resting comfortably in bed. Heart rate varies between 105 and 120. states heart rate was as high 1:30 earlier. Patient and family updated on results and plan. Case discussed in detail with Dr. Simon, who will admit his patient. - Lab Data Result diagrams: 03/21/20 13:54 03/21/20 13:54 Lab Results 03/21/20 03/21/20 03/21/20 Range/Units 13:54 13:54 13:54 WBC 16.5 H (3.8-10.6) k/uL RBC 4.86 (3.80-5.40) m/uL Hgb 14.5 (11.4-16.0) gm/dL Hct 44.7 (34.0-46.0) % MCV 92.1 (80.0-100.0) fL MCH 29.8 (25.0-35.0) pg MCHC 32.3 (31.0-37.0) g/dL RDW 13.2 (11.5-15.5) % Plt Count 139 L (150-450) k/uL Neutrophils % 91 % Lymphocytes % 5 % Monocytes % 3 % Eosinophils % 0 % Basophils % 0 % Neutrophils # 15.1 H (1.3-7.7) k/uL Lymphocytes # 0.9 L (1.0-4.8) k/uL Monocytes # 0.5 (0-1.0) k/uL Eosinophils # 0.0 (0-0.7) k/uL Basophils # 0.0 (0-0.2) k/uL PT 11.1 (9.0-12.0) sec INR 1.1 (<1.2) APTT 24.9 (22.0-30.0) sec Sodium 140 (137-145) mmol/L Potassium 3.7 (3.5-5.1) mmol/L Chloride 110 H (98-107) mmol/L Carbon Dioxide 25 (22-30) mmol/L Anion Gap 5 mmol/L BUN 17 (7-17) mg/dL Creatinine 0.70 (0.52-1.04) mg/dL Est GFR (CKD-EPI)AfAm >90 (>60 ml/min/1.73 sqM) Est GFR (CKD-EPI)NonAf 84 (>60 ml/min/1.73 sqM) Glucose 149 H (74-99) mg/dL Plasma Lactic Acid Krishan (0.7-2.0) mmol/L Calcium 8.9 (8.4-10.2) mg/dL Phosphorus 4.1 (2.5-4.5) mg/dL Magnesium 1.8 (1.6-2.3) mg/dL Total Bilirubin 0.9 (0.2-1.3) mg/dL AST 45 H (14-36) U/L ALT 27 (4-34) U/L Alkaline Phosphatase 88 (38-126) U/L Creatine Kinase 76 (30-135) U/L Total Protein 5.6 L (6.3-8.2) g/dL Albumin 3.4 L (3.5-5.0) g/dL TSH 2.230 (0.465-4.680) mIU/L 03/21/20 Range/Units 13:54 WBC (3.8-10.6) k/uL RBC (3.80-5.40) m/uL Hgb (11.4-16.0) gm/dL Hct (34.0-46.0) % MCV (80.0-100.0) fL MCH (25.0-35.0) pg MCHC (31.0-37.0) g/dL RDW (11.5-15.5) % Plt Count (150-450) k/uL Neutrophils % % Lymphocytes % % Monocytes % % Eosinophils % % Basophils % % Neutrophils # (1.3-7.7) k/uL Lymphocytes # (1.0-4.8) k/uL Monocytes # (0-1.0) k/uL Eosinophils # (0-0.7) k/uL Basophils # (0-0.2) k/uL PT (9.0-12.0) sec INR (<1.2) APTT (22.0-30.0) sec Sodium (137-145) mmol/L Potassium (3.5-5.1) mmol/L Chloride (98-107) mmol/L Carbon Dioxide (22-30) mmol/L Anion Gap mmol/L BUN (7-17) mg/dL Creatinine (0.52-1.04) mg/dL Est GFR (CKD-EPI)AfAm (>60 ml/min/1.73 sqM) Est GFR (CKD-EPI)NonAf (>60 ml/min/1.73 sqM) Glucose (74-99) mg/dL Plasma Lactic Acid Krishan 1.5 (0.7-2.0) mmol/L Calcium (8.4-10.2) mg/dL Phosphorus (2.5-4.5) mg/dL Magnesium (1.6-2.3) mg/dL Total Bilirubin (0.2-1.3) mg/dL AST (14-36) U/L ALT (4-34) U/L Alkaline Phosphatase (38-126) U/L Creatine Kinase (30-135) U/L Total Protein (6.3-8.2) g/dL Albumin (3.5-5.0) g/dL TSH (0.465-4.680) mIU/L - Radiology Data Radiology results: image reviewed (Chest x-ray shows no acute process. X-ray of the right humerus and left hip show no acute process) Disposition Clinical Impression: Fall, Weakness, Tachycardia Disposition: ADMITTED IP TO THIS HOSP Is patient prescribed a controlled substance at d/c from ED?: No Referrals: Linus Simon DO [Primary Care Provider] - 1-2 days Decision Time: 16:18
[2020-03-21 14:11] LABS: Basophils % (A) 0 %; Eosinophils % (A) 0 %; HCT 44.7 % (34.0-46.0); HGB 14.5 gm/dL (11.4-16.0); Lymphocytes # (A) 0.9 k/uL (1.0-4.8); Lymphocytes % (A) 5 %; MCH 29.8 pg (25.0-35.0); MCHC 32.3 g/dL (31.0-37.0); MCV 92.1 fL (80.0-100.0); Mean Platelet Volume 8.2; Monocytes # (A) 0.5 k/uL (0-1.0); Monocytes % (A) 3 %; Neutrophils # (A) 15.1 k/uL (1.3-7.7); Neutrophils % (A) 91 %; Platelet Count 139 k/uL (150-450); RBC 4.86 m/uL (3.80-5.40); RDW 13.2 % (11.5-15.5); WBC 16.5 k/uL (3.8-10.6)
[2020-03-21 14:20] LABS: INR 1.1 (<1.2); Partial Thromboplastin Time 24.9 sec (22.0-30.0); Prothrombin Time 11.1 sec (9.0-12.0)
[2020-03-21 14:21] LABS: ALT 27 U/L (4-34); AST 45 U/L (14-36); African American GFR (CKD) >90 (>60 ml/min/1.73 sqM); Albumin 3.4 g/dL (3.5-5.0); Alkaline Phosphatase 88 U/L (38-126); Anion Gap 5 mmol/L; Blood Urea Nitrogen 17 mg/dL (7-17); Calcium 8.9 mg/dL (8.4-10.2); Carbon Dioxide 25 mmol/L (22-30); Chloride 110 mmol/L (98-107); Creatine Kinase 76 U/L (30-135); Glucose 149 mg/dL (74-99); Magnesium 1.8 mg/dL (1.6-2.3); Non-African American GFR(CKD) 84 (>60 ml/min/1.73 sqM); Phosphorus 4.1 mg/dL (2.5-4.5); Potassium 3.7 mmol/L (3.5-5.1); Sodium 140 mmol/L (137-145); Total Bilirubin 0.9 mg/dL (0.2-1.3); Total Protein 5.6 g/dL (6.3-8.2)
--- NOTE | 2020-03-21 15:11 | XR ---
EXAMINATION TYPE: XR chest 2V DATE OF EXAM: 03/21/2020 COMPARISON: October 25, 2018 HISTORY: Shortness of breath TECHNIQUE: Frontal and lateral views of the chest are obtained. FINDINGS: Scattered senescent parenchymal changes noted. Hyperinflation compatible with COPD. No evidence for infiltrate. No evidence for atelectasis. Heart size is stable. Mediastinal structures are stable and grossly unremarkable. No evidence for hilar prominence. Degenerative changes dorsal spine. IMPRESSION: 1. No evidence for acute pulmonary disease.
--- NOTE | 2020-03-21 15:11 | XR ---
EXAMINATION TYPE: XR humerus RT DATE OF EXAM: 03/21/2020 CLINICAL HISTORY: pain COMPARISON: NONE TECHNIQUE: Frontal and lateral images of the right humerus are obtained. FINDINGS: There is no acute fracture/dislocation evident. The joint spaces appear within normal limi ts. The overlying soft tissue appears unremarkable. IMPRESSION: There is no acute fracture or dislocation.ICD 10 NO FRACTURE, INITIAL EVALUATION
--- NOTE | 2020-03-21 15:12 | XR ---
EXAMINATION TYPE: XR Hip LT and AP Pelvis DATE OF EXAM: 03/21/2020 CLINICAL HISTORY: pain TECHNIQUE: Single view the pelvis is submitted. 2 views of the left hip are also submitted. FINDINGS: No evidence for acute fracture, dislocation or bony lesion. Chronic deformity of the infe rior pubic rami and right os pubis. Joint spaces are well-preserved. SI joints appear symmetric. IMPRESSION: 1. No acute fracture or dislocation seen. ICD 10 NO FRACTURE, INITIAL EVALUATION
[2020-03-21 15:57] LABS: Appearance,Urine Clear (Clear); Bilirubin,Urine Negative (Negative); Blood,Urine Negative (Negative); Color,Urine Yellow; Glucose,Urine (UA) Negative (Negative); Ketones,Urine Negative (Negative); Leukocyte Esterase,Urine Negative (Negative); Nitrite,Urine Negative (Negative); PH, Urine 6.5 (5.0-8.0); Protein,Urine Negative (Negative); Specific Gravity,Urine 1.013 (1.001-1.035); Urobilinogen,Urine <2.0 mg/dL (<2.0)
[2020-03-21] MEDS ORDERED: NALOXONE 0.4 MG/ML 1 ML VIAL IV PRN (16:19)
[2020-03-21] MEDS: SODIUM CHLORIDE 0.9% 1,000 ML IV SCH (18:46)
[2020-03-22] MEDS ORDERED: ACETAMINOPHEN TAB 325 MG TAB PO STA (00:16)
[2020-03-22] MEDS: SODIUM CHLORIDE 0.9% 1,000 ML IV SCH (05:15)
[2020-03-22 08:07] LABS: Calcium 8.2 mg/dL (8.4-10.2); Potassium 4.1 mmol/L (3.5-5.1)
[2020-03-22] MEDS ORDERED: SODIUM CHLORIDE 0.9% 1,000 ML IV SCH (08:45)
[2020-03-22] MEDS: METOPROLOL TARTRATE 12.5 MG TAB PO SCH ×3 (09:09→21:45)
--- NOTE | 2020-03-22 09:54 | P.CRDCN ---
History of Present Illness History of present illness: HISTORY OF PRESENTING ILLNESS This is a pleasant 74-year-old female past medical history significant for COPD, hypertension and hypothyroidism. She has no prior history of coronary artery disease. 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 We have been asked to see in consultation for tachycardia. She presented to the hospital after suffering a fall. She was apparently up in the kitchen around 3 AM and she lost her balance falling on the right side of her body. She is seen and examined sitting up in bed in no distress. She is groaning but denies discomfort anywhere. Diagnostic imaging us for has been unremarkable. She does not recall the events surrounding her fall. She is alert to name but not time place or situation. She is asking for her . Information is obtained from the medical record and the nursing staff. According to the nurse who spoke with the this is not her normal mentation. DIAGNOSTICS EKG reveals sinus tachycardia heart rate of 122. No acute ischemic abnormalities. Chest xray negative for an acute cardiopulmonary process. Laboratory reviewed, WBC 16.5, hemoglobin 14.5, platelets 139, sodium 142, potassium 4.1, creatinine 1.12, magnesium 1.8, TSH 2.23. Current cardiac medications include losartan 100 mg at bedtime and Lasix 20 mg twice a day. Most recent echocardiogram obtained August 2018 reveals preserved LV systolic function with ejection fraction 55-60%, moderate mitral calcification and borderline pulmonary hypertension. REVIEW OF SYSTEMS At the time of my exam: CONSTITUTIONAL: Denies fever or chills. CARDIOVASCULAR: Denies chest pain, shortness of breath, orthopnea, PND or palpitations. RESPIRATORY: Denies cough. GASTROINTESTINAL: Denies abdominal pain, diarrhea, constipation, nausea or vomiting. MUSCULOSKELETAL: Denies myalgias. NEUROLOGIC: Denies numbness, tingling or weakness. ENDOCRINE: Denies fatigue, weight change, polydipsia or polyurina. GENITOURINARY: Denies burning, hematuria or urgency with micturation. HEMATOLOGIC: Denies history of anemia or bleeding. PHYSICAL EXAMINATION Blood pressure 129/83 heart rate 105 afebrile and maintaining oxygen saturation on nasal cannula. CONSTITUTIONAL: No apparent distress. HEENT: Head is normocephalic. Pupils are equal, round. Sclerae anicteric. Mucous membranes of the mouth are moist. No JVD. No carotid bruit. CHEST EXAMINATION: Lungs are clear to auscultation. No chest wall tenderness is noted on palpation or with deep breathing. HEART EXAMINATION: Regular rate and rhythm. S1, S2 heard. No murmurs, gallops or rub. ABDOMEN: Soft, nontender. Positive bowel sounds. EXTREMITIES: 2+ peripheral pulses, no lower extremity edema and no calf tenderness. NEUROLOGIC EXAMINATION: Patient is awake, alert and oriented to self. ASSESSMENT Altered mental status Fall, unknown LOC Leukocytosis Acute kidney injury Sinus tachycardia Hypertension History of COPD PLAN Recommend neurology evaluation and consider brain imaging. Obtain 2-D echocardiogram and Doppler study to assess cardiac structure and function. Continue IV fluid hydration and 150 mL per hour for the next 6 hours. Repeat BMP in the morning. Initiate Lopressor 12.5 mg 3 times a day. Check troponin, blood cultures and urine culture. Thank you kindly for this consultation. Nurse Practitioner note has been reviewed, I agree with a documented findings and plan of care. Patient was seen and examined. Past Medical History Past Medical History: COPD, Hypertension, Thyroid Disorder Additional Past Medical History / Comment(s): colitis, OP History of Any Multi-Drug Resistant Organisms: None Reported Past Surgical History: Cholecystectomy, Hysterectomy Additional Past Surgical History / Comment(s): throidectomy Past Anesthesia/Blood Transfusion Reactions: No Reported Reaction Past Psychological History: No Psychological Hx Reported Smoking Status: Never smoker Past Alcohol Use History: None Reported Past Drug Use History: None Reported - Past Family History Father Family Medical History: No Reported History Mother Family Medical History: Hypertension Medications and Allergies Home Medications Medication Instructions Recorded Confirmed Type Cholecalciferol [Vitamin D3 (25 1,000 unit PO HS 03/21/20 03/21/20 History Mcg = 1000 Iu)] Escitalopram Oxalate [Lexapro] 10 mg PO HS 03/21/20 03/21/20 History Furosemide [Lasix] 20 mg PO BID 03/21/20 03/21/20 History L.acidoph,Paracasei, B.lactis 1 cap PO HS 03/21/20 03/21/20 History [Probiotic] Losartan [Cozaar] 100 mg PO HS 03/21/20 03/21/20 History Magnesium Oxide 400 mg PO HS 03/21/20 03/21/20 History Allergies Allergy/AdvReac Type Severity Reaction Status Date / Time iodine Allergy Anaphylaxis Verified 03/21/20 14:15 peanut Allergy Anaphylaxis Verified 03/21/20 14:15 Penicillins Allergy Anaphylaxis Verified 03/21/20 14:15 lactose AdvReac Nausea & Verified 03/21/20 14:15 Vomiting & Diarrhea Physical Exam Vitals: Vital Signs Temp Pulse Pulse Resp BP BP Pulse Ox 03/22/20 09:00 97.8 F 105 H 18 129/83 91 L 03/22/20 03:00 98.3 F 83 20 117/78 93 L 03/21/20 19:49 98.6 F 103 H 18 117/83 92 L 03/21/20 17:29 97.9 F 03/21/20 17:28 111 H 14 138/99 93 L 03/21/20 16:38 116 H 14 117/90 98 03/21/20 16:04 112 H 14 98/68 98 03/21/20 15:21 97.9 F 112 H 14 111/93 98 03/21/20 13:40 98.0 F 122 H 17 143/111 96 Intake and Output 03/21/20 03/22/20 03/22/20 22:59 06:59 14:59 Output Total 350 Balance -350 Output: Urine 350 Other: Voiding Method Indwelling Catheter Indwelling Catheter # Voids 0 Weight 52.163 kg Results 03/21/20 13:54 03/22/20 07:30 Cardiac Enzymes 03/21/20 Range/Units 13:54 AST 45 H (14-36) U/L Coagulation 03/21/20 Range/Units 13:54 PT 11.1 (9.0-12.0) sec APTT 24.9 (22.0-30.0) sec CBC 03/21/20 Range/Units 13:54 WBC 16.5 H (3.8-10.6) k/uL RBC 4.86 (3.80-5.40) m/uL Hgb 14.5 (11.4-16.0) gm/dL Hct 44.7 (34.0-46.0) % Plt Count 139 L (150-450) k/uL Comprehensive Metabolic Panel 03/21/20 03/22/20 Range/Units 13:54 07:30 Sodium 140 142 (137-145) mmol/L Potassium 3.7 4.1 (3.5-5.1) mmol/L Chloride 110 H 112 H (98-107) mmol/L Carbon Dioxide 25 26 (22-30) mmol/L BUN 17 25 H (7-17) mg/dL Creatinine 0.70 1.12 H (0.52-1.04) mg/dL Glucose 149 H 98 (74-99) mg/dL Calcium 8.9 8.2 L (8.4-10.2) mg/dL AST 45 H (14-36) U/L ALT 27 (4-34) U/L Alkaline Phosphatase 88 (38-126) U/L Total Protein 5.6 L (6.3-8.2) g/dL Albumin 3.4 L (3.5-5.0) g/dL Current Medications Generic Name Dose Route Start Last Admin Trade Name Freq PRN Reason Stop Dose Admin Cholecalciferol 1,000 unit 03/22/20 21:00 Vitamin D3 (25 Mcg = 1000 Iu) PO HS PRISCILLA Escitalopram Oxalate 10 mg 03/22/20 21:00 Lexapro PO HS [facility] Sodium Chloride 1,000 mls @ 150 mls/hr 03/22/20 08:45 03/22/20 09:09 Saline 0.9% IV 03/22/20 14:46 150 mls/hr .[id number] PRISCILLA Administration Losartan Potassium 100 mg 03/22/20 21:00 Cozaar PO HS PRISCILLA Magnesium Oxide 400 mg 03/22/20 21:00 Mag-Ox PO HS PRISCILLA Metoprolol Tartrate 12.5 mg 03/22/20 09:00 03/22/20 09:09 Lopressor PO 12.5 mg TID PRISCILLA Administration Naloxone HCl 0.2 mg 03/21/20 16:19 Narcan IV Q2M PRN Opioid Reversal Intake and Output 03/21/20 03/22/20 03/22/20 22:59 06:59 14:59 Output Total 350 Balance -350 Output: Urine 350 Other: Voiding Method Indwelling Catheter Indwelling Catheter # Voids 0 Weight 52.163 kg 03/21/20 13:54 03/22/20 07:30
[2020-03-22] MEDS: ASPIRIN 81 MG PO SCH (12:14)
[2020-03-22 12:18] LABS: Cholesterol 132 mg/dL (<200); HDL Cholesterol 40 mg/dL (40-60); LDL Cholesterol,Calculated 71 mg/dL (0-99); Triglycerides 105 mg/dL (<150)
[2020-03-22] MEDS: PANTOPRAZOLE 40 MG/10 ML VIAL IVP SCH (12:51)
--- NOTE | 2020-03-22 13:40 | ECHOF ---
Referral Reason:fall, questionable syncope MEASUREMENTS -------- HEIGHT: 160.0 cm WEIGHT: 52.2 kg BP: 117/78 RVIDd: 3.9 cm (< 3.3) IVSd: 1.2 cm (0.6 - 1.1) LVIDd: 1.8 cm (3.9 - 5.3) LVPWd: 1.5 cm (0.6 - 1.1) IVSs: 1.4 cm LVIDs: 1.2 cm LVPWs: 1.5 cm MV E [place]: 0.56 m/s MV DecT: 134 ms MV A [place]: 1.08 m/s MV E/A Ratio: 0.52 RAP: 20.00 mmHg RVSP: 57.08 mmHg FINDINGS -------- This was a technically difficult study with suboptimal views. Pt. not able to turn due to pain. The left ventricular size is normal. There is mild concentric left ventricular hypertrophy. There is normal global left ventricular contractility. Overall left ventricular systolic function is nor mal with, an EF between 55 - 60 %. Left ventricular fillimg pressure cannot be estimated due to sev ere mitral annular calcification. The right ventricle is moderately enlarged. The left atrium was not well visualized. The right atrium is mildly enlarged. 5.0mg of Lumason was utilized for enhancement of images Interatrial and interventricular septum intact. The aortic valve was not well visualized. There is no evidence of aortic regurgitation. There is no evidence of aortic stenosis. Severe mitral annular calcification present. Mild mitral regurgitation is present. Moderate to severe tricuspid regurgitation present. There is moderate to severe pulmonary hypertens ion. The right ventricular systolic pressure, as measured by Doppler, is 57.08mmHg. The pulmonic valve was not well visualized. The inferior vena cava is dilated with poor inspiratory collapse which is consistent with estimated r ight atrial pressure of 20 mmHg. There is no pericardial effusion. CONCLUSIONS -------- 1. This was a technically difficult study with suboptimal views. 2. The left ventricular size is normal. 3. There is mild concentric left ventricular hypertrophy. 4. There is normal global left ventricular contractility. 5. Overall left ventricular systolic function is normal with, an EF between 55 - 60 %. 6. Left ventricular fillimg pressure cannot be estimated due to severe mitral annular calcification. 7. The right ventricle is moderately enlarged. 8. The right atrium is mildly enlarged. 9. Severe mitral annular calcification present. 10. Mild mitral regurgitation is present. 11. Moderate to severe tricuspid regurgitation present. 12. There is moderate to severe pulmonary hypertension. 13. The right ventricular systolic pressure, as measured by Doppler, is 57.08mmHg. 14. The inferior vena cava is dilated with poor inspiratory collapse which is consistent with estimat ed right atrial pressure of 20 mmHg. DRAPERY AND UPHOLSTERY MEASURER: Nuria Michaels RDCS
--- NOTE | 2020-03-22 16:11 | P.HPIM ---
History of Present Illness H&P Date: 03/22/20 Chief Complaint: Status post fall, confusion This is a 74-year-old female with history of COPD, hypertension, hypothyroidism, colitis, chronic back pain with compression fractures at the 11, T12 and L2 and multiple other medical issues presented to the ER status post fall, new onset confusion. Patient was standing in the kitchen, lost balance, falling and landing on right side, complaining of right shoulder/arm pain. Denies syncope, incontinence of urine or bowel movement. Denies head trauma. Reported lying on the ground several hours before discovered. Patient is a vague historian, majority of information being obtained from computer chart, staff. Denies chest pain, palpitations or shortness of breath. Chest x-ray reporting no evidence for acute pulmonary disease. Left hip and pelvis x-ray reported no acute fracture or dislocation. Right humerus reported no acute fracture or dislocation. Echo suboptimal, reporting normal LV function EF 55-60%, moderate to severe tricuspid regurgitation, moderate to severe pulmonary hypertension. EKG reporting sinus tachycardia. Troponin 0.653, 0.543, 0.376. Afebrile, WBC 16.5, hemoglobin 14.5 platelets 139, sodium 142, potassium 4.1, BUN 25, creatinine 1.12 . UA negative. Confused, alert to name and place, disoriented to time. Review of Systems ROS Statement: Those systems with pertinent positive or pertinent negative responses have been documented in the HPI. ROS Other: All systems not noted in ROS Statement are negative. Past Medical History Past Medical History: COPD, Hypertension, Thyroid Disorder Additional Past Medical History / Comment(s): colitis, OP History of Any Multi-Drug Resistant Organisms: None Reported Past Surgical History: Cholecystectomy, Hysterectomy Additional Past Surgical History / Comment(s): throidectomy Past Anesthesia/Blood Transfusion Reactions: No Reported Reaction Past Psychological History: No Psychological Hx Reported Smoking Status: Never smoker Past Alcohol Use History: None Reported Past Drug Use History: None Reported - Past Family History Father Family Medical History: No Reported History Mother Family Medical History: Hypertension Medications and Allergies Home Medications Medication Instructions Recorded Confirmed Type Cholecalciferol [Vitamin D3 (25 1,000 unit PO HS 03/21/20 03/21/20 History Mcg = 1000 Iu)] Escitalopram Oxalate [Lexapro] 10 mg PO HS 03/21/20 03/21/20 History Furosemide [Lasix] 20 mg PO BID 03/21/20 03/21/20 History L.acidoph,Paracasei, B.lactis 1 cap PO HS 03/21/20 03/21/20 History [Probiotic] Losartan [Cozaar] 100 mg PO HS 03/21/20 03/21/20 History Magnesium Oxide 400 mg PO HS 03/21/20 03/21/20 History Allergies Allergy/AdvReac Type Severity Reaction Status Date / Time iodine Allergy Anaphylaxis Verified 03/21/20 14:15 peanut Allergy Anaphylaxis Verified 03/21/20 14:15 Penicillins Allergy Anaphylaxis Verified 03/21/20 14:15 lactose AdvReac Nausea & Verified 03/21/20 14:15 Vomiting & Diarrhea Physical Exam Vitals: Vital Signs Temp Pulse Pulse Resp BP BP Pulse Ox 03/22/20 03:00 98.3 F 83 20 117/78 93 L 03/21/20 19:49 98.6 F 103 H 18 117/83 92 L 03/21/20 17:29 97.9 F 03/21/20 17:28 111 H 14 138/99 93 L 03/21/20 16:38 116 H 14 117/90 98 03/21/20 16:04 112 H 14 98/68 98 03/21/20 15:21 97.9 F 112 H 14 111/93 98 03/21/20 13:40 98.0 F 122 H 17 143/111 96 Intake and Output 03/21/20 03/22/20 03/22/20 22:59 06:59 14:59 Output Total 350 Balance -350 Output: Urine 350 Other: Voiding Method Indwelling Catheter Indwelling Catheter # Voids 0 Weight 52.163 kg PHYSICAL EXAM: VITAL SIGNS: As above GENERAL: Sitting up in bed, no acute distress, pleasantly confused HEENT: Conjunctivae normal. eyes normal. NECK: No JVD. No thyroid enlargement. No LNs CARDIOVASCULAR: S1, S2 regular. No murmur RESPIRATION: Breath sounds diminished in the bases. No rhonchi or crackles. No bronchial breathing. ABDOMEN: Soft, nontender . No guarding. no masses palpable. No ascites, No hepatosplenomegaly.Bowel sounds heard. LEGS: No edema. no swelling PSYCHIATRY: Alert and oriented X2, disoriented to date/time, confused-some aphasia. NERVOUS SYSTEM: Cranial N 2-12 grossly normal. Moves all 4 limbs. Diffuse weakness, No focal deficits. Strength and sensation grossly intact.. Skin: Warm and dry, multiple bruising , no rash Lymphatic system. No LN neck axilla. Results CBC & Chem 7: 03/21/20 13:54 03/22/20 07:30 Labs: Abnormal Lab Results - Last 24 Hours (Table) 03/21/20 03/21/20 Range/Units 13:54 13:54 WBC 16.5 H (3.8-10.6) k/uL Plt Count 139 L (150-450) k/uL Neutrophils # 15.1 H (1.3-7.7) k/uL Lymphocytes # 0.9 L (1.0-4.8) k/uL Chloride 110 H (98-107) mmol/L Glucose 149 H (74-99) mg/dL AST 45 H (14-36) U/L Total Protein 5.6 L (6.3-8.2) g/dL Albumin 3.4 L (3.5-5.0) g/dL Thrombosis Risk Factor Assmnt - Choose All That Apply Each Risk Factor Represents 3 Points: Age 75 years or older Thrombosis Risk Factor Assessment Total Risk Factor Score: 3 Thrombosis Risk Factor Assessment Level: Moderate Risk Assessment and Plan Assessment: -Altered mental status, acute metabolic encephalopathy, new onset confusion, etiology unclear, possible TIA, CVA, possibly NSTEMI with elevated troponins -Sinus tachycardia -Moderate to severe tricuspid regurgitation -Moderate to severe pulmonary hypertension -Compression fracture at the 11, T12 and L2 -COPD without any acute exacerbation -Hypertension Plan: Continue on current medication regime ,monitoring and symptomatic treatment. Brain CT ordered. Cardiology and neurology consulted. PT /OT. Social work consulted for potential rehab at discharge. Currently on aspirin and betablocker. Prognosis guarded given multiple complex medical issues. The impression and plan of care has been dictated as directed. : I performed a history and examination of this patient, discussed the same with the dictator. I agree with the dictator's note ,documented as a scribe. Any additional findings or plans will be noted.
--- NOTE | 2020-03-22 16:56 | P.CNNES ---
History of Present Illness Consult date: 03/22/20 Requesting physician: Taya Hong Reason for Consult: TIA/CVA, new onset confusion, status post fall History of Present Illness: Patient is a 74-year-old female, who came to the hospital after she fell down while going to the bathroom. It happened yesterday riveter pneumatic at around 3 AM. She crawled back to the bedroom and got into the bed. She did bruise her right elbow and her pelvic region hurts. Patient arrived to the hospital yesterday at around 1:30 PM. Patient has been acting confused since she arrived to the hospital. Patient's was present. He states that patient was given morphine in the ambulance and since then she has been acting confused. Patient's baseline mentation is completely clear. She takes her medications as directed, writes checks, pays her bills, balances the checkbook. Chest x-ray normal, EKG shows sinus tachycardia. 2-D echo showed normal left- ventricular size. Mild concentric LVH. Normal global left ventricular contractility. EF is 55-60%. Severe mitral annular calcification. Mild mitral regurgitation. Moderate to severe tricuspid regurgitation. Moderate to severe pulmonary hypertension. X-ray of the pelvis and right humerus negative. Patient had a negative carotid Doppler on 04/04/2015. Patient has advanced osteoporosis. In 2019, she was admitted to the hospital for pneumonia. Patient's bed was humped up. While turning, she twisted her ba ck and fractured 2 vertebra. She required a walker, which she used for some time and then she started walking without any assistive device. Patient's CBC shows WBC 16.5, hemoglobin 14.5 and platelets 139 PT/PTT normal. Chem-20 is normal. Troponins are mildly elevated. Cholesterol is 132, LDL 71, HDL 40 and triglycerides 105. UA negative. TSH normal. Review of Systems Patient complains of right elbow pain. Patient has generalized body pains. Denies headache. Denies problems with vision. No hoarseness or throat dysphagia. No focal numbness tingling or weakness. Has back pain. Patient denies chest pain shortness of breath, denies abnormal pain nausea vomiting diarrhea. Past Medical History Past Medical History: COPD, Hypertension, Thyroid Disorder Additional Past Medical History / Comment(s): colitis, OP History of Any Multi-Drug Resistant Organisms: None Reported Past Surgical History: Cholecystectomy, Hysterectomy Additional Past Surgical History / Comment(s): throidectomy Past Anesthesia/Blood Transfusion Reactions: No Reported Reaction Past Psychological History: No Psychological Hx Reported Smoking Status: Never smoker Past Alcohol Use History: None Reported Past Drug Use History: None Reported - Past Family History Father Family Medical History: No Reported History Mother Family Medical History: Hypertension Medications and Allergies Home Medications Medication Instructions Recorded Confirmed Type Cholecalciferol [Vitamin D3 (25 1,000 unit PO HS 03/21/20 03/21/20 History Mcg = 1000 Iu)] Escitalopram Oxalate [Lexapro] 10 mg PO HS 03/21/20 03/21/20 History Furosemide [Lasix] 20 mg PO BID 03/21/20 03/21/20 History L.acidoph,Paracasei, B.lactis 1 cap PO HS 03/21/20 03/21/20 History [Probiotic] Losartan [Cozaar] 100 mg PO HS 03/21/20 03/21/20 History Magnesium Oxide 400 mg PO HS 03/21/20 03/21/20 History Allergies Allergy/AdvReac Type Severity Reaction Status Date / Time iodine Allergy Anaphylaxis Verified 03/21/20 14:15 peanut Allergy Anaphylaxis Verified 03/21/20 14:15 Penicillins Allergy Anaphylaxis Verified 03/21/20 14:15 lactose AdvReac Nausea & Verified 03/21/20 14:15 Vomiting & Diarrhea Physical Examination - Vital Signs Vital Signs: Vital Signs Temp Pulse Pulse Resp BP BP Pulse Ox 03/22/20 09:00 97.8 F 105 H 16 129/83 91 L 03/22/20 03:00 98.3 F 83 20 117/78 93 L 03/21/20 19:49 98.6 F 103 H 18 117/83 92 L 03/21/20 17:29 97.9 F 03/21/20 17:28 111 H 14 138/99 93 L 03/21/20 16:38 116 H 14 117/90 98 03/21/20 16:04 112 H 14 98/68 98 03/21/20 15:21 97.9 F 112 H 14 111/93 98 Intake and Output 03/21/20 03/22/20 03/22/20 22:59 06:59 14:59 Output Total 350 200 Balance -350 -200 Output: Urine 350 200 Other: Voiding Method Indwelling Catheter Indwelling Catheter Indwelling Catheter # Voids 0 Weight 52.163 kg 52.163 kg On examination patient is an elderly female, in no acute distress. Patient appears slightly delirious. Mildly short of breath. Patient states it's August and the year is 2001, but then changed to . She could not tell what building she is in. She knows that she is in [place]. Patient knows her and his name. Speech is clear with no aphasia or dysarthria. On cranial examination pupils are round and reacting to light, visual fish are full on confrontation. Extraocular muscles are intact. Face is symmetric, tongue protrudes the midline. A little elevation and sensation normal. Hearing and shoulder shrug appears normal. On muscle strength testing patient did not cooperate. Lot of bones and joints are hurting. Her men's golf coach was slightly weaker on the left. Her right elbow is hurting. Biceps, triceps and deltoids appears equal. Patient began her feet. Hip flexions appears fairly normal. Reflexes symmetric and plantars are downgoing. Sensory touch is equal. No obvious ataxia for [id number] testing. No carotid bruit or murmur S1 and S2 audible. Abdomen soft nontender. No peripheral edema. Gait deferred Results - Laboratory Findings CBC and BMP: 03/21/20 13:54 03/22/20 07:30 Abnormal Lab Findings: Abnormal Labs 03/21/20 03/21/20 03/21/20 13:54 13:54 13:54 WBC 16.5 H Plt Count 139 L Neutrophils # 15.1 H Lymphocytes # 0.9 L Chloride 110 H BUN Creatinine Glucose 149 H Calcium AST 45 H Troponin I 0.653 H* Total Protein 5.6 L Albumin 3.4 L 03/22/20 03/22/20 03/22/20 07:30 07:30 11:48 WBC Plt Count Neutrophils # Lymphocytes # Chloride 112 H BUN 25 H Creatinine 1.12 H Glucose Calcium 8.2 L AST Troponin I 0.543 H* 0.376 H* Total Protein Albumin Assessment and Plan Assessment: * Altered mental status, likely due to delirium. Patient received morphine, which likely resulted in confusional state. * Status post fall. Patient denies any head injury from the fall. * Osteoporosis * Elevated cardiac enzymes. Plan: * Patient is undergoing computed tomography scan of the head. * Patient had a normal carotid Dopplers previously. No carotid bruit. * 2-D echo showed mild concentric LVH, EF 55-60%, right ventricle is moderately enlarged. Severe mitral annular calcification, mild MR, moderate to severe TR. Moderate to severe pulmonary hypertension. * Cardiology on board, for elevated cardiac enzymes. * We'll check B12, folate. TSH is normal. Hemoglobin A1c normal 5.4 on 08/28/2018. * Avoid opiates, sedatives, hypnotics. * We will follow.
--- NOTE | 2020-03-22 16:59 | CT ---
EXAMINATION TYPE: CT brain wo con DATE OF EXAM: 03/22/2020 COMPARISON: Prior head CT 01/05/2010 HISTORY: Weakness and confusion, altered mental status and trauma. CT DLP: 1231.4 mGycm Automated exposure control for dose reduction was used. Head CT performed using departmental protocol . FINDINGS: There are cerebral vascular calcifications. Cortical atrophy is present. Periventricular white matter shows patchy low attenuation. Calvarium is intact. Paranasal sinuses and mastoid air cells as visual ized are within normal limits. Possible arachnoid cyst noted posterior fossa superior to the superior extent of the cerebellum, prominent CSF space is a stable finding. IMPRESSION: NO ACUTE ABNORMALITY. AGE-RELATED CHANGES OF ATROPHY AND PROBABLE CHRONIC SMALL VESSEL ISCHEMIA, WAYLON TIONAL FINDINGS ABOVE.
[2020-03-22] MEDS: LOSARTAN 50 MG TAB PO SCH (20:39)
[2020-03-22] MEDS: MAGNESIUM OXIDE 400 MG TAB PO SCH (20:39)
[2020-03-22] MEDS: ESCITALOPRAM 10 MG TAB PO SCH (20:39)
[2020-03-22] MEDS: CHOLECALCIFEROL 1,000 UNIT TAB PO SCH (20:39)
[2020-03-22] MEDS: ATORVASTATIN 40 MG TAB PO SCH (20:39)
[2020-03-23 00:58] LABS: Folate, Serum 10.6 ng/mL
[2020-03-23 06:55] LABS: HCT 36.2 % (34.0-46.0); MCH 31.1 pg (25.0-35.0); MCHC 33.2 g/dL (31.0-37.0); MCV 93.7 fL (80.0-100.0); Mean Platelet Volume 7.8; Platelet Count 108 k/uL (150-450); RBC 3.86 m/uL (3.80-5.40); RDW 13.3 % (11.5-15.5); WBC 9.2 k/uL (3.8-10.6)
[2020-03-23 07:09] LABS: African American GFR (CKD) >90 (>60 ml/min/1.73 sqM); Anion Gap 2 mmol/L; Blood Urea Nitrogen 25 mg/dL (7-17); Carbon Dioxide 25 mmol/L (22-30); Chloride 113 mmol/L (98-107); Glucose 86 mg/dL (74-99); Non-African American GFR(CKD) >90 (>60 ml/min/1.73 sqM); Potassium 3.8 mmol/L (3.5-5.1); Sodium 140 mmol/L (137-145)
--- NOTE | 2020-03-23 11:17 | P.PN ---
Subjective Progress Note Date: 03/23/20 This is a 74-year-old female with history of COPD, hypertension, hypothyroidism, colitis, chronic back pain with compression fractures at the 11, T12 and L2 and multiple other medical issues presented to the ER status post fall, new onset confusion. Patient was standing in the kitchen, lost balance, falling and landing on right side, complaining of right shoulder/arm pain. Denies syncope, incontinence of urine or bowel movement. Denies head trauma. Reported lying on the ground several hours before discovered. Patient is a vague historian, majority of information being obtained from computer chart, staff. Denies chest pain, palpitations or shortness of breath. Chest x-ray reporting no evidence for acute pulmonary disease. Left hip and pelvis x-ray reported no acute fracture or dislocation. Right humerus reported no acute fracture or dislocation. Echo suboptimal, reporting normal LV function EF 55-60%, moderate to severe tricuspid regurgitation, moderate to severe pulmonary hypertension. EKG reporting sinus tachycardia. Troponin 0.653, 0.543, 0.376. Afebrile, WBC 16.5, hemoglobin 14.5 platelets 139, sodium 142, potassium 4.1, BUN 25, creatinine 1.12 . UA negative. Confused, alert to name and place, disoriented to time. 03/23/2020 Much more alert today. Easily conversing with without difficulty. Evaluated by cardiology and neurology with recommendations noted and appr eciated. Neuro workup in progress. Brain CT reported no acute abnormality. Hypertensive. Denies chest pain, palpitations or shortness of breath. PT/OT evaluation pending. Continues on gentle IV fluid hydration with significant improvement in renal function. Objective - Vital Signs Vital signs: Vital Signs Temp 98.3 F 03/23/20 09:04 Pulse 87 03/23/20 09:04 Resp 16 03/23/20 09:04 BP 173/94 03/23/20 09:04 Pulse Ox 96 03/23/20 09:04 Intake & Output 03/22/20 03/23/20 03/23/20 18:59 06:59 18:59 Intake Total 540 1350 Output Total 200 280 Balance 340 1070 Weight 52.163 kg Intake: Intake, IV Titration 1200 Amount Sodium Chloride 0.9% 1, 900 000 ml @ 150 mls/hr IV . [id number] [facility] Rx#:[id number] Sodium Chloride 0.9% 1, 300 000 ml @ 75 mls/hr IV . [id number] [facility] Rx#:[id number] Oral 540 150 Output: Urine 200 280 Other: Voiding Method Indwelling Catheter Indwelling Catheter - Exam PHYSICAL EXAM: VITAL SIGNS: As above GENERAL: Sitting up in bed, no acute distress, more alert HEENT: Conjunctivae normal. eyes normal. NECK: No JVD. No thyroid enlargement. No LNs CARDIOVASCULAR: S1, S2 regular. No murmur RESPIRATION: Breath sounds diminished in the bases. No rhonchi or crackles. No bronchial breathing. ABDOMEN: Soft, nontender . No guarding. no masses palpable. No ascites, No hepatosplenomegaly.Bowel sounds heard. LEGS: No edema. no swelling PSYCHIATRY: Alert and oriented X3 NERVOUS SYSTEM: Cranial N 2-12 grossly normal. Moves all 4 limbs, right arm mi nimal movement-"tender". Diffuse weakness, No focal deficits. Strength and sensation grossly intact.. Skin: Warm and dry, multiple bruising , no rash - Labs CBC & Chem 7: 03/23/20 06:42 03/23/20 06:42 Labs: Abnormal Lab Results - Last 24 Hours (Table) 03/21/20 03/21/20 03/22/20 Range/Units 13:54 13:54 07:30 Plt Count (150-450) k/uL Chloride (98-107) mmol/L BUN (7-17) mg/dL Calcium (8.4-10.2) mg/dL Troponin I 0.653 H* 0.543 H* (0.000-0.034) ng/mL Vitamin B12 1351.0 H (200.0-944.0) pg/mL 03/22/20 03/23/20 03/23/20 Range/Units 11:48 06:42 06:42 Plt Count 108 L (150-450) k/uL Chloride 113 H (98-107) mmol/L BUN 25 H (7-17) mg/dL Calcium 8.0 L (8.4-10.2) mg/dL Troponin I 0.376 H* (0.000-0.034) ng/mL Vitamin B12 (200.0-944.0) pg/mL Microbiology - Last 24 Hours (Table) 03/21/20 15:30 Urine Culture - Preliminary Urine,Catheterized Assessment and Plan Assessment: -Altered mental status, acute metabolic encephalopathy, new onset confusion, etiology unclear, possible med induced delirium. Possible TIA, possibly NSTEMI with elevated troponins -Status post fall, denies head trauma, head CT reported negative. -Sinus tachycardia -Hypertension -Acute renal failure, improved with IV fluid hydration -Moderate to severe tricuspid regurgitation -Moderate to severe pulmonary hypertension -Compression fracture at the 11, T12 and L2 -Osteoporosis, advanced -COPD without any acute exacerbation Plan: Continue on current medication regime ,monitoring and symptomatic treatment. Evaluated by speech therapy, modified barium swallow ordered . Norvasc added to med regimen with close monitoring of blood pressures. Maintained on aspirin and betablocker. Neuro workup in progress. Prognosis guarded given multiple complex medical issues. The impression and plan of care has been dictated as directed. : I performed a history and examination of this patient, discussed the same with the dictator. I agree with the dictator's note ,documented as a scribe. Any additional findings or plans will be noted.
[2020-03-23] MEDS: METOPROLOL TARTRATE 12.5 MG TAB PO SCH ×3 (12:13→20:47)
[2020-03-23] MEDS: ASPIRIN 81 MG PO SCH (12:13)
[2020-03-23] MEDS: amLODIPine 5 MG TAB PO SCH (12:13)
[2020-03-23] MEDS: PANTOPRAZOLE 40 MG/10 ML VIAL IVP SCH (12:13)
[2020-03-23] MEDS ORDERED: ACETAMINOPHEN TAB 500 MG TAB PO PRN (12:30)
--- NOTE | 2020-03-23 13:10 | FL ---
EXAMINATION TYPE: FL barium swallow w video DATE OF EXAM: 03/23/2020 COMPARISON: NONE HISTORY: Bedside test abnormal TECHNIQUE: Fluoroscopy. FINDINGS: Fluoroscopic guidance was provided for the procedure performed in conjunction with the [facility] [facility] pathology department. Please see complete report forthcoming from the Speech Pathology departmen t. Various consistencies from thin liquid to solids were administered. Fluoroscopy time 2 minutes 40 seconds. Number of images: 0. No aspiration or penetration was evident. There is pooling present within the vallecula throughout the examination. There is hesitancy of bolus transit through the hypopharynx and swallowing IMPRESSION: 1. No aspiration or significant penetration. 2. Pooling within vallecula. 3. Slow initiation and transient through the oropharynx
--- NOTE | 2020-03-23 14:03 | US ---
EXAMINATION TYPE: US carotid duplex BILAT DATE OF EXAM: 03/23/2020 COMPARISON: US 2014 CLINICAL HISTORY: F/U from 2015, admitted with fall AMS. Weakness EXAM MEASUREMENTS: RIGHT: Peak Systolic Velocity (PSV) cm/sec ----- Right CCA: 53.1 ----- Right ICA: 68.8 ----- Right ECA: 59.5 ICA/CCA ratio: 1.3 RIGHT: End Diastole cm/sec ----- Right CCA: 11.8 ----- Right ICA: 23.0 ----- Right ECA: 5.2 LEFT: Peak Systolic Velocity (PSV) cm/sec ----- Left CCA: 50.3 ----- Left ICA: 83.5 ----- Left ECA: 65.1 ICA/CCA ratio: 1.7 LEFT: End Diastole cm/sec ----- Left CCA: 14.0 ----- Left ICA: 29.3 ----- Left ECA: 4.9 VERTEBRALS (direction of flow): Right Vertebral: Antegrade Left Vertebral: Antegrade Rhythm: Normal Bilateral intimal thickening, minimal plaque bilateral bulb, no elevated velocities, no significant s tenosis. Grayscale, color Doppler, spectral Doppler imaging performed of the carotid arteries. Wavefo rm analysis does not show significant stenosis of the proximal internal carotid arteries. IMPRESSION: No hemodynamic significant stenosis of the proximal internal carotid arteries by Doppler criteria, an indirect measurement of carotid stenosis Criteria for Assigning % of Stenosis / Diameter reduction (Estimation based on the indirect measurements of the internal carotid artery velocities (ICA PSV). 1. Normal (no stenosis)=ICA PSV < 125 cm/s: ratio < 2.0: ICA EDV<40 cm/s. 2. Less than 50% stenosis=ICA PSV < 125 cm/s: ratio < 2.0: ICA EDV<40 cm/s. 3. 50 to 69% stenosis=ICA PSV of 125 to 230 cm/s: ration 2.0 ? 4.0: ICA EDV 40-100 cm/s. 4. Greater than 70% stenosis to near occlusion= ICA PSV > 230 cm/s: ratio > 4.0: ICA EDV > 100 cm/s. 5. Near occlusion= ICA PSV velocities may be low or undetectable: variable ratio and ICA EDV. 6. Total occlusion=unable to detect flow.
--- NOTE | 2020-03-23 14:18 | P.PN ---
Subjective Progress Note Date: 03/23/20 Patient is laying comfortably in the bed. Appears generalized weak. Patient has some issues with swallow studies and is recommending dysphagia diet. Patient states that she feels tired. Objective - Vital Signs Vital signs: Vital Signs Temp 98.3 F 03/23/20 09:04 Pulse 87 03/23/20 09:04 Resp 16 03/23/20 09:04 BP 173/94 03/23/20 09:04 Pulse Ox 96 03/23/20 09:04 Intake & Output 03/22/20 03/23/20 03/23/20 18:59 06:59 18:59 Intake Total 540 1350 Output Total 200 280 Balance 340 1070 Weight 52.163 kg Intake: Intake, IV Titration 1200 Amount Sodium Chloride 0.9% 1, 900 000 ml @ 150 mls/hr IV . [id number] [facility] Rx#:[id number] Sodium Chloride 0.9% 1, 300 000 ml @ 75 mls/hr IV . [id number] [facility] Rx#:[id number] Oral 540 150 Output: Urine 200 280 Other: Voiding Method Indwelling Catheter Indwelling Catheter Indwelling Catheter - Exam Patient is still slightly drowsy. Patient does wake up. Her speech is clear. No aphasia or dysarthria. Patient states that she is in the hospital but does not know the name. She knows that she is in [facility]. States the year is 2001. Her face is symmetric. Visual fish appears full. There is no pronator drift. The strength is equal in both arms. Patient is very tender in the left wrist from her fall. Patient's strength of her ankles are normal bilaterally. Hip flexion is generalized weak bilaterally. Sensations are e qual. Plantars withdrawal bilaterally. - Labs CBC & Chem 7: 03/23/20 06:42 03/23/20 06:42 Labs: Abnormal Lab Results - Last 24 Hours (Table) 03/21/20 03/23/20 03/23/20 Range/Units 13:54 06:42 06:42 Plt Count 108 L (150-450) k/uL Chloride 113 H (98-107) mmol/L BUN 25 H (7-17) mg/dL Calcium 8.0 L (8.4-10.2) mg/dL Vitamin B12 1351.0 H (200.0-944.0) pg/mL Microbiology - Last 24 Hours (Table) 03/21/20 15:30 Urine Culture - Final Urine,Catheterized 03/22/20 08:55 Blood Culture - Preliminary Blood No Growth after 24 hours Assessment and Plan Assessment: * Altered mental status, likely due to delirium. Patient received morphine, which likely resulted in confusional state. * Status post fall. Patient denies any head injury from the fall. * Osteoporosis * Elevated cardiac enzymes. Plan: * Computed tomography scan of the head showed no acute process. Age-related changes of atrophy and probable chronic small vessel ischemia. * Carotid Doppler showed no significant stenosis of the ICA bilaterally. Antegrade flow in both vertebral arteries. * 2-D echo showed mild concentric LVH, EF 55-60%, right ventricle is moderately enlarged. Severe mitral annular calcification, mild MR, moderate to severe TR. Moderate to severe pulmonary hypertension. * Cardiology on board, for elevated cardiac enzymes. * B12 1351, folate 10.6. TSH is normal. Hemoglobin A1c normal 5.4 on . * Avoid opiates, sedatives, hypnotics. * PT OT
--- NOTE | 2020-03-23 15:19 | PN ---
PROGRESS NOTE A 74-year-old lady who was admitted to hospital with weakness, confusion, and tachycardia. She was evaluated by Dr. Nabeel Dubon on her initial presentation, had an echocardiogram that showed an ejection fraction of 55%-60% with moderate to severe tricuspid regurgitation. On exam today, she is comfortable at rest. Appears less confused. Blood pressure is poorly controlled. Chest exam reveals good air entry bilaterally. Heart exam reveals first and second heart sounds. Systolic murmur at the apex. Abdomen is soft. Exam of the extremities did not reveal any edema. Peripheral pulses are felt. She is currently on Cozaar 100 q. daily, Lopressor 12.5 t.i.d. aspirin and Lipitor. Because of the poorly controlled blood pressure, I will add amlodipine. Her labs showed that the troponins are mildly elevated at 0.6, 0.5 and 0.3. Her EKG on admission showed sinus tachycardia with nonspecific ST-T wave changes. ASSESSMENT: 1. Elevated troponin, probably related to sinus tachycardia and supply demand mismatch. 2. Acute confusional state, exact etiology is unclear. 3. Sinus tachycardia. 4. Uncontrolled hypertension. PLAN: I will add amlodipine for better blood pressure control. MMODL / IJN: [id number] /
[2020-03-23] MEDS: CHOLECALCIFEROL 1,000 UNIT TAB PO SCH (20:47)
[2020-03-23] MEDS: LOSARTAN 50 MG TAB PO SCH (20:47)
[2020-03-23] MEDS: MAGNESIUM OXIDE 400 MG TAB PO SCH (20:47)
[2020-03-23] MEDS: ATORVASTATIN 40 MG TAB PO SCH (20:48)
[2020-03-23] MEDS: ESCITALOPRAM 10 MG TAB PO SCH (20:48)
[2020-03-24] MEDS ORDERED: ONDANSETRON 4 MG/2 ML VIAL IVP PRN (08:30)
[2020-03-24] MEDS: PANTOPRAZOLE 40 MG/10 ML VIAL IVP SCH (10:08)
--- NOTE | 2020-03-24 10:29 | P.DS ---
Providers Date of admission: 03/22/20 09:15 Expected date of discharge: 03/24/20 Attending physician: Linus Simon Consults: 03/21/20 16:24 Consult Physician Routine Consulting Provider: Nikolay Dubon Consult Reason/Comments: tachycardia Do you want consulting provider notified?: Yes 03/22/20 08:43 Consult Physician Urgent Consulting Provider: Gianfranco Deleon Consult Reason/Comments: tia/cva, new onset confusion,s/p fall Do you want consulting provider notified?: Yes Primary care physician: Linus Simon Hospital Course: Final Diagnoses: -Altered mental status, acute metabolic encephalopathy, new onset confusion, etiology unclear, possible med induced delirium as per neurology. Possibly NSTEMI with elevated troponins. Elevated troponins related to sinus tachycardia, supply and demand mismatch as per cardiology. -Status post fall, denies head trauma, head CT reported negative. -Sinus tachycardia -Hypertension, uncontrolled, improving. -Acute renal failure, improved with IV fluid hydration -Moderate to severe tricuspid regurgitation -Moderate to severe pulmonary hypertension -Compression fracture at the 11, T12 and L2 -Osteoporosis, advanced -COPD without any acute exacerbation Hospital course:This is a 74-year-old female with history of COPD, hypertension, hypothyroidism, colitis, chronic back pain with compression fractures at the 11, T12 and L2 and multiple other medical issues presented to the ER status post fall, new onset confusion. Patient was standing in the kitchen, lost balance, falling and landing on right side, complaining of right shoulder/arm pain. Denies syncope, incontinence of urine or bowel movement. Denies head trauma. Reported lying on the ground several hours before discovered. Patient is a vague historian, majority of information being obtained from computer chart, staff. Denies chest pain, palpitations or shortness of breath. Chest x-ray reporting no evidence for acute pulmonary disease. Left hip and pelvis x-ray reported no acute fracture or dislocation. Right humerus reported no acute fracture or dislocation. Echo suboptimal, reporting normal LV function EF 55- 60%, moderate to severe tricuspid regurgitation, moderate to severe pulmonary hypertension. EKG reporting sinus tachycardia. Troponin 0.653, 0.543, 0.376. Afebrile, WBC 16.5, hemoglobin 14.5 platelets 139, sodium 142, potassium 4.1, BUN 25, creatinine 1.12 . UA negative. Confused, alert to name and place, disoriented to time. 03/23/2020 Much more alert today. Easily conversing with without difficulty. Evaluated by cardiology and neurology with recommendations noted and appreciated. Neuro workup in progress. Brain CT reported no acute abnormality. Hypertensive. Denies chest pain, palpitations or shortness of breath. PT/OT evaluation pending. Continues on gentle IV fluid hydration with significant improvement in renal function. Significant clinical improvement. Patient will be discharged to [facility] subacute rehab., In a stable condition with guarded prognosis, pending final DC recommendations and clearance from both neurology and cardiology. Authorization pending. VITAL SIGNS: As above GENERAL: Sitting up in bed, no acute distress HEENT: Conjunctivae normal. eyes normal. Oral mucosa moist. NECK: No JVD. No thyroid enlargement. No LNs CARDIOVASCULAR: S1, S2 regular. No murmur. RESPIRATION: Breath sounds diminished in the bases. No rhonchi or crackles. No bronchial breathing. ABDOMEN: Soft, nontender . No guarding. no masses palpable.Positive Bowel sounds heard. LEGS: No edema. no swelling PSYCHIATRY: Alert and oriented X3 NERVOUS SYSTEM: Cranial N 2-12 grossly normal. Moves all 4 limbs. Diffuse weakness, No focal deficits. Strength and sensation grossly intact.. Skin: Warm and dry, multiple bruising , no rash The impression and plan of care has been dictated as directed. : I performed a history and examination of this patient, discussed the same with the dictator. I agree with the dictator's note ,documented as a scribe. Any additional findings or plans will be noted. Patient Condition at Discharge: Stable Plan - Discharge Summary New Discharge Prescriptions: New Aspirin 81 mg PO DAILY chew Atorvastatin [Lipitor] 40 mg PO HS tab Metoprolol Tartrate [Lopressor] 12.5 mg PO TID tab amLODIPine [Norvasc] 5 mg PO DAILY tab Pantoprazole Sodium [Protonix] 40 mg PO DAILY #30 tablet. Acetaminophen Tab [Tylenol] 1,000 mg PO Q6HR PRN tab PRN Reason: Fever And/ Or Pain Continue Cholecalciferol [Vitamin D3 (25 Mcg = 1000 Iu)] 1,000 unit PO HS Magnesium Oxide 400 mg PO HS L.acidoph,Paracasei, B.lactis [Probiotic] 1 cap PO HS Escitalopram Oxalate [Lexapro] 10 mg PO HS Losartan [Cozaar] 100 mg PO HS Discharge Medication List Cholecalciferol [Vitamin D3 (25 Mcg = 1000 Iu)] 1,000 unit PO HS 03/21/20 [History] Escitalopram Oxalate [Lexapro] 10 mg PO HS 03/21/20 [History] L.acidoph,Paracasei, B.lactis [Probiotic] 1 cap PO HS 03/21/20 [History] Losartan [Cozaar] 100 mg PO HS 03/21/20 [History] Magnesium Oxide 400 mg PO HS 03/21/20 [History] Acetaminophen Tab [Tylenol] 1,000 mg PO Q6HR PRN tab 03/24/20 [Rx] Aspirin 81 mg PO DAILY chew 03/24/20 [Rx] Atorvastatin [Lipitor] 40 mg PO HS tab 03/24/20 [Rx] Metoprolol Tartrate [Lopressor] 12.5 mg PO TID tab 03/24/20 [Rx] Pantoprazole Sodium [Protonix] 40 mg PO DAILY #30 tablet. 03/24/20 [Rx] amLODIPine [Norvasc] 5 mg PO DAILY tab 03/24/20 [Rx] Follow up Appointment(s)/Referral(s): Linus Simon DO [Primary Care Provider] - 1 Week (After DC from subacute rehab) Activity/Diet/Wound Care/Special Instructions: [facility] subacute rehab. Confirm cardiology follow-up appointment prior to discharge. CBC BMP in 3 days Strict aspiration precautions Diet: Dysphagia level III chopped, one-to-one supervision, no straws Discharge Disposition: TRANSFER TO SNF/ECF
[2020-03-24] MEDS: METOPROLOL TARTRATE 12.5 MG TAB PO SCH ×3 (13:19→20:35)
[2020-03-24] MEDS: ASPIRIN 81 MG PO SCH (13:19)
[2020-03-24] MEDS: amLODIPine 5 MG TAB PO SCH (13:19)
--- NOTE | 2020-03-24 14:26 | P.PN ---
Subjective Progress Note Date: 03/24/20 Patient is laying comfortably in the bed. Appears generalized weak. Patient does not complain of pain as much today, therefore able to perform better neurological examination/assessment. Patient has some dysphagia, and speech therapist has recommended dysphagia diet. Patient states that she feels tired. Patient admits to having some slurred speech. Objective - Vital Signs Vital signs: Vital Signs Temp 98.2 F 03/24/20 04:31 Pulse 86 03/24/20 04:31 Resp 18 03/24/20 04:31 BP 164/83 03/24/20 04:31 Pulse Ox 93 L 03/24/20 04:39 Intake & Output 03/23/20 03/24/20 03/24/20 18:59 06:59 18:59 Intake Total 600 120 178 Output Total 425 Balance 175 120 178 Weight 56 kg Intake: Oral 600 120 178 Output: Urine 425 Other: Voiding Method Indwelling Catheter - Exam Patient is still slightly drowsy. Patient does wake up. Her speech is mildly dysarthric at times and other times appears more clear. This is seen as noticed the last couple days. Her face is symmetric. Visual fish appears full. Patient has mild right pronator drift. The strength is equal in both arms. 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 Her hip flexion is very weak bilaterally, not able to lift her legs up. Patient's strength of her ankles are normal bilaterally. Sensations are equal. Plantar is up on the right, probably downgoing left. - Labs CBC & Chem 7: 03/23/20 06:42 03/23/20 06:42 Labs: Microbiology - Last 24 Hours (Table) 03/22/20 08:55 Blood Culture - Preliminary Blood No Growth after 48 hours 03/21/20 15:30 Urine Culture - Final Urine,Catheterized Assessment and Plan Assessment: * Persistent weakness, with some focality on the right, with mild dysarthria, dysphagia, rule out sub-acute CVA. 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 * Altered mental status, likely due to delirium. * Status post fall. Patient denies any head injury from the fall. * Osteoporosis * Elevated cardiac enzymes. Plan: * MRI brain rule out pontine infarct. * Carotid Doppler showed no significant stenosis of the ICA bilaterally. Antegrade flow in both vertebral arteries. * 2-D echo showed mild concentric LVH, EF 55-60%, right ventricle is moderately enlarged. Severe mitral annular calcification, mild MR, moderate to severe TR. Moderate to severe pulmonary hypertension. * Cardiology on board, for elevated cardiac enzymes. * B12 1351, folate 10.6. TSH is normal. Hemoglobin A1c normal 5.4 on 08/28/2018. * Avoid opiates, sedatives, hypnotics. * PT OT
--- NOTE | 2020-03-24 16:32 | PN ---
PROGRESS NOTE FOLLOW-UP NOTE: This patient is a 74-year-old lady who is admitted to hospital with confusional state, sinus tachycardia, uncontrolled hypertension and mild troponin elevation. An echocardiogram showed normal LV systolic function with moderate to severe tricuspid regurgitation. This morning she is less confused. PHYSICAL EXAMINATION: Heart rate is 86 beats per minute. Blood pressure is 164/82, respiratory rate is 18. There is no jugular venous distention. Chest exam reveals good air entry bilaterally. Heart exam reveals first and second heart sounds. No gallop. Examination of extremities reveals mild edema. ASSESSMENT: 1. Uncontrolled hypertension. 2. Confusional state. PLAN: I will increase the dose of Norvasc to 10 mg daily. Source of by the neurologist. MMODL / IJN: [id number] /
[2020-03-24 18:43] VITALS: BMI 21.9
[2020-03-24] MEDS: CHOLECALCIFEROL 1,000 UNIT TAB PO SCH (20:35)
[2020-03-24] MEDS: ATORVASTATIN 40 MG TAB PO SCH (20:35)
[2020-03-24] MEDS: LOSARTAN 50 MG TAB PO SCH (20:35)
[2020-03-24] MEDS: ESCITALOPRAM 10 MG TAB PO SCH (20:35)
[2020-03-24] MEDS: MAGNESIUM OXIDE 400 MG TAB PO SCH (20:35)
--- NOTE | 2020-03-24 22:17 | MR ---
EXAMINATION TYPE: MR brain wo con DATE OF EXAM: 03/24/2020 COMPARISON: CT 03/22/2020 HISTORY: CVA, new onset confusion post fall Standard multiplanar, multisequence MRI departmental protocol Multiplanar, multisequence images of the brain were acquired. Diffusion weighted imaging was performe d. FINDINGS: There is no restricted diffusion to suggest acute or subacute infarction. No mass or mass e ffect. No evidence of hemorrhage. No vasogenic or cytotoxic edema. Nonspecific bilateral caro radiata and centrum semiovale T2 hyperintensity is noted, statistically most frequently representing small vessel ischemic change. Extra-axial compartment is unremarkable. The skeletal structures and paranasal sinuses and mastoid sinus air cells and middle ear cavities are unremarkable as seen. IMPRESSION: No acute process.
[2020-03-25 04:19] VITALS: RESP 18
[2020-03-25] MEDS ORDERED: PANTOPRAZOLE 40 MG TABLET PO SCH (07:30)
[2020-03-25] MEDS: METOPROLOL TARTRATE 12.5 MG TAB PO SCH (08:55)
[2020-03-25] MEDS: amLODIPine 5 MG TAB PO SCH (08:55)
[2020-03-25] MEDS: ASPIRIN 81 MG PO SCH (08:55)
[2020-03-25 11:04] VITALS: BP 142/78; PULSE 92; TEMP 98.4
--- NOTE | 2020-03-25 12:08 | P.DS ---
Providers Date of admission: 03/22/20 09:15 Expected date of discharge: 03/25/20 Attending physician: Linus Simon Consults: 03/21/20 16:24 Consult Physician Routine Consulting Provider: Nikolay Dubon Consult Reason/Comments: tachycardia Do you want consulting provider notified?: Yes 03/22/20 08:43 Consult Physician Urgent Consulting Provider: Gianfranco Deleon Consult Reason/Comments: tia/cva, new onset confusion,s/p fall Do you want consulting provider notified?: Yes Primary care physician: Linus Simon Hospital Course: Final Diagnoses: -Altered mental status, acute metabolic encephalopathy, new onset confusion, etiology unclear, possible med induced delirium as per neurology. Possibly NSTEMI with elevated troponins. Elevated troponins related to sinus tachycardia, supply and demand mismatch as per cardiology. -Covid 19 ruled out, testing was negative -Status post fall, denies head trauma, head CT reported negative. -Sinus tachycardia -Hypertension, uncontrolled, improving. -Acute renal failure, improved with IV fluid hydration -Moderate to severe tricuspid regurgitation -Moderate to severe pulmonary hypertension -Compression fracture at the 11, T12 and L2 -Osteoporosis, advanced -COPD without any acute exacerbation Hospital course:This is a 74-year-old female with history of COPD, hypertension, hypothyroidism, colitis, chronic back pain with compression fractures at the 11, T12 and L2 and multiple other medical issues presented to the ER status post fall, new onset confusion. Patient was standing in the kitchen, lost balance, falling and landing on right side, complaining of right shoulder/arm pain. Denies syncope, incontinence of urine or bowel movement. Denies head trauma. Reported lying on the ground several hours before discovered. Patient is a vague historian, majority of information being obtained from computer chart, staff. Denies chest pain, palpitations or shortness of breath. Chest x-ray reporting no evidence for acute pulmonary disease. Left hip and pelvis x-ray reported no acute fracture or dislocation. Right humerus reported no acute fracture or dislocation. Echo suboptimal, reporting normal LV function EF 55- 60%, moderate to severe tricuspid regurgitation, moderate to severe pulmonary hypertension. EKG reporting sinus tachycardia. Troponin 0.653, 0.543, 0.376. Afebrile, WBC 16.5, hemoglobin 14.5 platelets 139, sodium 142, potassium 4.1, BUN 25, creatinine 1.12 . UA negative. Confused, alert to name and place, disoriented to time. 03/23/2020 Much more alert today. Easily conversing with without difficulty. Evaluated by cardiology and neurology with recommendations noted and appreciated. Neuro workup in progress. Brain CT reported no acute abnormality. Hypertensive. Denies chest pain, palpitations or shortness of breath. PT/OT evaluation pending. Continues on gentle IV fluid hydration with significant improvement in renal function. Significant clinical improvement. Patient will be discharged to [facility] subacute rehab., In a stable condition with guarded prognosis, pending final DC recommendations and clearance from both neurology and cardiology. Authorization pending. 03/24/2020 Neurology recommending MRI prior to discharge. Patient underwent MRI showing no acute process. Patient is maintained on Norvasc per cardiology recommendations and will continue. 03/25/2020 Patient was seen and evaluated and follow-up and MRI was negative for any acute process and cleared by neurology and cardiology for discharge to subacute rehab. She will be going to [facility]. Patient had Covid 19 testing which was negative. VITAL SIGNS: Temp is 98.4F, pulse is 92, respirations are 18, blood pressure is 142/78, oxygen saturation is 94% on 2 L via nasal cannula. GENERAL: Sitting up in bed, no acute distress HEENT: Conjunctivae normal. eyes normal. Oral mucosa moist. NECK: No JVD. No thyroid enlargement. No LNs CARDIOVASCULAR: S1, S2 regular. No murmur. RESPIRATION: Breath sounds diminished in the bases. No rhonchi or crackles. No bronchial breathing. ABDOMEN: Soft, nontender . No guarding. no masses palpable. Positive Bowel sounds heard. LEGS: No edema. no swelling PSYCHIATRY: Alert and oriented X3 NERVOUS SYSTEM: Cranial N 2-12 grossly normal. Moves all 4 limbs. Diffuse weakness, No focal deficits. Strength and sensation grossly intact.. Skin: Warm and dry, multiple bruising , no rash Patient Condition at Discharge: Stable Plan - Discharge Summary New Discharge Prescriptions: New Aspirin 81 mg PO DAILY chew Atorvastatin [Lipitor] 40 mg PO HS tab Metoprolol Tartrate [Lopressor] 12.5 mg PO TID tab amLODIPine [Norvasc] 5 mg PO DAILY tab Pantoprazole Sodium [Protonix] 40 mg PO DAILY #30 tablet.dr Acetaminophen Tab [Tylenol] 1,000 mg PO Q6HR PRN tab PRN Reason: Fever And/ Or Pain Continue Cholecalciferol [Vitamin D3 (25 Mcg = 1000 Iu)] 1,000 unit PO HS Magnesium Oxide 400 mg PO HS L.acidoph,Paracasei, B.lactis [Probiotic] 1 cap PO HS Escitalopram Oxalate [Lexapro] 10 mg PO HS Losartan [Cozaar] 100 mg PO HS Discharge Medication List Cholecalciferol [Vitamin D3 (25 Mcg = 1000 Iu)] 1,000 unit PO HS 03/21/20 [History] Escitalopram Oxalate [Lexapro] 10 mg PO HS 03/21/20 [History] L.acidoph,Paracasei, B.lactis [Probiotic] 1 cap PO HS 03/21/20 [History] Losartan [Cozaar] 100 mg PO HS 03/21/20 [History] Magnesium Oxide 400 mg PO HS 03/21/20 [History] Acetaminophen Tab [Tylenol] 1,000 mg PO Q6HR PRN tab 03/24/20 [Rx] Aspirin 81 mg PO DAILY chew 03/24/20 [Rx] Atorvastatin [Lipitor] 40 mg PO HS tab 03/24/20 [Rx] Metoprolol Tartrate [Lopressor] 12.5 mg PO TID tab 03/24/20 [Rx] Pantoprazole Sodium [Protonix] 40 mg PO DAILY #30 tablet. 03/24/20 [Rx] amLODIPine [Norvasc] 5 mg PO DAILY tab 03/24/20 [Rx] Follow up Appointment(s)/Referral(s): Linus Simon DO [Primary Care Provider] - 1 Week (After DC from subacute rehab) Activity/Diet/Wound Care/Special Instructions: [facility]. Confirm cardiology follow-up appointment prior to discharge. CBC BMP in 3 days Strict aspiration precautions Diet: Dysphagia level III chopped, one-to-one supervision, no straws Discharge Disposition: TRANSFER TO SNF/ECF
--- NOTE | 2020-03-25 14:31 | P.PN ---
Subjective Progress Note Date: 03/25/20 Patient is laying comfortably in the bed. Appears generalized weak. Patient states that she feels tired. Complains of back pain. Objective - Vital Signs Vital signs: Vital Signs Temp 98.4 F 03/25/20 08:00 Pulse 92 03/25/20 11:52 Resp 18 03/25/20 11:52 BP 142/78 03/25/20 08:00 Pulse Ox 94 L 03/25/20 08:00 Intake & Output 03/24/20 03/25/20 03/25/20 18:59 06:59 18:59 Intake Total 208 120 120 Output Total 400 Balance -192 120 120 Weight 56 kg 38.5 kg Intake: Oral 208 120 120 Output: Urine 400 Other: Voiding Method Indwelling Catheter Indwelling Catheter - Exam Patient is more awake. Patient states the year is 1999. Could not tell the month. Her speech is at baseline. Her muscle strength shows no pronator drift. Her deltoids are 5-due to pain, biceps, triceps normal. Slip Bridge Operator is 4+ to 5- bilaterally. Ankle dorsiflexion normal. Hip flexion 2-3. - Labs CBC & Chem 7: 03/23/20 06:42 03/23/20 06:42 Labs: Microbiology - Last 24 Hours (Table) 03/22/20 08:55 Blood Culture - Preliminary Blood No Growth after 72 hours Assessment and Plan Assessment: * Persistent weakness, with some focality on the right, with mild dysarthria, dysphagia, rule out sub-acute CVA. 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 * Altered mental status, likely due to delirium. * Status post fall. Patient denies any head injury from the fall. * Osteoporosis * Elevated cardiac enzymes. Plan: * MRI brain revealed no acute stroke. 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 * Carotid Doppler showed no significant stenosis of the ICA bilaterally. Antegrade flow in both vertebral arteries. * 2-D echo showed mild concentric LVH, EF 55-60%, right ventricle is moderately enlarged. Severe mitral annular calcification, mild MR, moderate to severe TR. Moderate to severe pulmonary hypertension. * Cardiology on board, for elevated cardiac enzymes. * B12 1351, folate 10.6. TSH is normal. Hemoglobin A1c normal 5.4 on 08/28/2018. * Continue aspirin 81 mg and Lipitor 40 mg. * Avoid opiates, sedatives, hypnotics. * PT OT * Clear for discharge to rehab facility.
--- NOTE | 2020-03-25 14:48 | PN ---
PROGRESS NOTE Elba is a 74-year-old lady that is admitted to hospital with confusion and uncontrolled hypertension. She is feeling much better, less confused. On exam, her blood pressure is better controlled at 147/78, heart rate is 85, respiratory rate is 18, O2 saturation is 97. There is no leg edema. Heart exam reveals first and second heart sounds. LABS: Show that the hemoglobin is 12, platelet count is 108, the troponins are mildly elevated at 0.6, 0.5 and 0.3 but no clear clinical significance but her creatinine was up on initial presentation, that could be the reason. ASSESSMENT: 1. Confusional state, improved. 2. Uncontrolled hypertension, better controlled. 3. No other cardiac workup at this time. MMODL / IJN: [id number] /
== END 2020-03-25 15:56 | DRG 91 ==
LOC: EC 13:23 → 1SOBS 16:19 → OBSVTOIN 03-22 09:15 → 3SCARD 03-22 13:20
PROVIDERS: ADMIT Family Medicine; ATTEND Family Medicine
DX: G92 Toxic encephalopathy (principal); I21.4 Non-ST elevation (NSTEMI) myocardial infarction; N17.9 Acute kidney failure, unspecified; F05 Delirium due to known physiological condition; G89.29 Other chronic pain; M54.9 Dorsalgia, unspecified; J44.9 Chronic obstructive pulmonary disease, unspecified; I10 Essential (primary) hypertension; E03.9 Hypothyroidism, unspecified; R00.0 Tachycardia, unspecified; Z11.59 Encounter for screening for other viral diseases; M81.0 Age-related osteoporosis without current pathological fracture; R74.8 Abnormal levels of other serum enzymes; R47.1 Dysarthria and anarthria; R13.10 Dysphagia, unspecified; I08.1 Rheumatic disorders of both mitral and tricuspid valves; I27.20 Pulmonary hypertension, unspecified; W01.0XXA Fall on same level from slipping, tripping and stumbling without subsequent striking against object, initial encounter; D72.829 Elevated white blood cell count, unspecified; Y92.000 Kitchen of unspecified non-institutional (private) residence as the place of occurrence of the external cause; Z90.49 Acquired absence of other specified parts of digestive tract; Z90.710 Acquired absence of both cervix and uterus; Z79.899 Other long term (current) drug therapy; Z88.8 Allergy status to other drugs, medicaments and biological substances; Z88.0 Allergy status to penicillin; Z91.010 Allergy to peanuts; Z91.011 Allergy to milk products; Z90.89 Acquired absence of other organs; Z82.49 Family history of ischemic heart disease and other diseases of the circulatory system; Z87.81 Personal history of (healed) traumatic fracture; X50.1XXA Overexertion from prolonged static or awkward postures, initial encounter
CPT/HCPCS: 36415; 70450; 70551; 71046; 73502; 74230; 80048; 80053; 80061; 81003; 82550; 82607; 82746; 83605; 83735; 84100; 84443; 84484; 85025; 85027; 85610; 85730; 87040; 87086; 87635; 93005; 93306; 93880; 99285

== ENCOUNTER 2021-12-05 19:35 | Inpatient (IN) | payer MEDICARE, BC ==
[2021-12-05] MEDS ORDERED: IPRATROPIUM-ALBUTEROL 3 ML NEB INHALATION STA (19:45)
[2021-12-05] MEDS ORDERED: methylPREDNISolone SOD SUCCI 125 MG/2 ML VIAL IV STA (19:52)
--- NOTE | 2021-12-05 19:53 | ED ---
SOB HPI - General Stated Complaint: DONTE Time Seen by Provider: 12/05/21 19:36 Source: patient, EMS, RN notes reviewed - History of Present Illness Initial Comments: This is a pleasant 76-year-old female who arrives via EMS for progressive shortness of breath over the past 2 weeks. Patient has a history of COPD, hypertension, and thyroid disorder. Patient states that she's had a weak cough. Patient not vaccinated against COVID-19. Patient stopped smoking previously but is oxygen dependent on 2 L of O2 at home. She denies any chest pain. No known fever. When questioned, patient does state that she's had black stools. Patient is not on blood thinners. No headache, no fever or chills, no changes in vision or hearing, no sore throat or difficulty with speech, no neck pain, no chest pain, no abdominal pain, no nausea or vomiting, no changes in urination. Dark bowel movements, no numbness or tingling, no extremity pain, no skin rashes or lesions. MD Complaint: shortness of breath - Related Data Home Medications Medication Instructions Recorded Confirmed Escitalopram Oxalate [Lexapro] 10 mg PO HS 03/21/20 12/05/21 Budesonide [Pulmicort] 0.5 mg INHALATION RT-BID 12/05/21 12/05/21 Ferrous Sulfate [Feosol] 325 mg PO DAILY 12/05/21 12/05/21 Hydrocortisone Pr Cream 1 applic RECTAL DIRECTED PRN 12/05/21 12/05/21 [Proctosol-Hc 2.5%] Ipratropium-Albuterol Nebulize 3 ml INHALATION RT-QID 12/05/21 12/05/21 [Duoneb 0.5 mg-3 mg/3 ml Soln] Losartan Potassium 100 mg PO DAILY 12/05/21 12/05/21 Magnesium Hydroxide [Milk of 2,400 mg PO DAILY 12/05/21 12/05/21 Magnesia] Metoprolol Tartrate [Lopressor] 12.5 mg PO BID 12/05/21 12/05/21 Pantoprazole Sodium [Protonix] 40 mg PO BID 12/05/21 12/05/21 clonazePAM [KlonoPIN] 0.5 mg PO DAILY PRN 12/05/21 12/05/21 Previous Rx's Medication Instructions Recorded amLODIPine [Norvasc] 5 mg PO DAILY tab 03/24/20 Allergies Allergy/AdvReac Type Severity Reaction Status Date / Time iodine Allergy Anaphylaxis Verified 12/05/21 21:16 peanut Allergy Anaphylaxis Verified 12/05/21 21:16 Penicillins Allergy Anaphylaxis Verified 12/05/21 21:16 lactose AdvReac Nausea & Verified 12/05/21 21:16 Vomiting & Diarrhea Review of Systems ROS Statement: Those systems with pertinent positive or pertinent negative responses have been documented in the HPI. ROS Other: All systems not noted in ROS Statement are negative. Past Medical History Past Medical History: COPD, Hypertension, Thyroid Disorder Additional Past Medical History / Comment(s): colitis, OP History of Any Multi-Drug Resistant Organisms: None Reported Past Surgical History: Cholecystectomy, Hysterectomy Additional Past Surgical History / Comment(s): throidectomy Past Anesthesia/Blood Transfusion Reactions: No Reported Reaction Past Psychological History: No Psychological Hx Reported Smoking Status: Never smoker Past Alcohol Use History: None Reported Past Drug Use History: None Reported - Past Family History Father Family Medical History: No Reported History Mother Family Medical History: Hypertension General Exam - General Exam Comments Initial Comments: This is a cachectic appearing elderly female who appears greater than her stated age. Patient in distress due to breathing. Patient has evidence of pursed lip breathing and increased accessory muscle use. Vital signs reviewed. Patient does not appear to be toxic. Mild, nonproductive cough noted. Limitations: no limitations General appearance: in distress Head exam: Present: atraumatic, normocephalic, normal inspection Eye exam: Present: normal appearance, PERRL, EOMI. Absent: scleral icterus, conjunctival injection, periorbital swelling ENT exam: Present: normal exam, normal oropharynx, mucous membranes dry, mucous membranes moist Neck exam: Present: normal inspection, full ROM. Absent: tenderness, meningismus, lymphadenopathy Respiratory exam: Present: normal lung sounds bilaterally, accessory muscle use, prolonged expiratory. Absent: respiratory distress, wheezes, rales, rhonchi, stridor, chest wall tenderness, decreased breath sounds Cardiovascular Exam: Present: regular rate, normal rhythm, normal heart sounds. Absent: systolic murmur, diastolic murmur, rubs, gallop, clicks GI/Abdominal exam: Present: soft, normal bowel sounds. Absent: distended, tenderness, guarding, rebound, rigid Rectal exam: Present: normal rectal tone, black stool, hemorrhoids. Absent: decreased rectal tone, bloody stool, fecal impaction, mass, tenderness Extremities exam: Present: normal inspection, full ROM, normal capillary refill. Absent: tenderness, pedal edema, joint swelling, calf tenderness Back exam: Present: normal inspection Neurological exam: Present: alert, oriented X3, CN II-XII intact Psychiatric exam: Present: normal affect, normal mood Skin exam: Present: warm, dry, intact. Absent: normal color (Patient appears to be pale), rash, cyanosis, diaphoretic, erythema, urticaria, vesicles, petechiae, mottled, abrasion Course Vital Signs 12/05/21 12/05/21 12/05/21 19:37 19:55 20:00 Pulse Rate 96 100 104 H Respiratory 24 Rate Blood Pressure 139/84 O2 Sat by Pulse 98 Oximetry 12/05/21 12/05/21 12/05/21 20:42 21:07 21:14 Pulse Rate 100 100 Respiratory Rate Blood Pressure O2 Sat by Pulse 96 Oximetry - Reevaluation(s) Reevaluation #1: 12/05/21 20:26 Medical record is reviewed Symptoms are mildly improved here in the emergency department, with her breathing is better. Patient is informed of results and questions answered Patient in no distress Reevaluation #2: 12/05/21 21:19 Still awaiting callback from the patient's primary care physician Medical Decision Making - Medical Decision Making Patient was told to return to the ER for any signs or symptoms worsen. Told to return immediately if any other problems arise. All questions answered. Treatment plan discussed. Patient in agreement Every effort has been made to ensure accuracy of this dictation. However, due to the limitations of electronic medical records and dictation devices, errors in charting still occur. - Lab Data Result diagrams: 12/05/21 20:02 12/05/21 20:02 Lab Results 12/05/21 12/05/21 12/05/21 Range/Units 20:02 20:02 20:02 WBC 5.8 (3.8-10.6) k/uL RBC 4.01 (3.80-5.40) m/uL Hgb 12.5 (11.4-16.0) gm/dL Hct 39.9 (34.0-46.0) % MCV 99.4 (80.0-100.0) fL MCH 31.2 (25.0-35.0) pg MCHC 31.4 (31.0-37.0) g/dL RDW 14.1 (11.5-15.5) % Plt Count 189 (150-450) k/uL MPV 8.0 Neutrophils % 61 % Lymphocytes % 24 % Monocytes % 7 % Eosinophils % 4 % Basophils % 1 % Neutrophils # 3.5 (1.3-7.7) k/uL Lymphocytes # 1.4 (1.0-4.8) k/uL Monocytes # 0.4 (0-1.0) k/uL Eosinophils # 0.3 (0-0.7) k/uL Basophils # 0.0 (0-0.2) k/uL Hypochromasia Slight PT 10.9 (9.0-12.0) sec INR 1.0 (<1.2) APTT 26.3 (22.0-30.0) sec Sodium 141 (137-145) mmol/L Potassium 3.4 L (3.5-5.1) mmol/L Chloride 106 (98-107) mmol/L Carbon Dioxide 36 H (22-30) mmol/L Anion Gap -1 mmol/L BUN 15 (7-17) mg/dL Creatinine 0.62 (0.52-1.04) mg/dL Est GFR (CKD-EPI)AfAm >90 (>60 ml/min/1.73 sqM) Est GFR (CKD-EPI)NonAf 87 (>60 ml/min/1.73 sqM) Glucose 108 H (74-99) mg/dL Calcium 8.7 (8.4-10.2) mg/dL Magnesium 1.9 (1.6-2.3) mg/dL Total Bilirubin 0.5 (0.2-1.3) mg/dL AST 74 H (14-36) U/L ALT 50 H (4-34) U/L Alkaline Phosphatase 97 (38-126) U/L Troponin I (0.000-0.034) ng/mL NT-Pro-B Natriuret Pep pg/mL Total Protein 5.8 L (6.3-8.2) g/dL Albumin 2.7 L (3.5-5.0) g/dL Stool Occult Blood (Negative) Coronavirus (PCR) (Not Detectd) Blood Type Blood Type Confirm Blood Type Recheck Bld Type Recheck Status Antibody Screen Spec Expiration Date 12/05/21 12/05/21 12/05/21 Range/Units 20:02 20:02 20:02 WBC (3.8-10.6) k/uL RBC (3.80-5.40) m/uL Hgb (11.4-16.0) gm/dL Hct (34.0-46.0) % MCV (80.0-100.0) fL MCH (25.0-35.0) pg MCHC (31.0-37.0) g/dL RDW (11.5-15.5) % Plt Count (150-450) k/uL MPV Neutrophils % % Lymphocytes % % Monocytes % % Eosinophils % % Basophils % % Neutrophils # (1.3-7.7) k/uL Lymphocytes # (1.0-4.8) k/uL Monocytes # (0-1.0) k/uL Eosinophils # (0-0.7) k/uL Basophils # (0-0.2) k/uL Hypochromasia PT (9.0-12.0) sec INR (<1.2) APTT (22.0-30.0) sec Sodium (137-145) mmol/L Potassium (3.5-5.1) mmol/L Chloride (98-107) mmol/L Carbon Dioxide (22-30) mmol/L Anion Gap mmol/L BUN (7-17) mg/dL Creatinine (0.52-1.04) mg/dL Est GFR (CKD-EPI)AfAm (>60 ml/min/1.73 sqM) Est GFR (CKD-EPI)NonAf (>60 ml/min/1.73 sqM) Glucose (74-99) mg/dL Calcium (8.4-10.2) mg/dL Magnesium (1.6-2.3) mg/dL Total Bilirubin (0.2-1.3) mg/dL AST (14-36) U/L ALT (4-34) U/L Alkaline Phosphatase (38-126) U/L Troponin I <0.012 (0.000-0.034) ng/mL NT-Pro-B Natriuret Pep 488 pg/mL Total Protein (6.3-8.2) g/dL Albumin (3.5-5.0) g/dL Stool Occult Blood Negative (Negative) Coronavirus (PCR) (Not Detectd) Blood Type Blood Type Confirm Blood Type Recheck Bld Type Recheck Status Antibody Screen Spec Expiration Date 12/05/21 12/05/21 12/05/21 Range/Units 20:02 20:02 20:04 WBC (3.8-10.6) k/uL RBC (3.80-5.40) m/uL Hgb (11.4-16.0) gm/dL Hct (34.0-46.0) % MCV (80.0-100.0) fL MCH (25.0-35.0) pg MCHC (31.0-37.0) g/dL RDW (11.5-15.5) % Plt Count (150-450) k/uL MPV Neutrophils % % Lymphocytes % % Monocytes % % Eosinophils % % Basophils % % Neutrophils # (1.3-7.7) k/uL Lymphocytes # (1.0-4.8) k/uL Monocytes # (0-1.0) k/uL Eosinophils # (0-0.7) k/uL Basophils # (0-0.2) k/uL Hypochromasia PT (9.0-12.0) sec INR (<1.2) APTT (22.0-30.0) sec Sodium (137-145) mmol/L Potassium (3.5-5.1) mmol/L Chloride (98-107) mmol/L Carbon Dioxide (22-30) mmol/L Anion Gap mmol/L BUN (7-17) mg/dL Creatinine (0.52-1.04) mg/dL Est GFR (CKD-EPI)AfAm (>60 ml/min/1.73 sqM) Est GFR (CKD-EPI)NonAf (>60 ml/min/1.73 sqM) Glucose (74-99) mg/dL Calcium (8.4-10.2) mg/dL Magnesium (1.6-2.3) mg/dL Total Bilirubin (0.2-1.3) mg/dL AST (14-36) U/L ALT (4-34) U/L Alkaline Phosphatase (38-126) U/L Troponin I (0.000-0.034) ng/mL NT-Pro-B Natriuret Pep pg/mL Total Protein (6.3-8.2) g/dL Albumin (3.5-5.0) g/dL Stool Occult Blood (Negative) Coronavirus (PCR) Not Detected (Not Detectd) Blood Type O Positive Blood Type Confirm O Positive Blood Type Recheck No Previous Record Bld Type Recheck Status CABO Indicated Antibody Screen NEGATIVE Spec Expiration Date 12/08/20212301 - EKG Data EKG Comments: EKG shows sinus tachycardia at a rate of 100. Possible right ventricular conduction delay with RSR pattern in V1 and V2. No evidence of ST elevation or ST depression. Normal axis. Normal intervals. Disposition Clinical Impression: COPD with exacerbation Disposition: ADMITTED IP TO THIS HOSP Condition: Fair Is patient prescribed a controlled substance at d/c from ED?: No Referrals: Linus Simon DO [Primary Care Provider] - 1-2 days Time of Disposition: 20:27 Decision to Admit Reason: Admit from EC Decision Time: 20:27
[2021-12-05 20:12] LABS: Basophils % (A) 1 %; Eosinophils # (A) 0.3 k/uL (0-0.7); Eosinophils % (A) 4 %; HCT 39.9 % (34.0-46.0); HGB 12.5 gm/dL (11.4-16.0); Hypochromasia Slight; Lymphocytes # (A) 1.4 k/uL (1.0-4.8); Lymphocytes % (A) 24 %; MCH 31.2 pg (25.0-35.0); MCHC 31.4 g/dL (31.0-37.0); MCV 99.4 fL (80.0-100.0); Monocytes # (A) 0.4 k/uL (0-1.0); Monocytes % (A) 7 %; Neutrophils # (A) 3.5 k/uL (1.3-7.7); Neutrophils % (A) 61 %; Platelet Count 189 k/uL (150-450); RBC 4.01 m/uL (3.80-5.40); RDW 14.1 % (11.5-15.5); WBC 5.8 k/uL (3.8-10.6)
--- NOTE | 2021-12-05 20:18 | XR ---
EXAMINATION TYPE: XR chest 1V portable DATE OF EXAM: 12/05/2021 COMPARISON: 03/21/2020 HISTORY: Short of breath TECHNIQUE: Single view FINDINGS: Heart size is normal. There is pulmonary hyperinflation with some flattening of the diaphra gm. Thoracic aorta is atheromatous. There is prominent right pulmonary hilum consistent with pulmonar y hypertension and large right pulmonary artery. There is no pleural effusion. Bones are osteopenic. IMPRESSION: No active cardiopulmonary disease. There is evidence of COPD. No adverse change.
[2021-12-05 20:20] LABS: ALT 50 U/L (4-34); AST 74 U/L (14-36); African American GFR (CKD) >90 (>60 ml/min/1.73 sqM); Albumin 2.7 g/dL (3.5-5.0); Alkaline Phosphatase 97 U/L (38-126); Anion Gap -1 mmol/L; Blood Urea Nitrogen 15 mg/dL (7-17); Calcium 8.7 mg/dL (8.4-10.2); Carbon Dioxide 36 mmol/L (22-30); Chloride 106 mmol/L (98-107); Glucose 108 mg/dL (74-99); Magnesium 1.9 mg/dL (1.6-2.3); Non-African American GFR(CKD) 87 (>60 ml/min/1.73 sqM); Potassium 3.4 mmol/L (3.5-5.1); Sodium 141 mmol/L (137-145); Total Bilirubin 0.5 mg/dL (0.2-1.3); Total Protein 5.8 g/dL (6.3-8.2)
[2021-12-05 20:21] LABS: Partial Thromboplastin Time 26.3 sec (22.0-30.0); Prothrombin Time 10.9 sec (9.0-12.0)
[2021-12-05] MEDS ORDERED: ALBUTEROL NEBULIZED 2.5 MG/3 ML INHALATION STA (20:25)
[2021-12-05] MEDS ORDERED: INSULIN ASPART (NovoLOG) 100 UNIT/ML VIAL SQ PRN (21:20)
[2021-12-05] MEDS ORDERED: POTASSIUM CHLORIDE ER 20 MEQ TAB.ER PO STA (21:41)
[2021-12-05] MEDS ORDERED: IPRATROPIUM-ALBUTEROL 3 ML NEB INHALATION PRN (22:44)
[2021-12-05] MEDS: AZITHROMYCIN 500 MG TAB PO SCH (23:29)
[2021-12-05] MEDS: methylPREDNISolone SOD SUCCI 125 MG/2 ML VIAL IV SCH (23:33)
[2021-12-06 00:08] LABS: Amorphous Sediment,Urine Rare /hpf; Appearance,Urine Cloudy (Clear); Bacteria,Urine Rare /hpf; Bilirubin,Urine Negative (Negative); Blood,Urine Small (Negative); Color,Urine Yellow; Glucose,Urine (UA) Negative (Negative); Hyaline Casts,Urine 15 /lpf (0-2); Ketones,Urine Negative (Negative); Leukocyte Esterase,Urine Small (Negative); Mucus,Urine Occasional /hpf; Nitrite,Urine Negative (Negative); Protein,Urine Trace (Negative); RBC,Urine 17 /hpf (0-5); Specific Gravity,Urine 1.015 (1.001-1.035); Squamous Epithelial Cell,Urine 1 /hpf (0-4); Urobilinogen,Urine <2.0 mg/dL (<2.0); WBC,Urine 6 /hpf (0-5)
[2021-12-06] MEDS: methylPREDNISolone SOD SUCCI 125 MG/2 ML VIAL IV SCH ×4 (05:59→22:56)
[2021-12-06 06:09] LABS: Glucose,Whole Blood 214 mg/dL (75-99)
[2021-12-06] MEDS: BUDESONIDE 0.5 MG/2 ML NEBU INHALATION SCH ×2 (06:09→19:52)
[2021-12-06] MEDS: IPRATROPIUM-ALBUTEROL 3 ML NEB INHALATION SCH ×5 (06:09→22:38)
[2021-12-06 06:28] LABS: Basophils % (A) 0 %; Eosinophils % (A) 0 %; HCT 39.9 % (34.0-46.0); Hypochromasia Moderate; Lymphocytes # (A) 0.4 k/uL (1.0-4.8); Lymphocytes % (A) 7 %; MCH 30.4 pg (25.0-35.0); MCHC 30.1 g/dL (31.0-37.0); MCV 100.7 fL (80.0-100.0); Mean Platelet Volume 8.8; Monocytes # (A) 0.1 k/uL (0-1.0); Monocytes % (A) 2 %; Neutrophils # (A) 4.5 k/uL (1.3-7.7); Neutrophils % (A) 91 %; Platelet Count 172 k/uL (150-450); RBC 3.96 m/uL (3.80-5.40); RDW 13.6 % (11.5-15.5)
[2021-12-06 06:43] LABS: ALT 48 U/L (4-34); AST 71 U/L (14-36); African American GFR (CKD) >90 (>60 ml/min/1.73 sqM); Albumin 2.7 g/dL (3.5-5.0); Alkaline Phosphatase 86 U/L (38-126); Anion Gap 5 mmol/L; Blood Urea Nitrogen 21 mg/dL (7-17); Calcium 8.8 mg/dL (8.4-10.2); Carbon Dioxide 30 mmol/L (22-30); Chloride 107 mmol/L (98-107); Glucose 227 mg/dL (74-99); Non-African American GFR(CKD) 86 (>60 ml/min/1.73 sqM); Potassium 4.6 mmol/L (3.5-5.1); Sodium 142 mmol/L (137-145); Total Bilirubin 0.5 mg/dL (0.2-1.3); Total Protein 5.9 g/dL (6.3-8.2)
[2021-12-06] MEDS ORDERED: ALBUTEROL NEBULIZED 2.5 MG/3 ML INHALATION SCH (08:00)
[2021-12-06] MEDS: AZITHROMYCIN 500 MG TAB PO SCH (10:05)
--- NOTE | 2021-12-06 12:49 | P.CNPUL ---
History of Present Illness Consult date: 12/06/21 Requesting physician: Josué Simon Reason for consult: dyspnea, COPD Chief complaint: Shortness of breath History of present illness: This is a very pleasant 76-year-old female patient who has a past medical history of chronic tobacco dependence, chronic obstructive pulmonary disease, hypertension, depression, colitis. She had been seen in our office by Dr. Andres in July 2019. She has severe end-stage oxygen-dependent chronic obstructive pulmonary disease. Last pulmonary function test in 2018 revealed severe obstructive airway disease/emphysema with an FEV1 value of 0.52 L and 25% of predicted. She has been maintained on DuoNeb inhalations, Pulmicort in halations. She presented here to the emergency room last evening with a 2 week history of progressive shortness of breath. She has a weak nonproductive cough. She is not vaccinated against COVID-19. Chest x-ray reveals no acute cardiopulmonary process. Evidence of COPD. White count 5.0. Hemoglobin 12.0. Sodium 142. Potassium 4.6. Bicarb 30. BUN 21. Creatinine 0.63. Glucose 227. AST 71. ALT 48. Urinalysis cloudy with small amount of blood and rare bacteria. Stool for occult blood was negative. Current virus by PCR negative. Troponin negative 1. ProBNP 488. She is seen today in consultation in the emergency department. Currently resting fairly comfortably in bed. She is maintaining O2 saturations in the 90s on 3 L/m per nasal cannula. Afebrile. Hemodynamically stable. She's been initiated on DuoNeb inhalations, Pulmicort, IV Solu-Medrol. Review of Systems REVIEW OF SYSTEMS: CONSTITUTIONAL: Denies any recent significant weight loss or weight gain. EYES: Denies change in vision. EARS, NOSE, MOUTH, THROAT: Denies headaches, denies sore throat. CARDIOVASCULAR: Denies chest pain, palpitations or syncopal episodes. RESPIRATORY: Positive for shortness of breath, no cough, congestion no hemoptysis. GASTROINTESTINAL: Denies change in appetite, denies abdominal pain GENITOURINARY: Denies hematuria, denies infections. MUSKULOSKELETAL: Denies pain, denies swelling. INTEGUMENTARY: Denies rash, denies eczema. NEUROLOGICAL: Denies recent memory loss, no recent seizure activity. PSYCHIATRIC: Denies anxiety, denies depression. HEMATOLOGIC/LYMPHATIC: Denies anemia, denies enlarged lymph nodes. Past Medical History Past Medical History: COPD, Hypertension, Thyroid Disorder Additional Past Medical History / Comment(s): colitis, OP History of Any Multi-Drug Resistant Organisms: None Reported Past Surgical History: Cholecystectomy, Hysterectomy Additional Past Surgical History / Comment(s): throidectomy Past Anesthesia/Blood Transfusion Reactions: No Reported Reaction Past Psychological History: No Psychological Hx Reported Smoking Status: Never smoker Past Alcohol Use History: None Reported Past Drug Use History: None Reported - Past Family History Father Family Medical History: No Reported History Mother Family Medical History: Hypertension Medications and Allergies Home Medications Medication Instructions Recorded Confirmed Type Escitalopram Oxalate [Lexapro] 10 mg PO HS 03/21/20 12/05/21 History amLODIPine [Norvasc] 5 mg PO DAILY tab 03/24/20 12/05/21 Rx Budesonide [Pulmicort] 0.5 mg INHALATION RT-BID 12/05/21 12/05/21 History Ferrous Sulfate [Feosol] 325 mg PO DAILY 12/05/21 12/05/21 History Hydrocortisone Pr Cream 1 applic RECTAL DIRECTED PRN 12/05/21 12/05/21 History [Proctosol-Hc 2.5%] Ipratropium-Albuterol Nebulize 3 ml INHALATION RT-QID 12/05/21 12/05/21 History [Duoneb 0.5 mg-3 mg/3 ml Soln] Losartan Potassium 100 mg PO DAILY 12/05/21 12/05/21 History Magnesium Hydroxide [Milk of 2,400 mg PO DAILY 12/05/21 12/05/21 History Magnesia] Metoprolol Tartrate [Lopressor] 12.5 mg PO BID 12/05/21 12/05/21 History Pantoprazole Sodium [Protonix] 40 mg PO BID 12/05/21 12/05/21 History clonazePAM [KlonoPIN] 0.5 mg PO DAILY PRN 12/05/21 12/05/21 History Allergies Allergy/AdvReac Type Severity Reaction Status Date / Time iodine Allergy Anaphylaxis Verified 12/05/21 21:16 peanut Allergy Anaphylaxis Verified 12/05/21 21:16 Penicillins Allergy Anaphylaxis Verified 12/05/21 21:16 lactose AdvReac Nausea & Verified 12/05/21 21:16 Vomiting & Diarrhea Physical Exam Vitals: Vital Signs Temp Pulse Pulse Resp BP BP Pulse Ox 12/06/21 11:54 94 12/06/21 11:52 97.6 F 100 16 135/74 100 12/06/21 11:46 92 12/06/21 06:28 98 12/06/21 06:09 100 12/06/21 06:00 96 24 118/70 100 12/06/21 03:00 94 18 91/53 96 12/06/21 02:00 96 18 105/62 99 12/06/21 00:00 94 20 101/61 96 12/05/21 23:27 100 20 110/65 96 12/05/21 21:14 100 12/05/21 21:07 100 12/05/21 20:42 96 12/05/21 20:00 104 H 12/05/21 19:55 100 12/05/21 19:37 96 24 139/84 98 Intake and Output 12/05/21 12/06/21 12/06/21 22:59 06:59 14:59 Other: Weight 44.452 kg GENERAL EXAM: Alert, frail, cachectic 76-year-old female patient, on 3 L nasal cannula, comfortable in no apparent distress. HEAD: Normocephalic. EYES: Normal reaction of pupils, equal size. NOSE: Clear with pink turbinates. THROAT: No erythema or exudates. NECK: No masses, no JVD. CHEST: No chest wall deformity. LUNGS: Equal air entry with no crackles, wheeze, rhonchi or dullness. Diminished. CVS: S1 and S2 normal with no audible murmur, regular rhythm. ABDOMEN: No hepatosplenomegaly, normal bowel sounds, no guarding or rigidity. SPINE: No scoliosis or deformity SKIN: No rashes CENTRAL NERVOUS SYSTEM: No focal deficits, tone is normal in all 4 extremities. EXTREMITIES: There is no peripheral edema. No clubbing, no cyanosis. Peripheral pulses are intact. Results - Laboratory Findings CBC and BMP: 12/06/21 06:09 12/06/21 06:09 PT/INR, D-dimer PT 10.9 sec (9.0-12.0) 12/05/21 20:02 INR 1.0 (<1.2) 12/05/21 20:02 Abnormal lab findings: Abnormal Labs 12/05/21 12/05/21 12/06/21 20:02 23:20 06:07 MCV MCHC Lymphocytes # Potassium 3.4 L Carbon Dioxide 36 H BUN Glucose 108 H POC Glucose (mg/dL) 214 H AST 74 H ALT 50 H Total Protein 5.8 L Albumin 2.7 L Urine Appearance Cloudy H Urine Protein Trace H Urine Blood Small H Ur Leukocyte Esterase Small H Urine RBC 17 H Urine WBC 6 H Amorphous Sediment Rare H Urine Bacteria Rare H Hyaline Casts 15 H Urine Mucus Occasional H 12/06/21 12/06/21 06:09 06:09 MCV 100.7 H MCHC 30.1 L Lymphocytes # 0.4 L Potassium Carbon Dioxide BUN 21 H Glucose 227 H POC Glucose (mg/dL) AST 71 H ALT 48 H Total Protein 5.9 L Albumin 2.7 L Urine Appearance Urine Protein Urine Blood Ur Leukocyte Esterase Urine RBC Urine WBC Amorphous Sediment Urine Bacteria Hyaline Casts Urine Mucus - Diagnostic Findings Chest x-ray: image reviewed Assessment and Plan Assessment: 1 Acute exacerbation of severe oxygen dependent chronic obstructive pulmonary disease. FEV1 value 25% in 2018. No evidence of pneumonia. CoVID 19 screen negative. 2 History of 30+ years of smoking. 3 Anorexia/cachexia syndrome. Current BMI 16.8 kg/m 4 Hypothyroidism status post thyroidectomy 5 History of peripheral arterial occlusive disease 6 Hypertension 7 History of colitis Plan: The patient was seen and evaluated Chest x-ray and labs reviewed Continue DuoNeb inhalations, Pulmicort inhalations, IV Solu medrol Empiric antibiotics in the form of azithromycin We will continue to follow and make further recommendations based on her clinical status I have personally seen and examined the patient, performed the documentation and the assessment and plan as written. Number of minutes spent on the visit: 20.
[2021-12-06 17:05] LABS: Glucose,Whole Blood 230 mg/dL (75-99)
[2021-12-06] MEDS ORDERED: clonazePAM 0.5 MG TAB PO PRN (17:43)
[2021-12-06] MEDS: LOSARTAN 50 MG TAB PO SCH (17:52)
[2021-12-06] MEDS: amLODIPine 5 MG TAB PO SCH (17:52)
[2021-12-06] MEDS: FERROUS SULFATE 325 MG TAB PO SCH (17:52)
[2021-12-06] MEDS: MAGNESIUM HYDROXIDE 2,400 MG/10 ML CUP PO SCH (19:06)
[2021-12-06] MEDS ORDERED: BUDESONIDE 0.5 MG/2 ML NEBU INHALATION SCH (20:00)
[2021-12-06] MEDS: ESCITALOPRAM 10 MG TAB PO SCH (20:44)
[2021-12-06] MEDS: METOPROLOL TARTRATE 25 MG TAB PO SCH (20:44)
[2021-12-06] MEDS: PANTOPRAZOLE 40 MG TABLET PO SCH (20:45)
--- NOTE | 2021-12-06 20:59 | P.HPIM ---
History of Present Illness H&P Date: 12/06/21 This is a pleasant 76-year-old female who was admitted for shortness of breath over the past 2 weeks. Patient has a history of COPD, hypertension, and thyroid disorder. Patient states that she's had a weak cough. Patient not vaccinated against COVID-19. Patient stopped smoking previously but is oxygen dependent on 2 L of O2 at home. She denies any chest pain. No known fever. When questioned, patient does state that she's had black stools but she is on iron. Patient is not on blood thinners. Review of Systems Constitutional: Reports chills, Reports fever, Reports malaise Eyes: denies blurred vision, denies pain Ears, nose, mouth and throat: Denies headache, Denies sore throat Cardiovascular: Reports dyspnea on exertion, Reports shortness of breath Respiratory: Reports congestion, Reports cough, Reports home oxygen, Reports wheezing Gastrointestinal: Denies abdominal pain, Denies diarrhea, Denies nausea, Denies vomiting Genitourinary: Denies dysuria, Denies hematuria Musculoskeletal: Reports frequent falls, Reports loss of height Integumentary: Denies pruritus, Denies rash Neurological: Denies numbness, Denies weakness Psychiatric: Denies anxiety, Denies depression Endocrine: Denies fatigue, Denies weight change Past Medical History Past Medical History: COPD, Hypertension, Pneumonia, Thyroid Disorder Additional Past Medical History / Comment(s): Chronic hypoxic respiratory failure, home oxygen at 2L/NC, pulmonary HTN, anemia, colitis, IBS, sinus tachycardia, cardiac valve disease, advanced osteoporosis, vertebral compression fractures, chronic back pain, protein calorie malnutrition, hypothyroid, sinus issues, History of Any Multi-Drug Resistant Organisms: None Reported Past Surgical History: Cholecystectomy, Hysterectomy Additional Past Surgical History / Comment(s): Partial thyroidectomy, EGD, colonoscopies, exploratory laparotomy Past Anesthesia/Blood Transfusion Reactions: No Reported Reaction Additional Past Anesthesia/Blood Transfusion Reaction / Comment(s): Slow to wake Past Psychological History: No Psychological Hx Reported Additional Psychological History / Comment(s): Pt resides with her spouse. Pt was using a rollator to ambulate but lately she has been unable, spouse pushes her around on the walker's seat. She recently establisched with [facility]. She has home care thru [facility]. Spouse states they are going to be getting information about hospice soon, they have not decided to have hospice as yet. She has oxygen and a nebulizer. Her spouse mainly is her caregiver, Smoking Status: Former smoker Past Alcohol Use History: None Reported Additional Past Alcohol Use History / Comment(s): Pt started smoking in 1963 and quit in 2018. Past Drug Use History: None Reported - Past Family History Father Family Medical History: No Reported History Mother Family Medical History: Hypertension Medications and Allergies Home Medications Medication Instructions Recorded Confirmed Type Escitalopram Oxalate [Lexapro] 10 mg PO HS 03/21/20 12/05/21 History amLODIPine [Norvasc] 5 mg PO DAILY tab 03/24/20 12/05/21 Rx Budesonide [Pulmicort] 0.5 mg INHALATION RT-BID 12/05/21 12/05/21 History Ferrous Sulfate [Feosol] 325 mg PO DAILY 12/05/21 12/05/21 History Hydrocortisone Pr Cream 1 applic RECTAL DIRECTED PRN 12/05/21 12/05/21 History [Proctosol-Hc 2.5%] Ipratropium-Albuterol Nebulize 3 ml INHALATION RT-QID 12/05/21 12/05/21 History [Duoneb 0.5 mg-3 mg/3 ml Soln] Losartan Potassium 100 mg PO DAILY 12/05/21 12/05/21 History Magnesium Hydroxide [Milk of 2,400 mg PO DAILY 12/05/21 12/05/21 History Magnesia] Metoprolol Tartrate [Lopressor] 12.5 mg PO BID 12/05/21 12/05/21 History Pantoprazole Sodium [Protonix] 40 mg PO BID 12/05/21 12/05/21 History clonazePAM [KlonoPIN] 0.5 mg PO DAILY PRN 12/05/21 12/05/21 History Allergies Allergy/AdvReac Type Severity Reaction Status Date / Time iodine Allergy Anaphylaxis Verified 12/05/21 21:16 peanut Allergy Anaphylaxis Verified 12/05/21 21:16 Penicillins Allergy Anaphylaxis Verified 12/05/21 21:16 lactose AdvReac Nausea & Verified 12/05/21 21:16 Vomiting & Diarrhea Physical Exam Osteopathic Statement: *. No significant issues noted on an osteopathic structural exam other than those noted in the History and Physical/Consult. Vitals: Vital Signs Temp Pulse Pulse Resp BP BP Pulse Ox 12/06/21 16:03 96 12/06/21 15:50 96 12/06/21 11:54 94 12/06/21 11:52 97.6 F 100 16 135/74 100 12/06/21 11:46 92 12/06/21 08:00 100 16 12/06/21 06:28 98 12/06/21 06:09 100 12/06/21 06:00 96 24 118/70 100 12/06/21 03:00 94 18 91/53 96 12/06/21 02:00 96 18 105/62 99 12/06/21 00:00 94 20 101/61 96 12/05/21 23:27 100 20 110/65 96 12/05/21 21:14 100 12/05/21 21:07 100 12/05/21 20:42 96 12/05/21 20:00 104 H 12/05/21 19:55 100 12/05/21 19:37 96 24 139/84 98 Intake and Output 12/06/21 12/06/21 12/06/21 06:59 14:59 22:59 Other: Weight 44.452 kg GENERAL: This is a [id number] in no apparent distress at the time of examination. Pleasant and cooperative. HEENT: Head is atraumatic, normocephalic. Pupils are equal, round, and reactive to light. Sclerae anicteric. Conjunctivae are clear. Neck is supple. RESPIRATORY: Positive wheezing and rhonchi bilateral CARDIOVASCULAR: Regular rate and rhythm. S1 and S2 noted. No systolic or diastolic murmur auscultated. No JVD noted. No S3 or S4 noted. GASTROINTESTINAL: No distention noted. Abdomen soft and round. Normal active bowel sounds auscultated x 4 quadrants. No pain or tenderness noted upon palpation. INTEGUMENTARY: No cyanosis. No jaundice. No rashes noted. No cellulitis noted. EXTREMITIES: 2+ peripheral pulses. No evidence of peripheral edema. No calf tenderness noted. NEUROLOGIC: Cranial nerves II-XII intact. PSYCHIATRIC: Awake, alert, and oriented X 3. Appropriate affect. Intact judgement and insight. Results CBC & Chem 7: 12/06/21 06:09 12/06/21 06:09 Labs: Abnormal Lab Results - Last 24 Hours (Table) 12/05/21 12/05/21 12/06/21 Range/Units 20:02 23:20 06:07 MCV (80.0-100.0) fL MCHC (31.0-37.0) g/dL Lymphocytes # (1.0-4.8) k/uL Potassium 3.4 L (3.5-5.1) mmol/L Carbon Dioxide 36 H (22-30) mmol/L BUN (7-17) mg/dL Glucose 108 H (74-99) mg/dL POC Glucose (mg/dL) 214 H (75-99) mg/dL AST 74 H (14-36) U/L ALT 50 H (4-34) U/L Total Protein 5.8 L (6.3-8.2) g/dL Albumin 2.7 L (3.5-5.0) g/dL Urine Appearance Cloudy H (Clear) Urine Protein Trace H (Negative) Urine Blood Small H (Negative) Ur Leukocyte Esterase Small H (Negative) Urine RBC 17 H (0-5) /hpf Urine WBC 6 H (0-5) /hpf Amorphous Sediment Rare H (None) /hpf Urine Bacteria Rare H (None) /hpf Hyaline Casts 15 H (0-2) /lpf Urine Mucus Occasional H (None) /hpf 12/06/21 12/06/21 Range/Units 06:09 06:09 MCV 100.7 H (80.0-100.0) fL MCHC 30.1 L (31.0-37.0) g/dL Lymphocytes # 0.4 L (1.0-4.8) k/uL Potassium (3.5-5.1) mmol/L Carbon Dioxide (22-30) mmol/L BUN 21 H (7-17) mg/dL Glucose 227 H (74-99) mg/dL POC Glucose (mg/dL) (75-99) mg/dL AST 71 H (14-36) U/L ALT 48 H (4-34) U/L Total Protein 5.9 L (6.3-8.2) g/dL Albumin 2.7 L (3.5-5.0) g/dL Urine Appearance (Clear) Urine Protein (Negative) Urine Blood (Negative) Ur Leukocyte Esterase (Negative) Urine RBC (0-5) /hpf Urine WBC (0-5) /hpf Amorphous Sediment (None) /hpf Urine Bacteria (None) /hpf Hyaline Casts (0-2) /lpf Urine Mucus (None) /hpf Thrombosis Risk Factor Assmnt - Choose All That Apply Any of the Below Risk Factors Present?: Yes Each Factor Represents 1 point: Abnormal pulmonary function (COPD), Serious lung disease incl. pneumonia (< 1month) Other Risk Factors: Yes Each Risk Factor Represents 3 Points: Age 75 years or older Other congenital or acquired thrombophilia - If yes, enter type in comment: No Thrombosis Risk Factor Assessment Total Risk Factor Score: 5 Thrombosis Risk Factor Assessment Level: High Risk Assessment and Plan (1) COPD with exacerbation Current Visit: Yes Status: Acute Code(s): J44.1 - CHRONIC OBSTRUCTIVE PULMONARY DISEASE W (ACUTE) EXACERBATION SNOMED Code(s): 434301518 (2) Community acquired bacterial pneumonia Current Visit: No Status: Acute Code(s): J15.9 - UNSPECIFIED BACTERIAL PN EUMONIA SNOMED Code(s): 442513095 (3) Fall Current Visit: No Status: Acute Code(s): W19.XXXA - UNSPECIFIED FALL, INITIAL ENCOUNTER SNOMED Code(s): 0116860 (4) Hypertension Current Visit: No Status: Acute Code(s): I10 - ESSENTIAL (PRIMARY) HYPERTENSION SNOMED Code(s): 57740377 (5) Lumbar degenerative disc disease Current Visit: No Status: Acute Code(s): M51.36 - OTHER INTERVERTEBRAL DISC DEGENERATION, LUMBAR REGION SNOMED Code(s): 40992799 Plan: Admit patient with full pulmonary consultation and progress will continue to follow patient's progress throughout her stay oxygen and hydration
[2021-12-06 23:18] LABS: Glucose,Whole Blood 123 mg/dL (75-99)
[2021-12-07 01:46] LABS: Glucose,Whole Blood 125 mg/dL (75-99)
[2021-12-07] MEDS: methylPREDNISolone SOD SUCCI 125 MG/2 ML VIAL IV SCH ×2 (05:35→12:31)
[2021-12-07 07:15] LABS: Glucose,Whole Blood 116 mg/dL (75-99)
[2021-12-07] MEDS: INSULIN ASPART (NovoLOG) 100 UNIT/ML VIAL SQ SCH ×4 (08:12→21:14)
[2021-12-07] MEDS: LOSARTAN 50 MG TAB PO SCH (08:14)
[2021-12-07] MEDS: FERROUS SULFATE 325 MG TAB PO SCH (08:14)
[2021-12-07] MEDS: PANTOPRAZOLE 40 MG TABLET PO SCH ×2 (08:15→21:14)
[2021-12-07] MEDS: METOPROLOL TARTRATE 25 MG TAB PO SCH ×2 (08:15→21:14)
[2021-12-07] MEDS: AZITHROMYCIN 500 MG TAB PO SCH (08:15)
[2021-12-07] MEDS: amLODIPine 5 MG TAB PO SCH (08:15)
[2021-12-07] MEDS: MAGNESIUM HYDROXIDE 2,400 MG/10 ML CUP PO SCH (08:16)
[2021-12-07] MEDS: IPRATROPIUM-ALBUTEROL 3 ML NEB INHALATION SCH ×6 (08:28→19:23)
[2021-12-07 11:23] LABS: Glucose,Whole Blood 128 mg/dL (75-99)
--- NOTE | 2021-12-07 12:12 | P.PN ---
Subjective Progress Note Date: 12/07/21 Principal diagnosis: COPD exacerbation This is a very pleasant 76-year-old female patient who has a past medical history of chronic tobacco dependence, chronic obstructive pulmonary disease, hypertension, depression, colitis. She had been seen in our office by Dr. Andres in July 2019. She has severe end-stage oxygen-dependent chronic obstructive pulmonary disease. Last pulmonary function test in 2017 revealed severe obstructive airway disease/emphysema with an FEV1 value of 0.52 L and 25% of predicted. She has been maintained on DuoNeb inhalations, Pulmicort inhalations. She presented here to the emergency room last evening with a 2 week history of progressive shortness of breath. She has a weak nonproductive cough. She is not vaccinated against COVID-19. Chest x-ray reveals no acute cardiopulmonary process. Evidence of COPD. White count 5.0. Hemoglobin 12.0. Sodium 142. Potassium 4.6. Bicarb 30. BUN 21. Creatinine 0.63. Glucose 227. AST 71. ALT 48. Urinalysis cloudy with small amount of blood and rare bacteria. Stool for occult blood was negative. Current virus by PCR negative. Troponin negative 1. ProBNP 488. She is seen today in consultation in the emergency department. Currently resting fairly comfortably in bed. She is maintaining O2 saturations in the 90s on 3 L/m per nasal cannula. Afebrile. Hemodynamically stable. She's been initiated on DuoNeb inhalations, Pulmicort, IV Solu-Medrol. The patient is seen today 12/07/2021 in follow-up on the regular medical floor. She is awake and alert in no acute distress. Currently resting fairly comfortably in bed. She is maintaining good O2 saturations up to 100% on 2 L/m per nasal cannula. She's been afebrile. Hemodynamically stable. Blood cultures reveal no growth to date. Blood glucose 128. She is continued on DuoNeb inhalations, IV Solu-Medrol. Blood cultures reveal no growth to date. Objective - Vital Signs Vital signs: Vital Signs Temp 98.1 F 12/07/21 11:45 Pulse 84 12/07/21 11:45 Resp 16 12/07/21 11:45 BP 108/67 12/07/21 11:45 Pulse Ox 100 12/07/21 11:45 Intake & Output 12/06/21 12/07/21 12/07/21 18:59 06:59 18:59 Intake Total 100 Output Total 300 Balance -200 Weight 44.452 kg Intake: Oral 100 Output: Urine 300 Other: Voiding Method Bedpan Diaper - Exam GENERAL EXAM: Alert, frail, cachectic 76-year-old female patient, on 2 L nasal cannula, comfortable in no apparent distress. HEAD: Normocephalic. EYES: Normal reaction of pupils, equal size. NOSE: Clear with pink turbinates. THROAT: No erythema or exudates. NECK: No masses, no JVD. CHEST: No chest wall deformity. LUNGS: Equal air entry with no crackles, wheeze, rhonchi or dullness. Diminished. CVS: S1 and S2 normal with no audible murmur, regular rhythm. ABDOMEN: No hepatosplenomegaly, normal bowel sounds, no guarding or rigidity. SPINE: No scoliosis or deformity SKIN: No rashes CENTRAL NERVOUS SYSTEM: No focal deficits, tone is normal in all 4 extremities. EXTREMITIES: There is no peripheral edema. No clubbing, no cyanosis. Peripheral pulses are intact. - Labs CBC & Chem 7: 12/06/21 06:09 12/06/21 06:09 Labs: Abnormal Lab Results - Last 24 Hours (Table) 12/06/21 12/06/21 12/07/21 Range/Units 17:02 23:02 01:44 POC Glucose (mg/dL) 230 H 123 H 125 H (75-99) mg/dL 12/07/21 12/07/21 Range/Units 07:12 11:12 POC Glucose (mg/dL) 116 H 128 H (75-99) mg/dL Microbiology - Last 24 Hours (Table) 12/05/21 23:21 Blood Culture - Preliminary Blood No Growth after 24 hours 12/05/21 23:05 Blood Culture - Preliminary Blood No Growth after 24 hours Assessment and Plan Assessment: 1 Acute exacerbation of severe oxygen dependent chronic obstructive pulmonary disease. FEV1 value 25% in 2018. No evidence of pneumonia. CoVID 19 screen negative. 2 History of 30+ years of smoking. 3 Anorexia/cachexia syndrome. Current BMI 16.8 kg/m 4 Hypothyroidism status post thyroidectomy 5 History of peripheral arterial occlusive disease 6 Hypertension 7 History of colitis Plan: The patient was seen and evaluated Labs reviewed Continue DuoNeb inhalations, decrease IV Solu medrol Titrate the FiO2 as tolerated Probable discharge in the a.m. We will continue to follow I have personally seen and examined the patient, performed the documentation and the assessment and plan as written. Number of minutes spent on the visit: 10.
[2021-12-07 12:29] VITALS: BMI 16.8
--- NOTE | 2021-12-07 15:01 | CDI ---
Documentation Clarification Form Date: 12/07/2021 02:49:32 PM From: Cynthia Mijares CCS, CCDS Admit Date: 12/05/2021 08:38:00 PM Patient Name: Elba Garza Visit Number: [id number] Discharge Date: ATTENTION: The Clinical Documentation Specialists (CDI) and [facility] Coding Staff appreciate your assistance in clarifying documentation. Please respond to the clarification below the line at the bottom and electronically sign. The CDI & [facility] Coding staff will review the response and follow-up if needed. Please note: Queries are made part of the Legal Health Record. If you have any questions, please contact the author of this message via ITS. Dr. Linus Simon: Protein Calorie Malnutrition is documented in the 12/06 History & Physical without further specificity of the severity. Per the 12/06 Pulmonary Consult: Anorexia/Cachexia Syndrome is documented. Additional clarification regarding the severity of malnutrition is requested. History/Risk Factors per the 12/06 H/P: COPD, O2 dep 2Lnc, Pulmonary Hypertension, Pneumonia, Chronic Hypoxic Respiratory Failure, Anemia, Colitis/IBS, Cardiac Valve Disease, Advanced Osteoporosis, Vertebral Compression Fractures, Chronic Back Pain, Hypothyroid, Former Smoker. Clinical Indicators: Presented to the ED on 12/05 via EMS with SOB x2 weeks with history of COPD and home O2 dependent. Admit with COPD Exacerbation 12/05 LAB: Total Protein 5.8, Albumin 2.7 Dietitian Consult: Current BMI: 16.8 Nutrition intake: Fair, consumed 25-50%, Heart Healthy Diet. Oral Supplements: Ensure Compact BID 220 Kcal/serving Weight: 44.452 kg. Calculated Oracle Body Weight: 54 kg Height 5 ft 4 in % Oracle Body Weight: 82%, Meeting 75% of estimated nutritional needs. Per Family member, patient has had continuous weight loss for over 2 years. Treatment 12/05: Blood glucose monitoring, Blood culture, O2 2Lnc, Full Code, INH Duoneb, IV Solumedrol 125 mg x1, INH Ventolin x1, Insulin sq, po Zithromax, po K-Dur, INH Duoneb Q2H/prn Please clarify the type of malnutrition, if known: [ ] Mild Protein-Calorie Malnutrition [X ] Moderate Protein-Calorie Malnutrition [ ] Severe Protein-Calorie Malnutrition [ ] Other condition, please specify [ ] Unable to Determine (Template Last Revised: October 2020) MTDD
[2021-12-07] MEDS: methylPREDNISolone SOD SUCCI 40 MG/ML 1 ML VIAL IV SCH (15:36)
[2021-12-07 17:32] LABS: Glucose,Whole Blood 138 mg/dL (75-99)
[2021-12-07 21:01] LABS: Glucose,Whole Blood 213 mg/dL (75-99)
[2021-12-07] MEDS: ESCITALOPRAM 10 MG TAB PO SCH (21:14)
--- NOTE | 2021-12-07 22:34 | P.PN ---
Subjective Progress Note Date: 12/07/21 Patient is a 76-year-old debilitated malnourished female was admitted for COPD exacerbation she seems to be doing better today Objective - Vital Signs Vital signs: Vital Signs Temp 97.7 F 12/07/21 19:15 Pulse 88 12/07/21 19:37 Resp 16 12/07/21 19:40 BP 92/51 12/07/21 19:15 Pulse Ox 99 12/07/21 19:15 Intake & Output 12/07/21 12/07/21 12/08/21 06:59 18:59 06:59 Intake Total 100 Output Total 300 Balance -200 Weight 44.452 kg Intake: Oral 100 Output: Urine 300 Other: Voiding Method Bedpan Bedpan Diaper # Voids 2 - Exam GENERAL: This is a [id number] in no apparent distress at the time of examination. Pleasant and cooperative. HEENT: Head is atraumatic, normocephalic. Pupils are equal, round, and reactive to light. Sclerae anicteric. Conjunctivae are clear. Neck is supple. RESPIRATORY: Positive wheezing and rhonchi bilateral CARDIOVASCULAR: Regular rate and rhythm. S1 and S2 noted. No systolic or diastolic murmur auscultated. No JVD noted. No S3 or S4 noted. GASTROINTESTINAL: No distention noted. Abdomen soft and round. Normal active bowel sounds auscultated x 4 quadrants. No pain or tenderness noted upon palpation. INTEGUMENTARY: No cyanosis. No jaundice. No rashes noted. No cellulitis noted. EXTREMITIES: 2+ peripheral pulses. No evidence of peripheral edema. No calf tenderness noted. NEUROLOGIC: Cranial nerves II-XII intact. PSYCHIATRIC: Awake, alert, and oriented X 3. Appropriate affect. Intact judgement and insight. - Labs CBC & Chem 7: 12/06/21 06:09 12/06/21 06:09 Labs: Abnormal Lab Results - Last 24 Hours (Table) 12/06/21 12/07/21 12/07/21 Range/Units 23:02 01:44 07:12 POC Glucose (mg/dL) 123 H 125 H 116 H (75-99) mg/dL 12/07/21 12/07/21 12/07/21 Range/Units 11:12 17:22 20:54 POC Glucose (mg/dL) 128 H 138 H 213 H (75-99) mg/dL Microbiology - Last 24 Hours (Table) 12/05/21 23:21 Blood Culture - Preliminary Blood No Growth after 24 hours 12/05/21 23:05 Blood Culture - Preliminary Blood No Growth after 24 hours Assessment and Plan (1) COPD with exacerbation Current Visit: Yes Status: Acute Code(s): J44.1 - CHRONIC OBSTRUCTIVE PULMONARY DISEASE W (ACUTE) EXACERBATION SNOMED Code(s): 448938209 (2) Community acquired bacterial pneumonia Current Visit: No Status: Acute Code(s): J15.9 - UNSPECIFIED BACTERIAL PNEUMONIA SNOMED Code(s): 524125811 (3) Fall Current Visit: No Status: Acute Code(s): W19.XXXA - UNSPECIFIED FALL, INITIAL ENCOUNTER SNOMED Code(s): 6811044 (4) Hypertension Current Visit: No Status: Acute Code(s): I10 - ESSENTIAL (PRIMARY) HYPERTENSION SNOMED Code(s): 96512454 (5) Lumbar degenerative disc disease Current Visit: No Status: Acute Code(s): M51.36 - OTHER INTERVERTEBRAL DISC DEGENERATION, LUMBAR REGION SNOMED Code(s): 50732136 (6) Protein calorie malnutrition Current Visit: Yes Status: Acute Code(s): E46 - UNSPECIFIED PROTEIN-CALORIE MALNUTRITION SNOMED Code(s): 856626154 Plan: Admit patient with full pulmonary consultation and progress will continue to follow patient's progress throughout her stay oxygen and hydration . continuie To make progress towards patient's discharge
[2021-12-08] MEDS: methylPREDNISolone SOD SUCCI 40 MG/ML 1 ML VIAL IV SCH ×4 (00:04→23:23)
[2021-12-08 07:14] LABS: Glucose,Whole Blood 134 mg/dL (75-99)
[2021-12-08] MEDS: LOSARTAN 50 MG TAB PO SCH (08:22)
[2021-12-08] MEDS: METOPROLOL TARTRATE 25 MG TAB PO SCH ×2 (08:22→19:35)
[2021-12-08] MEDS: FERROUS SULFATE 325 MG TAB PO SCH (08:22)
[2021-12-08] MEDS: PANTOPRAZOLE 40 MG TABLET PO SCH ×2 (08:22→19:35)
[2021-12-08] MEDS: MAGNESIUM HYDROXIDE 2,400 MG/10 ML CUP PO SCH (08:22)
[2021-12-08] MEDS: INSULIN ASPART (NovoLOG) 100 UNIT/ML VIAL SQ SCH ×4 (08:22→22:49)
[2021-12-08] MEDS: amLODIPine 5 MG TAB PO SCH (08:22)
[2021-12-08] MEDS: IPRATROPIUM-ALBUTEROL 3 ML NEB INHALATION SCH ×4 (08:30→19:50)
--- NOTE | 2021-12-08 10:13 | P.PN ---
Subjective Progress Note Date: 12/08/21 Principal diagnosis: COPD exacerbation This is a very pleasant 76-year-old female patient who has a past medical history of chronic tobacco dependence, chronic obstructive pulmonary disease, hypertension, depression, colitis. She had been seen in our office by Dr. Andres in July 2019. She has severe end-stage oxygen-dependent chronic obstructive pulmonary disease. Last pulmonary function test in 2018 revealed severe obstructive airway disease/emphysema with an FEV1 value of 0.52 L and 25% of predicted. She has been maintained on DuoNeb inhalations, Pulmicort inhalations. She presented here to the emergency room last evening with a 2 week history of progressive shortness of breath. She has a weak nonproductive cough. She is not vaccinated against COVID-19. Chest x-ray reveals no acute cardiopulmonary process. Evidence of COPD. White count 5.0. Hemoglobin 12.0. Sodium 142. Potassium 4.6. Bicarb 30. BUN 21. Creatinine 0.63. Glucose 227. AST 71. ALT 48. Urinalysis cloudy with small amount of blood and rare bacteria. Stool for occult blood was negative. Current virus by PCR negative. Troponin negative 1. ProBNP 488. She is seen today in consultation in the emergency department. Currently resting fairly comfortably in bed. She is maintaining O2 saturations in the 90s on 3 L/m per nasal cannula. Afebrile. Hemodynamically stable. She's been initiated on DuoNeb inhalations, Pulmicort, IV Solu-Medrol. The patient is seen today 12/07/2021 in follow-up on the regular medical floor. She is awake and alert in no acute distress. Currently resting fairly comfortably in bed. She is maintaining good O2 saturations up to 100% on 2 L/m per nasal cannula. She's been afebrile. Hemodynamically stable. Blood cultures reveal no growth to date. Blood glucose 128. She is continued on DuoNeb inhalations, IV Solu-Medrol. Blood cultures reveal no growth to date. The patient is seen today 12/08/2021 in follow-up on the regular medical floor. She is currently resting comfortably in bed. Awake and alert in no acute distress. Maintaining O2 saturations up to 98% on 2 L per nasal cannula. Blood cultures reveal no growth. Blood sugar 134. She is continued on DuoNeb inhalations, IV Solu-Medrol. Objective - Vital Signs Vital signs: Vital Signs Temp 97.5 F L 12/08/21 04:35 Pulse 86 12/08/21 08:41 Resp 20 12/08/21 04:35 BP 102/65 12/08/21 04:35 Pulse Ox 98 12/08/21 04:35 Intake & Output 12/07/21 12/08/21 12/08/21 18:59 06:59 18:59 Intake Total 320 Balance 320 Weight 44.452 kg Intake: Oral 320 Other: Voiding Method Bedpan Bedpan Diaper # Voids 2 2 - Exam GENERAL EXAM: Alert, frail, cachectic 76-year-old female patient, on 2 L nasal cannula, comfortable in no apparent distress. HEAD: Normocephalic. EYES: Normal reaction of pupils, equal size. NOSE: Clear with pink turbinates. THROAT: No erythema or exudates. NECK: No masses, no JVD. CHEST: No chest wall deformity. LUNGS: Equal air entry with no crackles, wheeze, rhonchi or dullness. Diminished. CVS: S1 and S2 normal with no audible murmur, regular rhythm. ABDOMEN: No hepatosplenomegaly, normal bowel sounds, no guarding or rigidity. SPINE: No scoliosis or deformity SKIN: No rashes CENTRAL NERVOUS SYSTEM: No focal deficits, tone is normal in all 4 extremities. EXTREMITIES: There is no peripheral edema. No clubbing, no cyanosis. Peripheral pulses are intact. - Labs CBC & Chem 7: 12/06/21 06:09 12/06/21 06:09 Labs: Abnormal Lab Results - Last 24 Hours (Table) 12/07/21 12/07/21 12/07/21 Range/Units 11:12 17:22 20:54 POC Glucose (mg/dL) 128 H 138 H 213 H (75-99) mg/dL 12/08/21 Range/Units 07:12 POC Glucose (mg/dL) 134 H (75-99) mg/dL Microbiology - Last 24 Hours (Table) 12/05/21 23:21 Blood Culture - Preliminary Blood No Growth after 48 hours 12/05/21 23:05 Blood Culture - Preliminary Blood No Growth after 48 hours Assessment and Plan Assessment: 1 Acute exacerbation of severe oxygen dependent chronic obstructive pulmonary disease. FEV1 value 25% in 2018. No evidence of pneumonia. CoVID 19 screen negative. 2 History of 30+ years of smoking. 3 Anorexia/cachexia syndrome. Current BMI 16.8 kg/m 4 Hypothyroidism status post thyroidectomy 5 History of peripheral arterial occlusive disease 6 Hypertension 7 History of colitis Plan: The patient was seen and evaluated Cleared for discharge from the pulmonary standpoint Continue her home pulmonary medications Complete a small prednisone taper starting at 15 mg 5 days, 10 mg for 5 days, 5 mg for 5 days then stop We will see as needed I have personally seen and examined the patient, performed the documentation and the assessment and plan as written. Number of minutes spent on the visit: 10.
[2021-12-08 11:41] LABS: Glucose,Whole Blood 141 mg/dL (75-99)
[2021-12-08 17:47] LABS: Glucose,Whole Blood 182 mg/dL (75-99)
[2021-12-08] MEDS: ESCITALOPRAM 10 MG TAB PO SCH (19:35)
[2021-12-08 21:28] LABS: Glucose,Whole Blood 147 mg/dL (75-99)
[2021-12-09 07:03] LABS: Glucose,Whole Blood 124 mg/dL (75-99)
[2021-12-09] MEDS: INSULIN ASPART (NovoLOG) 100 UNIT/ML VIAL SQ SCH ×4 (07:35→20:47)
[2021-12-09] MEDS: IPRATROPIUM-ALBUTEROL 3 ML NEB INHALATION SCH ×4 (08:00→20:07)
[2021-12-09] MEDS: methylPREDNISolone SOD SUCCI 40 MG/ML 1 ML VIAL IV SCH ×2 (08:24→18:01)
[2021-12-09 10:53] LABS: Glucose,Whole Blood 122 mg/dL (75-99)
[2021-12-09] MEDS: amLODIPine 5 MG TAB PO SCH (11:06)
[2021-12-09] MEDS: METOPROLOL TARTRATE 25 MG TAB PO SCH ×2 (11:06→20:43)
[2021-12-09] MEDS: LOSARTAN 50 MG TAB PO SCH (11:06)
[2021-12-09] MEDS: PANTOPRAZOLE 40 MG TABLET PO SCH ×2 (11:06→20:46)
[2021-12-09] MEDS: FERROUS SULFATE 325 MG TAB PO SCH (11:07)
[2021-12-09] MEDS: MAGNESIUM HYDROXIDE 2,400 MG/10 ML CUP PO SCH (11:07)
[2021-12-09 17:17] LABS: Glucose,Whole Blood 174 mg/dL (75-99)
[2021-12-09 20:20] LABS: Glucose,Whole Blood 143 mg/dL (75-99)
[2021-12-09] MEDS: ESCITALOPRAM 10 MG TAB PO SCH (20:46)
--- NOTE | 2021-12-09 21:57 | P.PN ---
Subjective Progress Note Date: 12/09/21 Principal diagnosis: Acute exacerbation of severe oxygen dependent chronic obstructive pulmonary disease Anorexia/cachexia syndrome 76-year-old female patient who has a past medical history of chronic tobacco dependence, chronic obstructive pulmonary disease, hypertension, depression, colitis. She had been seen in our office by Dr. Andres in July 2019. She has severe end-stage oxygen-dependent chronic obstructive pulmonary disease. Last pulmonary function test in 2017 revealed severe obstructive airway disease/emphysema with an FEV1 value of 0.52 L and 25% of predicted. She has been maintained on DuoNeb inhalations, Pulmicort inhalations. She presented here to the emergency room last evening with a 2 week history of progressive shortness of breath. She has a weak nonproductive cough. She is not vaccinated against COVID-19. Chest x-ray reveals no acute cardiopulmonary process. Evidence of COPD. White count 5.0. Hemoglobin 12.0. Sodium 142. Potassium 4.6. Bicarb 30. BUN 21. Creatinine 0.63. Glucose 227. AST 71. ALT 48. Urinalysis cloudy with small amount of blood and rare bacteria. Stool for occult blood was negative. Current virus by PCR negative. Troponin negative 1. ProBNP 488. She is seen today in consultation in the emergency department. Currently resting fairly comfortably in bed. She is maintaining O2 saturations in the 90s on 3 L/m per nasal cannula. Afebrile. Hemodynamically stable. She's been initiated on DuoNeb inhalations, Pulmicort, IV Solu-Medrol. Objective - Vital Signs Vital signs: Vital Signs Temp 97.7 F 12/09/21 20:22 Pulse 92 12/09/21 20:22 Resp 20 12/09/21 20:22 BP 166/65 12/09/21 20:22 Pulse Ox 95 12/09/21 20:22 Intake & Output 12/09/21 12/09/21 12/10/21 06:59 18:59 06:59 Intake Total 540 Balance 540 Intake: Oral 540 Other: Voiding Method Bedpan Diaper # Voids 1 2 - Exam GENERAL EXAM: Alert, frail, cachectic 76-year-old female patient, on 2 L nasal cannula, comfortable in no apparent distress. HEAD: Normocephalic. EYES: Normal reaction of pupils, equal size. NECK: No masses, no JVD. CHEST: No chest wall deformity. LUNGS: Equal air entry with no crackles, wheeze, rhonchi or dullness. Diminished. CVS: S1 and S2 normal with no audible murmur, regular rhythm. ABDOMEN: No hepatosplenomegaly, normal bowel sounds, no guarding or rigidity. SKIN: No rashes CENTRAL NERVOUS SYSTEM: No focal deficits, tone is normal in all 4 extremities. EXTREMITIES: There is no peripheral edema. No clubbing, no cyanosis. Peripheral pulses are intact. - Labs CBC & Chem 7: 12/06/21 06:09 12/06/21 06:09 Labs: Abnormal Lab Results - Last 24 Hours (Table) 12/09/21 12/09/21 12/09/21 Range/Units 07:00 10:51 17:15 POC Glucose (mg/dL) 124 H 122 H 174 H (75-99) mg/dL 12/09/21 Range/Units 20:18 POC Glucose (mg/dL) 143 H (75-99) mg/dL Microbiology - Last 24 Hours (Table) 12/05/21 23:21 Blood Culture - Preliminary Blood No Growth after 72 hours 12/05/21 23:05 Blood Culture - Preliminary Blood No Growth after 72 hours Assessment and Plan Assessment: 1. Acute exacerbation of severe oxygen dependent chronic obstructive pulmonary disease. FEV1 value 25% in 2018. No evidence of pneumonia. CoVID 19 screen negative; patient does have 3+ years history of smoking. - Patient has been stable and if cleared by pulmonary service was discharged on prednisone taper 2. Anorexia/cachexia syndrome; 3. Hypothyroidism status post thyroidectomy; not on any thyroid replacement therapy 4. Anxiety/depression; Klonopin 0.5 mg daily when necessary along with Lexapro 10 mg daily at bedtime 5. Hypertension; stable on amlodipine 5 mg daily; losartan 100 mg daily; metoprolol 12.5 mg twice a day 6. Debility/weakness; patient has been evaluated by PT/OT and is recommended skilled rehab; this was discussed in great detail with patient and her at bedside; they're agreeable
[2021-12-10 01:58] LABS: Glucose,Whole Blood 148 mg/dL (75-99)
[2021-12-10 08:47] LABS: Glucose,Whole Blood 91 mg/dL (75-99)
[2021-12-10] MEDS: METOPROLOL TARTRATE 25 MG TAB PO SCH ×2 (10:37→20:08)
[2021-12-10] MEDS: FERROUS SULFATE 325 MG TAB PO SCH (10:37)
[2021-12-10] MEDS: PANTOPRAZOLE 40 MG TABLET PO SCH ×2 (10:37→20:55)
[2021-12-10] MEDS: amLODIPine 5 MG TAB PO SCH (10:37)
[2021-12-10] MEDS: LOSARTAN 50 MG TAB PO SCH (10:37)
[2021-12-10] MEDS: MAGNESIUM HYDROXIDE 2,400 MG/10 ML CUP PO SCH (10:38)
[2021-12-10] MEDS: predniSONE 5 MG TAB PO SCH (12:37)
[2021-12-10] MEDS: NYSTATIN 100,000 UNIT/ML SUSP 500,000 UNIT/5 ML CUP PO SCH ×2 (17:55→20:54)
[2021-12-10] MEDS: ESCITALOPRAM 10 MG TAB PO SCH (20:55)
[2021-12-10 21:54] VITALS: RESP 18
[2021-12-11] MEDS: LOSARTAN 50 MG TAB PO SCH (08:01)
[2021-12-11] MEDS: FERROUS SULFATE 325 MG TAB PO SCH (08:01)
[2021-12-11] MEDS: METOPROLOL TARTRATE 25 MG TAB PO SCH (08:01)
[2021-12-11] MEDS: PANTOPRAZOLE 40 MG TABLET PO SCH (08:02)
[2021-12-11] MEDS: amLODIPine 5 MG TAB PO SCH (08:02)
[2021-12-11] MEDS: NYSTATIN 100,000 UNIT/ML SUSP 500,000 UNIT/5 ML CUP PO SCH ×3 (08:02→12:52)
[2021-12-11] MEDS: MAGNESIUM HYDROXIDE 2,400 MG/10 ML CUP PO SCH (08:02)
[2021-12-11] MEDS: predniSONE 5 MG TAB PO SCH (08:03)
[2021-12-11 11:16] VITALS: BP 119/75; PULSE 75; TEMP 98.6
--- NOTE | 2021-12-11 12:07 | P.DS ---
Providers Date of admission: 12/05/21 20:38 Expected date of discharge: 12/11/21 Attending physician: Linus Simon Consults: 12/05/21 21:26 Consult Physician Urgent Consulting Provider: Jenise Andres Reason/Comments: COPD exacerbation Do you want consulting provider notified?: Yes Primary care physician: Linus Simon - Discharge Diagnosis(es) (1) COPD with exacerbation Current Visit: Yes Status: Acute (2) Community acquired bacterial pneumonia Current Visit: No Status: Acute (3) Fall Current Visit: No Status: Acute (4) Hypertension Current Visit: No Status: Acute (5) Lumbar degenerative disc disease Current Visit: No Status: Acute (6) Protein calorie malnutrition Current Visit: Yes Status: Acute Patient Condition at Discharge: Fair Plan - Discharge Summary Discharge Rx Participant: No New Discharge Prescriptions: New predniSONE 5 mg PO DAILY #30 tab Continue Escitalopram Oxalate [Lexapro] 10 mg PO HS amLODIPine [Norvasc] 5 mg PO DAILY tab Magnesium Hydroxide [Milk of Magnesia] 2,400 mg PO DAILY Budesonide [Pulmicort] 0.5 mg INHALATION RT-BID Pantoprazole Sodium [Protonix] 40 mg PO BID Hydrocortisone Pr Cream [Proctosol-Hc 2.5%] 1 applic RECTAL DIRECTED PRN PRN Reason: WITH EVERY BOWEL MOVEMENT clonazePAM [KlonoPIN] 0.5 mg PO DAILY PRN PRN Reason: Anxiety Ipratropium-Albuterol Nebulize [Duoneb 0.5 mg-3 mg/3 ml Soln] 3 ml INHALATION RT-QID Ferrous Sulfate [Iron (65 MG Elemental)] 325 mg PO DAILY Metoprolol Tartrate [Lopressor] 12.5 mg PO BID Losartan Potassium 100 mg PO DAILY Discharge Medication List Escitalopram Oxalate [Lexapro] 10 mg PO HS 03/21/20 [History] amLODIPine [Norvasc] 5 mg PO DAILY tab 03/24/20 [Rx] Budesonide [Pulmicort] 0.5 mg INHALATION RT-BID 12/05/21 [History] Ferrous Sulfate [Iron (65 MG Elemental)] 325 mg PO DAILY 12/05/21 [History] Hydrocortisone Pr Cream [Proctosol-Hc 2.5%] 1 applic RECTAL DIRECTED PRN 12/05/21 [History] Ipratropium-Albuterol Nebulize [Duoneb 0.5 mg-3 mg/3 ml Soln] 3 ml INHALATION RT-QID 12/05/21 [History] Losartan Potassium 100 mg PO DAILY 12/05/21 [History] Magnesium Hydroxide [Milk of Magnesia] 2,400 mg PO DAILY 12/05/21 [History] Metoprolol Tartrate [Lopressor] 12.5 mg PO BID 12/05/21 [History] Pantoprazole Sodium [Protonix] 40 mg PO BID 12/05/21 [History] clonazePAM [KlonoPIN] 0.5 mg PO DAILY PRN 12/05/21 [History] predniSONE 5 mg PO DAILY #30 tab 12/08/21 [Rx] Follow up Appointment(s)/Referral(s): Linus Simon DO [Primary Care Provider] - 2 Weeks Discharge Disposition: HOME SELF-CARE
== END 2021-12-11 13:29 | DRG 190 ==
LOC: EC 19:35 → 4SSUR 20:38 → 5NMEDONC 12-06 00:56
PROVIDERS: ADMIT Family Medicine; ATTEND Family Medicine
DX: J43.9 Emphysema, unspecified (principal); J15.9 Unspecified bacterial pneumonia; J96.11 Chronic respiratory failure with hypoxia; R64 Cachexia; Z68.1 Body mass index [BMI] 19.9 or less, adult; E44.0 Moderate protein-calorie malnutrition; M51.36 Other intervertebral disc degeneration, lumbar region; M81.0 Age-related osteoporosis without current pathological fracture; Z91.81 History of falling; Z20.822 Contact with and (suspected) exposure to COVID-19; Z28.310 Unvaccinated for COVID-19; I35.9 Nonrheumatic aortic valve disorder, unspecified; I73.9 Peripheral vascular disease, unspecified; E89.0 Postprocedural hypothyroidism; R63.0 Anorexia; Z87.891 Personal history of nicotine dependence; Z99.81 Dependence on supplemental oxygen; F32.A Depression, unspecified; G89.29 Other chronic pain; F41.9 Anxiety disorder, unspecified; I10 Essential (primary) hypertension; I27.20 Pulmonary hypertension, unspecified; K58.9 Irritable bowel syndrome, unspecified; Z79.899 Other long term (current) drug therapy; Z82.49 Family history of ischemic heart disease and other diseases of the circulatory system; Z86.79 Personal history of other diseases of the circulatory system; Z90.710 Acquired absence of both cervix and uterus; Z88.0 Allergy status to penicillin; Z88.8 Allergy status to other drugs, medicaments and biological substances; Z91.010 Allergy to peanuts; Z98.890 Other specified postprocedural states; Z79.51 Long term (current) use of inhaled steroids; Z90.49 Acquired absence of other specified parts of digestive tract; Z87.01 Personal history of pneumonia (recurrent)
CPT/HCPCS: 36415; 71045; 80053; 81001; 82272; 83735; 83880; 84484; 85025; 85610; 85730; 86850; 86900; 86901; 87040; 87635; 93005; 94640; 96374; 96376; 99285